=== PATIENT | male | born 1970 | race Hispanic/Latino ===

== ENCOUNTER 2018-04-02 10:42 | Inpatient (IN) | payer OTHER ==
[2018-04-02] MEDS ORDERED: ATIVAN IV PRN (10:58)
--- NOTE | 2018-04-02 11:10 | Emergency Department Report ---
ED General Adult HPI - General Chief complaint: Altered Mental Status Stated complaint: DETOX Time Seen by Provider: 04/02/18 10:49 Source: patient, police, EMS (ems notes not available at time of chart dictation), RN notes reviewed Mode of arrival: Stretcher Limitations: Altered Mental Status - History of Present Illness Initial comments: This is a 47-year-old gentleman who is not known to this provider previously, who was sent to the ER for evaluation of delirium and possible alcohol withdrawal. Aspirin close documentation from local incarceration facility, patient "is confused and only oriented to self and thinks he is in the hospital. The p atient is laying in bed with tremors and an active delirium tremens and is on highest detox protocol of L at this time. Patient does not come to door or speak and when he does he is tangential and confused for recent and remote memory. Patient admits to drinking 3-4 beers a day and a fifth of vodka daily." The patient denies headache, neck pain, chest pain, abdominal pain, shortness of breath. He denies urinary symptoms, homicidality, suicidality, and intention to overdose. He corroborates that he does drink the aforementioned quantity of alcohol on a daily basis. His only request to this provider is that he get his BuSpar prescription, which he reports is at home. -: unknown Quality: other Consistency: other Improves with: other Worsens with: other Associated Symptoms: confusion, malaise, rash (chronic rash, consistent with history of psoriasis), weakness. denies: chest pain, cough, diaphoresis, fever/chills, headaches, loss of appetite, nausea/vomiting, seizure, shortness of breath, syncope - Related Data Allergies Allergy/AdvReac Type Severity Reaction Status Date / Time No Known Allergies Allergy Unverified 04/02/18 15:12 ED Review of Systems ROS: Stated complaint: DETOX Other details as noted in HPI Comment: Unobtainable due to pts medical conditions Constitutional: malaise. denies: fever Eyes: denies: eye discharge Respiratory: denies: cough Cardiovascular: denies: chest pain Gastrointestinal: denies: abdominal pain Genitourinary: denies: dysuria Musculoskeletal: arthralgia, myalgia, other (chronic) Skin: rash (chronic) Neurological: confusion (as per old medical records) Psychiatric: denies: homicidal thoughts, suicidal thoughts ED Physical Exam - General Limitations: Other (patient appears to be confused) General appearance: alert, in no apparent distress - Head Head exam: Present: atraumatic, normocephalic - Eye Eye exam: Present: normal appearance, EOMI. Absent: nystagmus - ENT ENT exam: Present: normal exam, normal orophraynx, mucous membranes moist, normal external ear exam, other (chronic facial rash noted, consistent with history of psoriasis) - Neck Neck exam: Present: normal inspection, full ROM. Absent: tenderness, meningismus - Respiratory Respiratory exam: Present: normal lung sounds bilaterally. Absent: respiratory distress - Cardiovascular Cardiovascular Exam: Present: regular rate, normal rhythm, normal heart sounds. Absent: bradycardia, tachycardia, irregular rhythm, systolic murmur, diastolic murmur, rubs, gallop - GI/Abdominal GI/Abdominal exam: Present: soft. Absent: distended, tenderness, guarding, rebound, rigid, pulsatile mass - Rectal Rectal exam: Present: deferred - Extremities Exam Extremities exam: Present: normal inspection (patient has chronic appearing erythematous distribution to right knee, it is nontender, and there is no joint laxity. The compartments are soft. Patient reports that this is a chronic finding), full ROM, other (2+ pulses noted in the bilateral upper, lower extremities. Compartments soft. No long bony tenderness. The pelvis is stable.). Absent: calf tenderness - Back Exam Back exam: Present: normal inspection, full ROM. Absent: tenderness, CVA tenderness (R), paraspinal tenderness, vertebral tenderness - Neurological Exam Neurological exam: Present: alert (patient is alert to name. He does not know the year. He thinks he is in a hospital.), other (there is no facial droop. The tongue is midline. Extraocular movements are intact bilaterally. 5 out of 5 strength in 4 extremities. Sensation intact to light touch in 4 extremities. Patient has tremor in 4 extremities. It appears to be intentional. It is not resting. No obvious tongue fasciculations noted.) - Psychiatric Psychiatric exam: Present: flat affect. Absent: homicidal ideation, suicidal ideation - Skin Skin exam: Present: warm ED Course Vital Signs 04/02/18 04/02/18 04/02/18 09:35 09:48 10:58 Temperature Pulse Rate 78 Respiratory 18 Rate Blood Pressure 175/99 175/99 175/99 O2 Sat by Pulse 100 99 Oximetry 04/02/18 04/02/18 04/02/18 11:06 11:08 11:38 Temperature 98.4 F Pulse Rate 74 Respiratory 13 13 15 Rate Blood Pressure 141/80 141/80 141/80 O2 Sat by Pulse 100 Oximetry 04/02/18 04/02/18 12:00 12:16 Temperature Pulse Rate 77 89 Respiratory 18 12 Rate Blood Pressure 140/74 140/74 O2 Sat by Pulse Oximetry - Reevaluation(s) Reevaluation #1: 04/02/18 11:09 Differential diagnosis, including not limited to: Alcohol withdrawal, toxic encephalopathy, metabolic encephalopathy, electrolyte derangements Assessment and plan: 47-year-old gentleman with probable mild alcohol withdrawal. He follows commands and is protecting his airway, he has tremors that are intentional in 4 extremities, they do not appear to be present at rest, and he does not have tongue fasciculations. Clinically doubt delirium tremens per se, but finally feasible that patient may be on the alcohol withdrawal spectrum. He is not homicidal or suicidal, and does not require 1013 at this time. He'll be placed on a traffic monitor specialist, x-ray of the chest, noncontrast CT scan of the brain will be obtained; there is no history of trauma. Patient was started on D5 half-normal, and he'll be started on benzodiazepines as needed in accordance with this [facility] protocol Reevaluation #2: 04/02/18 12:03 Laboratory studies show evidence of coagulopathy, hypokalemia, hypomagnesemia, l actic acidosis likely secondary to alcohol dependence, and hyperbilirubinemia, likely secondary to hepatocellular dysfunction, secondary to alcohol consumption. Most concerning, the patient's laboratory studies suggest rhabdomyolysis, with a creatinine kinase of 7700. We will give him IV fluids, h e will be given D5 half-normal for presumed starvation ketosis, lactic acidosis, his electrolytes will be repleted, and he will be admitted to the medical service. A noncontrast CT scan of the brain is negative. X-ray of the chest interpreted by this provider is negative. Elevated lactic acidosis is likely secondary to chronic alcoholism, at this point time, do not currently suspect pneumonia, urinary tract infection or bacteremia. Reevaluation #3: 04/02/18 13:26 Dr. Putnam, the hospital physician, accepts the patient to the medical service. ED Medical Decision Making - Lab Data Result diagrams: 04/02/18 11:05 04/02/18 11:05 Vital Signs 04/02/18 04/02/18 11:06 11:08 Temperature 98.4 F Respiratory 13 Rate Blood Pressure 141/80 O2 Sat by Pulse 100 Oximetry - EKG Data -: EKG Interpreted by Ak EKG shows normal: sinus rhythm - EKG Data When compared to previous EKG there are: previous EKG unavailable 04/02/18 11:10 Limited by motion artifact, normal sinus, 79 beats per minutes, motion artifact, QTC prolonged, I left ventricular voltage, borderline atrial enlargement, abnormal EKG, not consistent with ST elevation myocardial infarction - Radiology Data Radiology results: report reviewed, image reviewed Noncontrast CT ET scan of the brain is negative. X-ray of the chest, interpreted by this provider is negative for acute disease. Critical care attestation.: If time is entered above; I have spent that time in minutes in the direct care of this critically ill patient, excluding procedure time. ED Disposition Clinical Impression: Alcohol withdrawal delirium, Hypokalemia, Hypomagnesemia Rhabdomyolysis Qualifiers: Rhabdomyolysis type: non-traumatic Qualified Code(s): M62.82 - Rhabdomyolysis Disposition: DC-09 OP ADMIT IP TO THIS HOSP Is pt being admited?: Yes Condition: Fair
--- NOTE | 2018-04-02 11:28 | Cat Scan Report ---
CT HEAD WITHOUT CONTRAST: HISTORY: EtOH delirium. TECHNIQUE: Sequential 2.5mm CT images. COMPARISON: none. FINDINGS: Cerebral Parenchyma: Within normal limits. Cerebellum: Within normal limits. Brainstem: Within normal limits. Ventricles: Normal. Sella: Normal. Extra-axial spaces: Normal. Basal Cisterns: Normal. Intracranial Hemorrhage: None. Midline Shift: None. Calvarium: Normal. Sinuses: Normal. Mastoid Air Cells: Normal. Visualized Orbits: Normal. IMPRESSION: Cranial CT scan within normal limits.
[2018-04-02] MEDS: ATIVAN IV PRN ×3 (11:41→19:54)
[2018-04-02 11:42] LABS: Alanine Aminotransferase 47 units/L (7-56); BUN/Creatinine Ratio 15; Blood Urea Nitrogen 9 mg/dL (9-20); Calcium 8.6 mg/dL (8.4-10.2); Hemolysis Index 6
[2018-04-02] MEDS ORDERED: K-DUR PO ONE (11:44)
[2018-04-02 11:50] LABS: Hematocrit 46.6 % (35.5-45.6); Mean Corpuscular HGB Conc 34 % (32-34); Mean Corpuscular Hemoglobin 36 pg (28-32); Mean Corpuscular Volume 105 fl (84-94); Red Blood Count 4.46 M/mm3 (3.65-5.03); Red Cell Distribution Width 14.5 % (13.2-15.2)
[2018-04-02 11:57] LABS: INR 1.68 (0.87-1.13)
[2018-04-02] MEDS ORDERED: NACL 0.9% 1000 ML 2,000 ML IV ONE (11:57)
[2018-04-02 11:58] LABS: Partial Thromboplastin Time 36.7 Sec. (24.2-36.6)
[2018-04-02] MEDS: KCL 10MEQ/100ML 10 MEQ/100 ML BAG IV SCH ×2 (12:21→13:27)
--- NOTE | 2018-04-02 12:25 | XRay Report ---
AP CHEST: HISTORY: Altered mental status, withdrawal AP view of the chest demonstrates a normal mediastinal and cardiac contour with clear lungs and normal bony and soft tissue structures. IMPRESSION: Unremarkable AP chest.
[2018-04-02] MEDS ORDERED: MAGNESIUM SULFATE 2GM/50ML 2 GM/50 ML BAG IV ONE (12:44)
[2018-04-02 12:57] LABS: Basophils % (Manual) 0 % (0.0-1.8); Eosinophils % (Manual) 0 % (0.0-4.3); Total Cells Counted 100
[2018-04-02 12:58] LABS: Macrocytosis 1+; Poikilocytosis 1+
[2018-04-02 12:59] LABS: Platelet Count 29 K/mm3 (140-440); Platelet Estimate Appears Decreased
--- NOTE | 2018-04-02 13:36 | History and Physical Report ---
History of Present Illness Chief complaint: confused. History of present illness: 47 YO Male with ETOH Abuse, Psoriasis presents to ED for evaluation. Pt is confused, lethargic and unable to provide detailed history. Pt history taken from ED staff. Pt currently incarcerated. Pt reports to drinkin g 3-4 beers daily as well as a fifth of vodka daily. No reports of fever, chills, CP, Palpitations, NVD, Trauma, BRBPR, Unintentional weight loss, or night sweats. Pt seen and evaluated in ED and found to be confused, agitated, tremulous and to have Alcohol Withdrawl with Delirium Tremens as well as Rhabdomyolysis. Pt i nitiated on [facility] protocol, and admitted to Telemetry. No further history obtainable. Past History Past Medical History: other (Psoriasis) Past Surgical History: No surgical history, Other (reviewed) Social history: alcohol abuse Family history: no significant family history (reviewed) Medications and Allergies Active Meds: Active Medications Chlordiazepoxide HCl (Librium) 50 mg PO Q1HR PRN PRN Reason: CIWA-Ar 8-15 Dextrose/Sodium Chloride (D5/0.45ns) 1,000 mls @ 0 mls/hr IV DIRECT REJI Magnesium Sulfate (Magnesium Sulfate 2gm/50ml) 2 gm in 50 mls @ 25 mls/hr IV ONCE ONE Stop: 04/02/18 14:43 Last Admin: 04/02/18 13:18 Dose: 25 mls/hr Documented by: Potassium Chloride (Kcl 10meq/100ml) 10 meq in 100 mls @ 100 mls/hr IV Q1H REJI Stop: 04/02/18 13:59 Last Admin: 04/02/18 13:27 Dose: 100 mls/hr Documented by: Lorazepam (Ativan) 2 mg IV Q1HR PRN PRN Reason: CIWA-Ar 8-15 Last Admin: 04/02/18 11:41 Dose: 2 mg Documented by: Lorazepam (Ativan) 4 mg IV Q1HR PRN PRN Reason: CIWA-Ar 16-25 Lorazepam (Ativan) 4 mg IV Q15MIN PRN PRN Reason: CIWA-Ar >25 Review of Systems ROS unobtainable: due to mental status Exam - Constitutional Vitals: Temp Pulse Resp BP Pulse Ox 98.4 F 89 12 140/74 100 04/02/18 11:08 04/02/18 12:16 04/02/18 12:16 04/02/18 12:16 04/02/18 11:06 General appearance: Present: mild distress - EENT Eyes: Present: miosis - Neck Neck: Present: supple, normal ROM - Respiratory Respiratory effort: normal Respiratory: bilateral: CTA - Cardiovascular Heart Sounds: Present: S1 & S2. Absent: rub, click - Extremities Extremities: pulses symmetrical, No edema Peripheral Pulses: within normal limits - Abdominal General gastrointestinal: Present: soft, non-tender, non-distended, normal bowel sounds Male genitourinary: Present: normal - Integumentary Integumentary: Present: clear, dry, erythema, rash - Musculoskeletal Musculoskeletal: generalized weakness - Psychiatric Psychiatric: no appropriate mood/affect, no intact judgment & insight, no memory intact, agitated - Neurologic Neurologic: moves all extremities, no gait normal Results - Labs CBC & Chem 7: 04/02/18 11:05 04/02/18 11:05 Labs: Abnormal lab results 04/02/18 04/02/18 04/02/18 Range/Units 11:05 11:05 11:05 WBC 3.8 L (4.5-11.0) K/mm3 Hgb 16.0 H (11.8-15.2) gm/dl Hct 46.6 H (35.5-45.6) % MCV 105 H (84-94) fl MCH 36 H (28-32) pg Plt Count 29 L (140-440) K/mm3 Monocytes % (Manual) 10.0 H (0.0-7.3) % Lymphocytes # (Manual) 0.8 L (1.2-5.4) K/mm3 PT 20.2 H (12.2-14.9) Sec. INR 1.68 H (0.87-1.13) APTT 36.7 H (24.2-36.6) Sec. Sodium 136 L (137-145) mmol/L Potassium 3.2 L (3.6-5.0) mmol/L Chloride 93.0 L (98-107) mmol/L Creatinine 0.6 L (0.8-1.5) mg/dL Lactic Acid (0.7-2.0) mmol/L Magnesium 1.40 L (1.7-2.3) mg/dL Total Bilirubin 6.40 H (0.1-1.2) mg/dL AST 289 H (5-40) units/L Total Creatine Kinase 7792 H (55-170) units/L Albumin 3.0 L (3.9-5) g/dL Salicylates (2.8-20.0) mg/dL Acetaminophen (10.0-30.0) ug/mL 04/02/18 04/02/18 04/02/18 Range/Units 11:05 11:05 11:05 WBC (4.5-11.0) K/mm3 Hgb (11.8-15.2) gm/dl Hct (35.5-45.6) % MCV (84-94) fl MCH (28-32) pg Plt Count (140-440) K/mm3 Monocytes % (Manual) (0.0-7.3) % Lymphocytes # (Manual) (1.2-5.4) K/mm3 PT (12.2-14.9) Sec. INR (0.87-1.13) APTT (24.2-36.6) Sec. Sodium (137-145) mmol/L Potassium (3.6-5.0) mmol/L Chloride (98-107) mmol/L Creatinine (0.8-1.5) mg/dL Lactic Acid 2.30 H* (0.7-2.0) mmol/L Magnesium (1.7-2.3) mg/dL Total Bilirubin (0.1-1.2) mg/dL AST (5-40) units/L Total Creatine Kinase (55-170) units/L Albumin (3.9-5) g/dL Salicylates < 0.3 L (2.8-20.0) mg/dL Acetaminophen < 5.0 L (10.0-30.0) ug/mL Assessment and Plan - Patient Problems (1) Encephalopathy Current Visit: Yes Status: Acute Plan to address problem: CT head, neuro check, aspiration precautions, fall precautions, seizure precautions. (2) Alcohol withdrawal delirium Current Visit: Yes Status: Acute Plan to address problem: Ciwa protocol, ativan prn, admit to telemetry (3) Rhabdomyolysis Current Visit: Yes Status: Acute Qualifiers: Rhabdomyolysis type: non-traumatic Qualified Code(s): M62.82 - Rhabdomyolysis Plan to address problem: IVF resuscitation, supportive care, CK level (4) DVT prophylaxis Current Visit: Yes Status: Acute Plan to address problem: SCD to BLE while in bed.
[2018-04-02] MEDS ORDERED: ZOFRAN IV PRN (13:39)
[2018-04-02] MEDS ORDERED: SODIUM CHLORIDE FLUSH SYRINGE 10 ML IV PRN (13:39)
[2018-04-02] MEDS ORDERED: TYLENOL PO PRN (13:39)
[2018-04-02] MEDS: LIBRIUM PO PRN ×2 (13:50→17:00)
[2018-04-02] MEDS: D5/0.45NS 1,000 ML IV SCH ×2 (16:28→20:10)
[2018-04-02 20:11] LABS: Bilirubin,Urine NEG (Negative); Blood,Urine NEG (Negative); Color,Urine Yellow (Yellow); Protein,Urine <15 mg/dL mg/dL (Negative)
[2018-04-02] MEDS: SODIUM CHLORIDE FLUSH SYRINGE 10 ML IV SCH (21:28)
[2018-04-03] MEDS: D5/0.45NS 1,000 ML IV SCH (04:46)
[2018-04-03 06:24] LABS: Alanine Aminotransferase 47 units/L (7-56); Albumin 2.6 g/dL (3.9-5); BUN/Creatinine Ratio 8; Blood Urea Nitrogen 5 mg/dL (9-20); Calcium 7.4 mg/dL (8.4-10.2); Hemolysis Index 7
[2018-04-03] MEDS: SODIUM CHLORIDE FLUSH SYRINGE 10 ML IV SCH ×2 (09:01→22:52)
[2018-04-03] MEDS ORDERED: K-DUR PO ONE ×2 (11:30→22:00)
[2018-04-03 11:34] LABS: Hemoglobin 13.6 gm/dl (11.8-15.2); Mean Corpuscular HGB Conc 34 % (32-34); Mean Corpuscular Hemoglobin 36 pg (28-32); Mean Corpuscular Volume 105 fl (84-94); Red Cell Distribution Width 14.4 % (13.2-15.2)
[2018-04-03 11:37] LABS: Platelet Count 28 K/mm3 (140-440)
[2018-04-03] MEDS: KCL 10MEQ/100ML 10 MEQ/100 ML BAG IV SCH ×3 (11:51→15:06)
--- NOTE | 2018-04-03 18:08 | Progress Note ---
Assessment and Plan / Encephalopathy, alfred from alcohol withdrawl Unremarkable CT head, cont neuro check, aspiration precautions, fall precautions, seizure precautions. / Alcohol withdrawal delirium Ciwa protocol, ativan prn, monitor at telemetry / Rhabdomyolysis IVF resuscitation, supportive care, monitor CK level / DVT prophylaxis SCD to BLE while in bed. Subjective Date of service: 04/03/18 Interval history: Patient seen and examined No acute event o/n appears on restarint, still little confused Objective - Exam Narrative Exam: General appearance: Present: mild distress - EENT Eyes: Present: miosis - Neck Neck: Present: supple, normal ROM - Respiratory Respiratory effort: normal Respiratory: bilateral: CTA - Cardiovascular Heart Sounds: Present: S1 & S2. Absent: rub, click - Extremities Extremities: pulses symmetrical, No edema Peripheral Pulses: within normal limits - Abdominal General gastrointestinal: Present: soft, non-tender, non-distended, normal bowel sounds Male genitourinary: Present: normal - Integumentary Integumentary: Present: clear, dry, erythema, rash - Musculoskeletal Musculoskeletal: generalized weakness - Psychiatric Psychiatric: appropriate mood/affect, no intact judgment & insight, no memory intact, not agitated, more quite - Neurologic Neurologic: moves all extremities, no gait normal - Constitutional Vitals: Vital Signs - 12hr 04/03/18 04/03/18 04/03/18 08:19 09:17 10:00 Temperature 98.3 F Pulse Rate 78 73 Pulse Rate [ 78 From Monitor] Respiratory 16 16 Rate Blood Pressure 147/91 O2 Sat by Pulse 99 99 98 Oximetry 04/03/18 04/03/18 13:50 13:53 Temperature 98.3 F 98.2 F Pulse Rate 74 Pulse Rate [ From Monitor] Respiratory 17 18 Rate Blood Pressure 152/86 125/83 O2 Sat by Pulse 98 Oximetry - Labs CBC & Chem 7: 04/04/18 06:21 04/04/18 06:21 Labs: Abnormal lab results 04/03/18 04/03/18 04/03/18 Range/Units 05:00 06:41 11:20 WBC 3.2 L (4.5-11.0) K/mm3 MCV 105 H (84-94) fl MCH 36 H (28-32) pg Plt Count 28 L (140-440) K/mm3 Sodium 133 L (137-145) mmol/L Potassium 2.9 L* (3.6-5.0) mmol/L Chloride 93.5 L (98-107) mmol/L BUN 5 L (9-20) mg/dL Creatinine 0.6 L (0.8-1.5) mg/dL Glucose 108 H (75-100) mg/dL POC Glucose 121 H (70-105) Calcium 7.4 L (8.4-10.2) mg/dL Total Bilirubin 6.10 H (0.1-1.2) mg/dL AST 275 H (5-40) units/L Total Protein 5.6 L D (6.3-8.2) g/dL Albumin 2.6 L (3.9-5) g/dL 12/18/18 Range/Units 17:20 WBC (4.5-11.0) K/mm3 MCV (84-94) fl MCH (28-32) pg Plt Count (140-440) K/mm3 Sodium (137-145) mmol/L Potassium 3.2 L (3.6-5.0) mmol/L Chloride (98-107) mmol/L BUN (9-20) mg/dL Creatinine (0.8-1.5) mg/dL Glucose (75-100) mg/dL POC Glucose (70-105) Calcium (8.4-10.2) mg/dL Total Bilirubin (0.1-1.2) mg/dL AST (5-40) units/L Total Protein (6.3-8.2) g/dL Albumin (3.9-5) g/dL
[2018-04-03] MEDS: LIBRIUM PO PRN (22:52)
[2018-04-04 06:33] LABS: Hematocrit 38.1 % (35.5-45.6); Hemoglobin 12.9 gm/dl (11.8-15.2)
--- NOTE | 2018-04-04 06:39 | XRay Report ---
FINAL REPORT EXAM: XR KNEE 3V RT HISTORY: New bruise and swelling TECHNIQUE: Three views of the right knee were submitted. FINDINGS: There is prominent prepatellar and infrapatellar anterior soft tissue swelling. Joint fluid is not se en. There is no evidence of fracture. All 3 compartments otherwise are well maintained. IMPRESSION: Anterior prepatellar and infrapatellar soft tissue swelling. No evidence of fracture.
[2018-04-04] MEDS: D5/0.45NS 1,000 ML IV SCH ×3 (06:54→22:03)
[2018-04-04 07:12] LABS: BUN/Creatinine Ratio 5; Blood Urea Nitrogen 3 mg/dL (9-20); Calcium 7.3 mg/dL (8.4-10.2); Hemolysis Index 10
[2018-04-04] MEDS: SODIUM CHLORIDE FLUSH SYRINGE 10 ML IV SCH ×2 (11:00→22:04)
[2018-04-04] MEDS: K-DUR PO SCH (15:39)
--- NOTE | 2018-04-04 16:49 | Progress Note ---
Assessment and Plan / Encephalopathy, likley from alcohol withdrawl Unremarkable CT head, cont neuro check, aspiration precautions, fall precautions, seizure precautions. / Alcohol withdrawal delirium Ciwa protocol, ativan prn, monitor at telemetry / Rhabdomyolysis IVF resuscitation, supportive care, monitor CK level / DVT prophylaxis SCD to BLE while in bed. Subjective Date of service: 04/04/18 Interval history: Patient seen and examined No acute event o/n off restraint today, still little confused but following commend Objective - Exam Narrative Exam: General appearance: Present: mild distress - EENT Eyes: Present: miosis - Neck Neck: Present: supple, normal ROM - Respiratory Respiratory effort: normal Respiratory: bilateral: CTA - Cardiovascular Heart Sounds: Present: S1 & S2. Absent: rub, click - Extremities Extremities: pulses symmetrical, No edema Peripheral Pulses: within normal limits - Abdominal General gastrointestinal: Present: soft, non-tender, non-distended, normal bowel sounds Male genitourinary: Present: normal - Integumentary Integumentary: Present: clear, dry, erythema, rash - Musculoskeletal Musculoskeletal: generalized weakness - Psychiatric Psychiatric: appropriate mood/affect, no intact judgment & insight, no memory intact, not agitated, more quite - Neurologic Neurologic: moves all extremities, no gait normal - Constitutional Vitals: Vital Signs - 12hr 04/04/18 04/04/18 04/04/18 08:31 10:00 13:17 Temperature 97.9 F 98.0 F Pulse Rate 76 73 81 Respiratory 20 20 Rate Blood Pressure 124/72 137/75 O2 Sat by Pulse 95 98 Oximetry - Labs CBC & Chem 7: 04/04/18 06:21 04/04/18 06:21 Labs: Abnormal lab results 04/03/18 04/04/18 Range/Units 17:20 06:21 Sodium 131 L (137-145) mmol/L Potassium 3.2 L (3.6-5.0) mmol/L Chloride 94.8 L (98-107) mmol/L BUN 3 L (9-20) mg/dL Creatinine 0.6 L (0.8-1.5) mg/dL Glucose 104 H (75-100) mg/dL Calcium 7.3 L (8.4-10.2) mg/dL
[2018-04-04] MEDS: ATIVAN IV PRN (19:44)
[2018-04-04] MEDS ORDERED: ATIVAN IV PRN ×2 (20:45)
[2018-04-05] MEDS: D5/0.45NS 1,000 ML IV SCH (07:04)
[2018-04-05] MEDS: K-DUR PO SCH (10:28)
[2018-04-05] MEDS: SODIUM CHLORIDE FLUSH SYRINGE 10 ML IV SCH (10:39)
--- NOTE | 2018-04-05 16:41 | Progress Note ---
Assessment and Plan / Encephalopathy, alfred from alcohol withdrawl Unremarkable CT head, cont neuro check, aspiration precautions, fall precautions, seizure precautions. cont restraint as he is still confused and unsteady alecia / Alcohol withdrawal delirium Ciwa protocol, ativan prn, monitor at telemetry / Rhabdomyolysis IVF resuscitation, supportive care, monitor CK level / DVT prophylaxis SCD to BLE while in bed. Subjective Date of service: 04/05/18 Interval history: Patient seen and examined No acute event o/n on restraint today, still little confused Objective - Exam Narrative Exam: General appearance: Present: mild distress - EENT Eyes: Present: miosis - Neck Neck: Present: supple, normal ROM - Respiratory Respiratory effort: normal Respiratory: bilateral: CTA - Cardiovascular Heart Sounds: Present: S1 & S2. Absent: rub, click - Extremities Extremities: pulses symmetrical, No edema Peripheral Pulses: within normal limits - Abdominal General gastrointestinal: Present: soft, non-tender, non-distended, normal bowel sounds Male genitourinary: Present: normal - Integumentary Integumentary: Present: clear, dry, erythema, rash - Musculoskeletal Musculoskeletal: generalized weakness - Psychiatric Psychiatric: appropriate mood/affect, no intact judgment & insight, no memory intact, not agitated, more quite - Neurologic Neurologic: moves all extremities, no gait normal - Constitutional Vitals: Vital Signs - 12hr 04/05/18 09:06 Temperature 93.7 F L Pulse Rate 86 Respiratory 17 Rate Blood Pressure 147/86 O2 Sat by Pulse 99 Oximetry - Labs CBC & Chem 7: 04/06/18 05:38 04/06/18 05:38 Labs: Abnormal lab results 04/05/18 Range/Units 06:47 POC Glucose 118 H (70-105)
[2018-04-06] MEDS: SODIUM CHLORIDE FLUSH SYRINGE 10 ML IV SCH ×3 (00:03→22:43)
[2018-04-06] MEDS: D5/0.45NS 1,000 ML IV SCH ×4 (02:21→23:04)
[2018-04-06 06:07] LABS: Hematocrit 35.6 % (35.5-45.6); Hemoglobin 12.1 gm/dl (11.8-15.2); Mean Corpuscular HGB Conc 34 % (32-34); Mean Corpuscular Hemoglobin 36 pg (28-32); Mean Corpuscular Volume 107 fl (84-94); Red Blood Count 3.33 M/mm3 (3.65-5.03); Red Cell Distribution Width 14.7 % (13.2-15.2)
[2018-04-06 06:16] LABS: Platelet Count 47 K/mm3 (140-440)
[2018-04-06 06:32] LABS: Alanine Aminotransferase 40 units/L (7-56); Albumin 2.6 g/dL (3.9-5); BUN/Creatinine Ratio 8; Bilirubin,Direct 2.4 mg/dL (0-0.2); Blood Urea Nitrogen 4 mg/dL (9-20); Calcium 7.7 mg/dL (8.4-10.2); Hemolysis Index 22
[2018-04-06 07:15] LABS: Band Neutrophils # (Manual) 0.1 K/mm3; Basophils % (Manual) 0 % (0.0-1.8); Total Cells Counted 100
[2018-04-06 07:16] LABS: Anisocytosis 1+; Ovalocytes 1+; Platelet Estimate Appears Decreased; Target Cells Few; Tear Drop Cells Few
[2018-04-06] MEDS: K-DUR PO SCH (09:01)
--- NOTE | 2018-04-06 16:09 | Progress Note ---
Assessment and Plan / Encephalopathy, likely from alcohol withdrawl Unremarkable CT head, cont neuro check, aspiration precautions, fall precautions, seizure precautions. cont restraint as he is still confused and unsteady gait We'll consult psych / Alcohol withdrawal delirium Ciwa protocol, ativan prn, monitor at telemetry /Seborrheic dermatitis Started on ketoconazole cream daily / Rhabdomyolysis IVF resuscitation, supportive care, monitor CK level / DVT prophylaxis SCD to BLE while in bed. Subjective Date of service: 04/06/18 Interval history: Patient seen and examined No acute event o/n on restraint today, still little confused Objective - Exam Narrative Exam: General appearance: Present: mild distress - EENT Eyes: Present: miosis - Neck Neck: Present: supple, normal ROM - Respiratory Respiratory effort: normal Respiratory: bilateral: CTA - Cardiovascular Heart Sounds: Present: S1 & S2. Absent: rub, click - Extremities Extremities: pulses symmetrical, No edema Peripheral Pulses: within normal limits - Abdominal General gastrointestinal: Present: soft, non-tender, non-distended, normal bowel sounds Male genitourinary: Present: normal - Integumentary Integumentary: Present: clear, dry, erythema, rash - Musculoskeletal Musculoskeletal: generalized weakness - Psychiatric Psychiatric: appropriate mood/affect, no intact judgment & insight, no memory intact, not agitated, more quite - Neurologic Neurologic: moves all extremities, no gait normal - Labs CBC & Chem 7: 04/06/18 05:38 04/06/18 05:38 Labs: Abnormal lab results 04/06/18 04/06/18 Range/Units 05:38 05:38 WBC 3.6 L (4.5-11.0) K/mm3 RBC 3.33 L (3.65-5.03) M/mm3 MCV 107 H (84-94) fl MCH 36 H (28-32) pg Plt Count 47 L (140-440) K/mm3 Monocytes % (Manual) 11.0 H (0.0-7.3) % Lymphocytes # (Manual) 1.1 L (1.2-5.4) K/mm3 Sodium 131 L (137-145) mmol/L Chloride 95.7 L (98-107) mmol/L BUN 4 L (9-20) mg/dL Creatinine 0.5 L (0.8-1.5) mg/dL Glucose 105 H (75-100) mg/dL Calcium 7.7 L (8.4-10.2) mg/dL Total Bilirubin 6.10 H (0.1-1.2) mg/dL Direct Bilirubin 2.4 H (0-0.2) mg/dL AST 163 H (5-40) units/L Total Protein 6.0 L (6.3-8.2) g/dL Albumin 2.6 L (3.9-5) g/dL
[2018-04-07] MEDS: D5/0.45NS 1,000 ML IV SCH (05:38)
[2018-04-07] MEDS: K-DUR PO SCH (10:07)
[2018-04-07] MEDS: SODIUM CHLORIDE FLUSH SYRINGE 10 ML IV SCH ×2 (10:07→22:19)
--- NOTE | 2018-04-07 17:28 | Progress Note ---
Assessment and Plan / Encephalopathy, likely from alcohol withdrawl Unremarkable CT head, cont neuro check, aspiration precautions, fall precautions, seizure precautions. cont restraint as he is still confused and unsteady gait consulted psych, will follow recommendation / Alcohol withdrawal delirium Ciwa protocol, ativan prn, monitor at telemetry /Seborrheic dermatitis Started on kitoconazole cream daily /Right lower extremity Bruise - Follow up LE CT scan result - pending / Rhabdomyolysis IVF resuscitation, supportive care, monitor CK level / DVT prophylaxis SCD to BLE while in bed. Subjective Date of service: 04/07/18 Interval history: Patient seen and examined No acute event o/n on restraint today, still little confused Objective - Exam Narrative Exam: General appearance: Present: mild distress - EENT Eyes: Present: miosis - Neck Neck: Present: supple, normal ROM - Respiratory Respiratory effort: normal Respiratory: bilateral: CTA - Cardiovascular Heart Sounds: Present: S1 & S2. Absent: rub, click - Extremities Extremities: pulses symmetrical, No edema Peripheral Pulses: within normal limits - Abdominal General gastrointestinal: Present: soft, non-tender, non-distended, normal bowel sounds Male genitourinary: Present: normal - Integumentary Integumentary: Present: clear, dry, erythema, rash - Musculoskeletal Musculoskeletal: generalized weakness - Psychiatric Psychiatric: appropriate mood/affect, no intact judgment & insight, no memory intact, not agitated, more quite - Neurologic Neurologic: moves all extremities, no gait normal - Constitutional Vitals: Vital Signs - 12hr 04/07/18 04/07/18 04/07/18 08:32 10:00 11:41 Temperature 98.5 F 98.4 F Pulse Rate 80 79 90 Respiratory 16 16 Rate Blood Pressure 148/89 132/68 O2 Sat by Pulse 97 100 Oximetry - Labs CBC & Chem 7: 04/06/18 05:38 04/06/18 05:38
[2018-04-08] MEDS: K-DUR PO SCH (09:02)
[2018-04-08] MEDS: SODIUM CHLORIDE FLUSH SYRINGE 10 ML IV SCH ×2 (09:03→22:15)
[2018-04-08] MEDS: D5NS 1,000 ML IV SCH ×2 (11:58→23:46)
--- NOTE | 2018-04-08 14:04 | Progress Note ---
Assessment and Plan / Encephalopathy, likely from alcohol withdrawl Unremarkable CT head, cont neuro check, aspiration precautions, fall precautions, seizure precautions. cont restraint as he is still confused and unsteady gait consulted psych, will follow recommendation / Alcohol withdrawal delirium Ciwa protocol, ativan prn, monitor at telemetry /Seborrheic dermatitis Started on kitoconazole cream daily /Right lower extremity Bruise - Follow up LE CT scan result - pending / Rhabdomyolysis IVF resuscitation, supportive care, monitor CK level / DVT prophylaxis SCD to BLE while in bed. Subjective Date of service: 04/08/18 Interval history: Patient seen and examined No acute event o/n on restraint today, still little confused CT still pending Objective - Exam Narrative Exam: General appearance: Present: mild distress - EENT Eyes: Present: miosis - Neck Neck: Present: supple, normal ROM - Respiratory Respiratory effort: normal Respiratory: bilateral: CTA - Cardiovascular Heart Sounds: Present: S1 & S2. Absent: rub, click - Extremities Extremities: pulses symmetrical, No edema Peripheral Pulses: within normal limits - Abdominal General gastrointestinal: Present: soft, non-tender, non-distended, normal bowel sounds Male genitourinary: Present: normal - Integumentary Integumentary: Present: clear, dry, erythema, rash - Musculoskeletal Musculoskeletal: generalized weakness - Psychiatric Psychiatric: appropriate mood/affect, no intact judgment & insight, no memory intact, not agitated, more quite - Neurologic Neurologic: moves all extremities, no gait normal - Constitutional Vitals: Vital Signs - 12hr 04/08/18 04/08/18 04/08/18 04:51 07:59 10:00 Temperature 99.3 F 98.0 F Pulse Rate 80 82 76 Respiratory 17 16 Rate Blood Pressure 96/44 95/45 O2 Sat by Pulse 98 99 Oximetry - Labs CBC & Chem 7: 04/06/18 05:38 04/06/18 05:38 Labs: Abnormal lab results 04/07/18 04/07/18 04/07/18 Range/Units 18:30 19:33 20:52 POC Glucose 67 L 116 H (70-105) Total Creatine Kinase 435 H (55-170) units/L 04/08/18 Range/Units 06:13 POC Glucose 68 L (70-105) Total Creatine Kinase (55-170) units/L
--- NOTE | 2018-04-08 20:18 | Consultation ---
History of Present Illness - Reason for Consult Consult date: 04/15/18 Reason for consult: Initial Psychiatric Evaluation - Chief Complaint Chief complaint: Patient asleep. - History of Present Psychiatric Illness Provider attempted to complete an initial psychiatric evaluation but patient is asleep. He refuses to speak with provider after several attempts. Per staff excessive sleep noted. Medications and Allergies Allergies Allergy/AdvReac Type Severity Reaction Status Date / Time No Known Allergies Allergy Unverified 04/02/18 15:12 Active Meds: Active Medications Acetaminophen (Tylenol) 650 mg PO Q4H PRN PRN Reason: Pain MILD(1-3)/Fever >100.5/LAW Last Admin: 04/08/18 00:27 Dose: 650 mg Documented by: Chlordiazepoxide HCl (Librium) 50 mg PO Q1HR PRN PRN Reason: CIWA-Ar 8-15 Last Admin: 04/03/18 22:52 Dose: 50 mg Documented by: Dextrose/Sodium Chloride (D5ns) 1,000 mls @ 75 mls/hr IV DIRECT [facility] Last Admin: 04/08/18 11:58 Dose: 75 mls/hr Documented by: Lorazepam (Ativan) 4 mg IV Q15MIN PRN PRN Reason: CIWA-Ar >25 Lorazepam (Ativan) 2 mg IV Q1H PRN PRN Reason: CIWA-Ar 8-15 Last Admin: 04/05/18 03:27 Dose: 2 mg Documented by: Lorazepam (Ativan) 4 mg IV Q1H PRN PRN Reason: CIWA-Ar 16-25 Ondansetron HCl (Zofran) 4 mg IV Q8H PRN PRN Reason: Nausea And Vomiting Potassium Chloride (K-Dur) 30 meq PO QDAY [facility] Last Admin: 04/08/18 09:02 Dose: 30 meq Documented by: Sodium Chloride (Sodium Chloride Flush Syringe 10 Ml) 10 ml IV BID [facility] Last Admin: 04/08/18 09:03 Dose: 10 ml Documented by: Sodium Chloride (Sodium Chloride Flush Syringe 10 Ml) 10 ml IV PRN PRN PRN Reason: LINE FLUSH Mental Status Exam - Vital signs Last Vital Signs Temp 98.1 F 04/08/18 19:31 Pulse 88 04/08/18 19:31 Resp 18 04/08/18 19:31 BP 101/56 04/08/18 19:31 Pulse Ox 98 04/08/18 19:31 - Exam Narrative exam: Unable to assess patient's mental status. Patient is asleep. Results Result Diagrams: 04/06/18 05:38 04/06/18 05:38 Abnormal lab results 04/07/18 04/07/18 04/07/18 Range/Units 18:30 19:33 20:52 POC Glucose 67 L 116 H (70-105) Total Creatine Kinase 435 H (55-170) units/L 04/08/18 Range/Units 06:13 POC Glucose 68 L (70-105) Total Creatine Kinase (55-170) units/L All other labs normal. Assessment and Plan Assessment and plan: Provider attempted to complete an initial psychiatric evaluation but patient is asleep. He refuses to speak with provider after several attempts. Per staff excessive sleep noted.
[2018-04-09] MEDS: K-DUR PO SCH (09:20)
[2018-04-09] MEDS: SODIUM CHLORIDE FLUSH SYRINGE 10 ML IV SCH (09:22)
--- NOTE | 2018-04-09 13:22 | Cat Scan Report ---
FINAL REPORT EXAM: CT LOWER EXTREMITY RT WO CON HISTORY: ecchymosis TECHNIQUE: CT of lower extremities performed. Axial images and coronal and sagittal reformatted imag es were obtained. No IV contrast was administered. PRIORS: None. FINDINGS: There is soft tissue swelling and edema on the right side. This most notably involves knee region ant erolaterally where there is a poorly defined mildly hyperdense collection which is possibly a hematom a. This measures about 4.8 x 1.6 cm. There is no fracture seen. There is no significant joint effusio n. There is no acute bony lesion identified. There are atherosclerotic vascular calcifications involv ing the femoral artery. IMPRESSION: There is soft tissue edema/swelling involving the right lower extremity most notably around the knee anterolaterally where there is a poorly defined collection, possibly a hematoma, in the subcutaneous tissues.
--- NOTE | 2018-04-09 15:37 | Progress Note ---
Assessment and Plan / Encephalopathy, likely from alcohol withdrawl Unremarkable CT head, cont neuro check, aspiration precautions, fall precautions, seizure precautions. Was placed on restraint as he was confused and unsteady gait consulted psych, will follow recommendation off RESTRAINT today / Alcohol withdrawal delirium Status post Ciwa protocol, stopped all Ativan As needed Librium by mouth only /Seborrheic dermatitis Started on kitoconazole cream daily /Right lower extremity Bruise/swelling/large ecchymosis - s/p LE CT scan showed no abscess or big hematoma - Continue supportive care, monitor H&H /Moderate malnutrition, continue nutrition boost / Rhabdomyolysis IVF resuscitation, supportive care, monitor CK level / DVT prophylaxis SCD to BLE while in bed. Disposition: Monitor off restraint, off CIWA protocol now, PT eval, follow psych recommendation Brief history: 47 YO Male with ETOH Abuse, Psoriasis presents to ED for evaluation with constipation and lethargy. Pt currently incarcerated and reported drinkin g 3- 4 beers daily as well as a fifth of vodka daily. Pt seen and evaluated in ED and found to be confused, agitated, tremulous and to have Alcohol Withdrawl with Delirium Tremens as well as Rhabdomyolysis. Pt initiated on CIWA protocol, and admitted to Telemetry. Subjective Date of service: 04/09/18 Interval history: Patient seen and examined No acute event o/n off restraint today, mental status appears clear Status post CT scan today Objective - Exam Narrative Exam: General appearance: Present: no distress - EENT Eyes: Present: miosis - Neck Neck: Present: supple, normal ROM - Respiratory Respiratory effort: normal Respiratory: bilateral: CTA - Cardiovascular Heart Sounds: Present: S1 & S2. Absent: rub, click - Extremities Extremities: pulses symmetrical, right lower extremity swelling Peripheral Pulses: within normal limits - Abdominal General gastrointestinal: Present: soft, non-tender, non-distended, normal bowel sounds Male genitourinary: Present: normal - Integumentary Integumentary: Present: clear, dry, erythema, rash - Musculoskeletal Musculoskeletal: generalized weakness, being bruises/ecchymosis on the right lower extremity - Psychiatric Psychiatric: appropriate mood/affect - Neurologic Neurologic: moves all extremities, - Constitutional Vitals: Vital Signs - 12hr 04/09/18 04/09/18 04/09/18 04:00 08:33 11:38 Temperature 98.6 F Pulse Rate 91 H 87 90 Respiratory 18 Rate Blood Pressure 125/65 [Left] O2 Sat by Pulse 97 Oximetry 04/09/18 13:01 Temperature 98.2 F Pulse Rate 84 Respiratory 18 Rate Blood Pressure 116/74 [Left] O2 Sat by Pulse 98 Oximetry - Labs CBC & Chem 7: 04/10/18 11:26 04/10/18 11:26
[2018-04-09] MEDS: D5NS 1,000 ML IV SCH (21:34)
[2018-04-10] MEDS: SODIUM CHLORIDE FLUSH SYRINGE 10 ML IV SCH ×3 (07:02→21:12)
[2018-04-10] MEDS: K-DUR PO SCH (10:07)
[2018-04-10] MEDS: D5NS 1,000 ML IV SCH ×2 (10:09→23:28)
--- NOTE | 2018-04-10 10:41 | Progress Note ---
<NICK MARCELO - Last Filed: 04/11/18 14:20> Mental Status Exam - Vital signs Last Vital Signs Temp 99.0 F 04/11/18 12:31 Pulse 84 04/11/18 12:31 Resp 16 04/11/18 12:31 BP 130/65 04/11/18 12:31 Pulse Ox 99 04/11/18 12:31 <IKER HUANG - Last Filed: 04/11/18 18:50> Subjective - Reason for Consult Consult date: 04/10/18 Reason for consult: Psychiatry Follow-up - Chief Complaint Chief complaint: "I have a drinking problem" 47 y.o. white male who presented to ER for ETOH. Today the patient is calm and cooperative during the assessment. He stated that he has a hx of anxiety and excessive alcohol use. He stated that he been drinking alcohol since he was a teenager. He stated that he never tried to stop drinking alcohol (etoh) per rehab services. He stated that drinking alcohol (etoh) has always been part of his life. He stated most recently he notice that he get anxious when around large crowds of people. He stated that can become anxious "just sitting around" per the patient. He stated that his PCP prescribed him Buspar and Zoloft for anxiety. He stated that he is willing to try rehab services for alcoholism once he is discharged from the hospital. He denies being depressed, SI/HI'a and AVH's. He denies erratic sleep and a poor appetite. He denies recreational drug use. Mental Status Exam - Vital signs Last Vital Signs Temp 97.7 F 04/10/18 09:08 Pulse 79 04/10/18 09:07 Resp 18 04/10/18 09:07 BP 129/72 04/10/18 09:07 Pulse Ox 97 04/10/18 09:07 - Exam Narrative exam: MSE: Appearance: calm, cooperative Behavior: regular eye contact Speech: regular rate and tone Mood: "okay" Affect: congruent to mood Thought Process: logical Thought Content: denies SI/HI's and AVH's Motor Activity: lying in bed Cognition: A/O x3 Insight: fair Judgment: appropriate Assessment and Plan Impression: Alcohol Use DO. Unspecified Anxiety DO. Today the patient is calm and cooperative during the assessment. Recommendation/Plan: Start Zoloft 25 mg PO daily for anxiety and Buspar 7.5 mg Po BID for anxiety. Discussed possible suicidality/medication induced miike with the patient reference Zoloft. Discussed the importance to abstain from alcohol consumption (etoh). Dispo: The patient would like 24 hours to determined if he would want to volunteer for the partial hospitalization program at [facility] once medically clear. Will staff with Dr Torey Fulton.
[2018-04-10 11:52] LABS: Hemoglobin 11.9 gm/dl (11.8-15.2); Mean Corpuscular HGB Conc 34 % (32-34); Mean Corpuscular Hemoglobin 36 pg (28-32); Mean Corpuscular Volume 107 fl (84-94); Red Blood Count 3.27 M/mm3 (3.65-5.03); Red Cell Distribution Width 14.9 % (13.2-15.2)
[2018-04-10 11:55] LABS: Platelet Count 75 K/mm3 (140-440)
[2018-04-10 12:12] LABS: BUN/Creatinine Ratio 10; Blood Urea Nitrogen 5 mg/dL (9-20); Calcium 7.6 mg/dL (8.4-10.2); Hemolysis Index 3
--- NOTE | 2018-04-10 14:32 | Progress Note ---
Assessment and Plan / Encephalopathy, likely from alcohol withdrawl Unremarkable CT head, cont neuro check, aspiration precautions, fall precautions, seizure precautions. Was placed on restraint as he was confused and unsteady gait consulted psych, will follow recommendation off RESTRAINT today / Alcohol withdrawal delirium Status post Ciwa protocol, stopped all Ativan As needed Librium by mouth only /Seborrheic dermatitis Started on kitoconazole cream daily /Right lower extremity Bruise/swelling/large ecchymosis - s/p LE CT scan showed no abscess or big hematoma - Continue supportive care, monitor H&H /Moderate malnutrition, continue nutrition boost / Rhabdomyolysis IVF resuscitation, supportive care, monitor CK level / DVT prophylaxis SCD to BLE while in bed. Disposition: Monitor off restraint, off CIWA protocol now, PT eval, follow psych recommendation Brief history: 47 YO Male with ETOH Abuse, Psoriasis presents to ED for evaluation with constipation and lethargy. Pt currently incarcerated and reported drinkin g 3- 4 beers daily as well as a fifth of vodka daily. Pt seen and evaluated in ED and found to be confused, agitated, tremulous and to have Alcohol Withdrawl with Delirium Tremens as well as Rhabdomyolysis. Pt initiated on CIWA protocol, and admitted to Telemetry. Subjective Date of service: 04/10/18 Interval history: Patient seen and examined No acute event o/n off restraint, mental status appears clear Objective - Constitutional Vitals: Vital Signs - 12hr 04/10/18 04/10/18 04/10/18 05:46 08:15 09:07 Temperature 98.2 F Pulse Rate 86 79 79 Respiratory 20 18 Rate Blood Pressure 123/73 129/72 Blood Pressure [Left] O2 Sat by Pulse 96 97 Oximetry 04/10/18 04/10/18 04/10/18 09:08 12:17 12:37 Temperature 97.7 F 99.0 F 97.6 F Pulse Rate 75 77 Respiratory 20 18 Rate Blood Pressure 148/79 Blood Pressure 102/61 [Left] O2 Sat by Pulse 99 100 Oximetry - Labs CBC & Chem 7: 04/10/18 11:26 04/10/18 11:26 Labs: Abnormal lab results 04/09/18 04/10/18 04/10/18 Range/Units 17:48 11:26 11:26 WBC 4.2 L (4.5-11.0) K/mm3 RBC 3.27 L (3.65-5.03) M/mm3 Hct 35.0 L (35.5-45.6) % MCV 107 H (84-94) fl MCH 36 H (28-32) pg Plt Count 75 L (140-440) K/mm3 Sodium 128 L (137-145) mmol/L Chloride 95.2 L (98-107) mmol/L BUN 5 L (9-20) mg/dL Creatinine 0.5 L (0.8-1.5) mg/dL Glucose 104 H (75-100) mg/dL POC Glucose 121 H (70-105) Calcium 7.6 L (8.4-10.2) mg/dL
[2018-04-10] MEDS: ZOLOFT PO SCH (14:43)
[2018-04-10] MEDS: BUSPAR PO SCH ×2 (14:43→21:12)
[2018-04-11] MEDS: BUSPAR PO SCH ×2 (10:00→21:45)
[2018-04-11] MEDS: ZOLOFT PO SCH (10:00)
[2018-04-11] MEDS: K-DUR PO SCH (10:00)
[2018-04-11] MEDS: SODIUM CHLORIDE FLUSH SYRINGE 10 ML IV SCH ×2 (10:02→21:45)
--- NOTE | 2018-04-11 12:43 | Progress Note ---
Assessment and Plan / Encephalopathy, likely from alcohol withdrawl Unremarkable CT head, cont neuro check, aspiration precautions, fall precautions, seizure precautions. Was placed on restraint as he was confused and unsteady gait consulted psych, will follow recommendation / Alcohol withdrawal delirium Status post Ciwa protocol, stopped all Ativan As needed Librium by mouth only /Seborrheic dermatitis Started on kitoconazole cream daily /Right lower extremity Bruise/swelling/large ecchymosis - s/p LE CT scan showed no abscess or big hematoma - Continue supportive care, monitor H&H /Moderate malnutrition, continue nutrition boost / Rhabdomyolysis IVF resuscitation, supportive care, monitor CK level / DVT prophylaxis SCD to BLE while in bed. Disposition: Monitor off restraint, off CIWA protocol now, PT eval, follow psych recommendation DC home in 1-2 days if he remains stable Subjective Date of service: 04/11/18 Principal diagnosis: metabolic encephalopathy, alcohol withdrawal Interval history: Still minimally confused. Objective - Exam Narrative Exam: Constitutional: Pleasantly confused. Well-nourished well-developed. In no distress Head: Normocephalic atraumatic Eyes: Pupils are equal round and reactive to light Nose: No enlarged turbinates, no septal deviation. Mouth: Moist mucous membranes. Neck: Supple no thyromegaly. No bruit. No JVD Heart: Regular rate and rhythm, S1-S2 normal. No rubs murmurs or gallop Lungs: Clear to auscultation bilaterally. no rales or rhonchi Abdomen: Soft, nontender. Bowel sound are present. Extremities: No edema, no cyanosis, no clubbing. Neuro: Alert oriented Oriented x3. No focal sensory or motor deficit. Skin: No rashes or hyperpigmented spots Musculoskeletal system: No joint pain or swelling Hematological: No petechia or subcutanous hemorrhages. Immunological: No multiple septic spots on the skin Lymphatic: No generalized lymphadenopathy Psychiatry: Euthymic. Calm. - Constitutional Vitals: Vital Signs - 12hr 04/11/18 04/11/18 04/11/18 05:17 08:14 10:00 Temperature 98.5 F 98.3 F Pulse Rate 71 76 68 Respiratory 18 16 Rate Blood Pressure 123/70 115/62 O2 Sat by Pulse 97 96 Oximetry 04/11/18 12:31 Temperature 99.0 F Pulse Rate 84 Respiratory 16 Rate Blood Pressure 130/65 O2 Sat by Pulse 99 Oximetry - Labs CBC & Chem 7: 04/10/18 11:26 04/10/18 11:26 Labs: Abnormal lab results 04/10/18 Range/Units 21:09 POC Glucose 134 H (70-105)
--- NOTE | 2018-04-11 14:20 | Progress Note ---
Subjective - Reason for Consult Consult date: 04/11/18 Reason for consult: Psychiatric Follow-up Evaluation - Chief Complaint Chief complaint: "I'm okay" Patient is a 47 y.o. white male who presented to ER for ETOH. Today the patient is calm and cooperative during the assessment. He stated that he has a hx of anxiety and excessive alcohol use. He stated that he been drinking alcohol since he was a teenager. Patient reports appropriate sleep/appetite. Appears less guarded. Patient is more verbal. He denies SI/HI's, A/VH's, delusions, withdrawal symptoms, and craving. He reports medication compliance. Denies side effects to any medication. Mental Status Exam - Vital signs Last Vital Signs Temp 99.0 F 04/11/18 12:31 Pulse 84 04/11/18 12:31 Resp 16 04/11/18 12:31 BP 130/65 04/11/18 12:31 Pulse Ox 99 04/11/18 12:31 - Exam Narrative exam: Mental Status Exam Appearance: calm, cooperative Behavior: regular eye contact Speech: regular rate and tone Mood: "I'm okay" Affect: congruent to mood Thought Process: logical Thought Content: denies SI/HI's, AVH's, delusions Motor Activity: lying in bed Cognition: A/O x3 Insight: fair Judgment: appropriate Assessment and Plan Impression: Alcohol Use DO. Unspecified Anxiety DO. Today the patient is calm and cooperative during the assessment.Denies SI/HI's. A/VH's, delusions, withdrawal symptoms, and cravings. Recommendation/Plan: 1. Continue Zoloft 25 mg PO daily for anxiety and Buspar 7.5 mg Po BID for anxiety. Discussed possible suicidality/medication induced mikie with the patient reference Zoloft. Discussed the importance to abstain from alcohol consumption (etoh). Disposition: The patient would like 24 hours to determined if he would want to volunteer for the partial hospitalization program at [facility] once medically clear. Patient still hasn't made a decision. Strongly encouraged to participate in PHP/program. Will staff with Dr. Tony Fulton.
[2018-04-12] MEDS: D5NS 1,000 ML IV SCH ×2 (05:08→13:42)
[2018-04-12 06:15] LABS: Hemoglobin 11.5 gm/dl (11.8-15.2); Mean Corpuscular HGB Conc 34 % (32-34); Mean Corpuscular Hemoglobin 36 pg (28-32); Mean Corpuscular Volume 108 fl (84-94); Red Blood Count 3.15 M/mm3 (3.65-5.03); Red Cell Distribution Width 15.3 % (13.2-15.2)
[2018-04-12 06:17] LABS: Platelet Count 83 K/mm3 (140-440)
[2018-04-12 06:29] LABS: Alanine Aminotransferase 26 units/L (7-56); Albumin 2.3 g/dL (3.9-5); BUN/Creatinine Ratio 15; Blood Urea Nitrogen 6 mg/dL (9-20); Calcium 7.7 mg/dL (8.4-10.2); Hemolysis Index 7
[2018-04-12 07:14] LABS: Anisocytosis 1+; Band Neutrophils # (Manual) 0.2 K/mm3; Basophils % (Manual) 0 % (0.0-1.8); Eosinophils % (Manual) 0 % (0.0-4.3); Hypochromasia 1+; Total Cells Counted 100
[2018-04-12 07:15] LABS: Burr Cells Few; Platelet Estimate Consistent w Auto
[2018-04-12] MEDS: SODIUM CHLORIDE FLUSH SYRINGE 10 ML IV SCH ×2 (09:01→21:01)
[2018-04-12] MEDS: ZOLOFT PO SCH (09:01)
[2018-04-12] MEDS: BUSPAR PO SCH ×2 (09:01→20:59)
[2018-04-12] MEDS: K-DUR PO SCH (09:01)
--- NOTE | 2018-04-12 10:44 | Progress Note ---
Subjective - Reason for Consult Consult date: 04/12/18 Reason for consult: Psychiatry Follow-up - Chief Complaint Chief complaint: "Hello" 47 y.o. white male who presented to ER for ETOH. Today the patient is calm and cooperative during the assessment. He stated that he haven't decided if he want to volunteer for the PHP with [facility] or [place]. He stated that he has to work out his work schedule before he can make a decision. He is adamant that he does want help for his alcoholism. He denies anxiety, SI/HI's, and AVH's. He denies any side effects of his medications. Mental Status Exam - Vital signs Last Vital Signs Temp 98.8 F 04/12/18 09:52 Pulse 68 04/12/18 09:52 Resp 16 04/12/18 09:52 BP 106/61 04/12/18 09:52 Pulse Ox 96 04/12/18 09:52 - Exam Narrative exam: MSE: Appearance: calm, cooperative Behavior: regular eye contact Speech: regular rate and tone Mood: "okay" Affect: congruent to mood Thought Process: logical Thought Content: denies SI/HI's and AVH's Motor Activity: lying in bed Cognition: A/O x3 Insight: appropriate Judgment: appropriate Assessment and Plan Impression: Alcohol Use DO. Unspecified Anxiety DO. Today the patient is calm and cooperative during the assessment. Recommendation/Plan: Continue Zoloft 25 mg PO daily for anxiety and Buspar 7.5 mg Po BID for anxiety. Discussed possible suicidality/medication induced mikie with the patient reference Zoloft. Discussed the importance to abstain from alcohol consumption (etoh). Dispo: The patient would like another 24 hours to determined if he would want to volunteer for the partial hospitalization program at [facility] once medically clear. Will staff with Dr Kumari.
--- NOTE | 2018-04-12 13:17 | Progress Note ---
Assessment and Plan Assessment and plan: / Encephalopathy, likely from alcohol withdrawl Unremarkable CT head, cont neuro check, aspiration precautions, fall precautions, seizure precautions. Was placed on restraint as he was confused and unsteady gait consulted psych, will follow recommendation off RESTRAINT today / Alcohol withdrawal delirium Status post [place] protocol, stopped all Ativan As needed Librium by mouth only /Seborrheic dermatitis Started on kitoconazole cream daily /Right lower extremity Bruise/swelling/large ecchymosis - s/p LE CT scan showed no abscess or big hematoma - Continue supportive care, monitor H&H /Moderate malnutrition, continue nutrition boost / Rhabdomyolysis IVF resuscitation, supportive care, monitor CK level / DVT prophylaxis SCD to BLE while in bed. Disposition: Monitor off restraint, off CIWA protocol now, PT eval, follow psych recommendation History Interval history: Patient seen and examined medical records reviewed Patient feels slightly better no new complaints No Obvious alcohol withdrawal symptoms Alert awake oriented Vital signs noted Hospitalist Physical - Constitutional Vitals: Temp Pulse Resp BP Pulse Ox 98.7 F 74 16 123/71 98 04/12/18 12:32 04/12/18 12:32 04/12/18 12:32 04/12/18 12:32 04/12/18 12:32 General appearance: Present: no acute distress, well-nourished - EENT Eyes: Present: PERRL, EOM intact - Neck Neck: Present: supple, normal ROM - Respiratory Respiratory effort: normal Respiratory: bilateral: diminished, negative: rales, rhonchi, wheezing - Cardiovascular Rhythm: regular Heart Sounds: Present: S1 & S2 - Extremities Extremities: no ischemia, No edema - Abdominal General gastrointestinal: soft, non-tender, non-distended, normal bowel sounds - Integumentary Integumentary: Present: clear, warm - Psychiatric Psychiatric: appropriate mood/affect, cooperative - Neurologic Neurologic: CNII-XII intact, moves all extremities Results - Labs CBC & Chem 7: 04/12/18 05:36 04/12/18 05:36 Labs: Laboratory Last Values WBC 4.1 K/mm3 (4.5-11.0) L 04/12/18 05:36 RBC 3.15 M/mm3 (3.65-5.03) L 04/12/18 05:36 Hgb 11.5 gm/dl (11.8-15.2) L 04/12/18 05:36 Hct 34.0 % (35.5-45.6) L 04/12/18 05:36 MCV 108 fl (84-94) H 04/12/18 05:36 MCH 36 pg (28-32) H 04/12/18 05:36 MCHC 34 % (32-34) 04/12/18 05:36 RDW 15.3 % (13.2-15.2) H 04/12/18 05:36 Plt Count 83 K/mm3 (140-440) L 04/12/18 05:36 Travis % (Auto) Drying Machine Operator 04/12/18 05:36 Add Manual Diff Complete 04/12/18 05:36 Total Counted 100 04/12/18 05:36 Seg Neuts % (Manual) 46.0 % (40.0-70.0) 04/12/18 05:36 Band Neutrophils % 4.0 % 04/12/18 05:36 Lymphocytes % (Manual) 30.0 % (13.4-35.0) 04/12/18 05:36 Reactive Lymphs % (Man) 0 % 04/12/18 05:36 Monocytes % (Manual) 20.0 % (0.0-7.3) H 04/12/18 05:36 Eosinophils % (Manual) 0 % (0.0-4.3) 04/12/18 05:36 Basophils % (Manual) 0 % (0.0-1.8) 04/12/18 05:36 Metamyelocytes % 0 % 04/12/18 05:36 Myelocytes % 0 % 04/12/18 05:36 Promyelocytes % 0 % 04/12/18 05:36 Blast Cells % 0 % 04/12/18 05:36 Nucleated RBC % Not Reportable 04/12/18 05:36 Seg Neutrophils # Man 1.9 K/mm3 (1.8-7.7) 04/12/18 05:36 Band Neutrophils # 0.2 K/mm3 04/12/18 05:36 Lymphocytes # (Manual) 1.2 K/mm3 (1.2-5.4) 04/12/18 05:36 Abs React Lymphs (Man) 0.0 K/mm3 04/12/18 05:36 Monocytes # (Manual) 0.8 K/mm3 (0.0-0.8) 04/12/18 05:36 Eosinophils # (Manual) 0.0 K/mm3 (0.0-0.4) 04/12/18 05:36 Basophils # (Manual) 0.0 K/mm3 (0.0-0.1) 04/12/18 05:36 Metamyelocytes # 0.0 K/mm3 04/12/18 05:36 Myelocytes # 0.0 K/mm3 04/12/18 05:36 Promyelocytes # 0.0 K/mm3 04/12/18 05:36 Blast Cells # 0.0 K/mm3 04/12/18 05:36 WBC Morphology Not Reportable 04/12/18 05:36 Hypersegmented Neuts Not Reportable 04/12/18 05:36 Hyposegmented Neuts Not Reportable 04/12/18 05:36 Hypogranular Neuts Not Reportable 04/12/18 05:36 Smudge Cells Not Reportable 04/12/18 05:36 Toxic Granulation Not Reportable 04/12/18 05:36 Toxic Vacuolation Not Reportable 04/12/18 05:36 Dohle Bodies Not Reportable 04/12/18 05:36 Pelger-Huet Anomaly Not Reportable 04/12/18 05:36 Jose Rods Not Reportable 04/12/18 05:36 Platelet Estimate Consistent w auto 04/12/18 05:36 Clumped Platelets Not Reportable 04/12/18 05:36 Plt Clumps, EDTA Not Reportable 04/12/18 05:36 Large Platelets Not Reportable 04/12/18 05:36 Giant Platelets Not Reportable 04/12/18 05:36 Platelet Satelliting Not Reportable 04/12/18 05:36 Plt Morphology Comment Not Reportable 04/12/18 05:36 RBC Morphology Not Reportable 04/12/18 05:36 Dimorphic RBCs Not Reportable 04/12/18 05:36 Polychromasia Rare 04/12/18 05:36 Hypochromasia 1+ 04/12/18 05:36 Poikilocytosis Not Reportable 04/12/18 05:36 Anisocytosis 1+ 04/12/18 05:36 Microcytosis Not Reportable 04/12/18 05:36 Macrocytosis Not Reportable 04/12/18 05:36 Spherocytes Not Reportable 04/12/18 05:36 Pappenheimer Bodies Not Reportable 04/12/18 05:36 Sickle Cells Not Reportable 04/12/18 05:36 Target Cells Not Reportable 04/12/18 05:36 Tear Drop Cells Not Reportable 04/12/18 05:36 Ovalocytes Not Reportable 04/12/18 05:36 Helmet Cells Not Reportable 04/12/18 05:36 Watts-[place] Bodies Not Reportable 04/12/18 05:36 [place] Rings Not Reportable 04/12/18 05:36 [place] Cells Few 04/12/18 05:36 Bite Cells Not Reportable 04/12/18 05:36 Crenated Cell Not Reportable 04/12/18 05:36 Elliptocytes Not Reportable 04/12/18 05:36 Acanthocytes (Spur) Not Reportable 04/12/18 05:36 Rouleaux Not Reportable 04/12/18 05:36 Hemoglobin C Crystals Not Reportable 04/12/18 05:36 Schistocytes Not Reportable 04/12/18 05:36 Malaria parasites Not Reportable 04/12/18 05:36 Kush Bodies Not Reportable 04/12/18 05:36 Hem Pathologist Commnt No 04/12/18 05:36 PT 20.2 Sec. (12.2-14.9) H 04/02/18 11:05 INR 1.68 (0.87-1.13) H 04/02/18 11:05 APTT 36.7 Sec. (24.2-36.6) H 04/02/18 11:05 Sodium 131 mmol/L (137-145) L 04/12/18 05:36 Potassium 4.3 mmol/L (3.6-5.0) 04/12/18 05:36 Chloride 98.1 mmol/L (98-107) 04/12/18 05:36 Carbon Dioxide 24 mmol/L (22-30) 04/12/18 05:36 Anion Gap 13 mmol/L 04/12/18 05:36 BUN 6 mg/dL (9-20) L 04/12/18 05:36 Creatinine 0.4 mg/dL (0.8-1.5) L 04/12/18 05:36 Estimated GFR > 60 ml/min 04/12/18 05:36 BUN/Creatinine Ratio 15 % 04/12/18 05:36 Glucose 79 mg/dL (75-100) 04/12/18 05:36 POC Glucose 78 (70-105) 04/12/18 06:17 Lactic Acid 1.80 mmol/L (0.7-2.0) 04/02/18 17:20 Calcium 7.7 mg/dL (8.4-10.2) L 04/12/18 05:36 Magnesium 1.40 mg/dL (1.7-2.3) L 04/02/18 11:05 Total Bilirubin 5.90 mg/dL (0.1-1.2) H 04/12/18 05:36 Direct Bilirubin 2.4 mg/dL (0-0.2) H 04/06/18 05:38 Indirect Bilirubin 3.7 mg/dL 04/06/18 05:38 AST 64 units/L (5-40) H 04/12/18 05:36 ALT 26 units/L (7-56) 04/12/18 05:36 Alkaline Phosphatase 94 units/L (35-129) 04/12/18 05:36 Ammonia 41.0 umol/L (25-60) 04/02/18 11:05 Total Creatine Kinase 435 units/L (55-170) H 04/07/18 19:33 Total Protein 5.6 g/dL (6.3-8.2) L 04/12/18 05:36 Albumin 2.3 g/dL (3.9-5) L 04/12/18 05:36 Albumin/Globulin Ratio 0.7 % 04/12/18 05:36 Urine Color Yellow (Yellow) 04/02/18 19:31 Urine Turbidity Clear (Clear) 04/02/18 19:31 Urine pH 6.0 (5.0-7.0) 04/02/18 19:31 Ur Specific [place] 1.004 (1.003-1.030) 04/02/18 19:31 Urine Protein <15 mg/dl mg/dL (Negative) 04/02/18 19:31 Urine Glucose (UA) Neg mg/dL (Negative) 04/02/18 19:31 Urine Ketones Neg mg/dL (Negative) 04/02/18 19:31 Urine Blood Neg (Negative) 04/02/18 19:31 Urine Nitrite Neg (Negative) 04/02/18 19:31 Urine Bilirubin Neg (Negative) 04/02/18 19:31 Urine Urobilinogen 4.0 mg/dL (<2.0) 04/02/18 19:31 Ur Leukocyte Esterase Neg (Negative) 04/02/18 19:31 Urine WBC (Auto) 1.0 /HPF (0.0-6.0) 04/02/18 19:31 Urine RBC (Auto) 1.0 /HPF (0.0-6.0) 04/02/18 19:31 Salicylates < 0.3 mg/dL (2.8-20.0) L 04/02/18 11:05 Acetaminophen < 5.0 ug/mL (10.0-30.0) L 04/02/18 11:05 Plasma/Serum Alcohol < 0.01 % (0-0.07) 04/02/18 11:05
[2018-04-12 23:58] LABS: ANA Screen, IFA Negative (Negative)
[2018-04-13 06:14] LABS: Hematocrit 33.8 % (35.5-45.6); Hemoglobin 11.4 gm/dl (11.8-15.2); Mean Corpuscular HGB Conc 34 % (32-34); Mean Corpuscular Hemoglobin 37 pg (28-32); Mean Corpuscular Volume 109 fl (84-94); Platelet Count 83 K/mm3 (140-440); Red Blood Count 3.12 M/mm3 (3.65-5.03); Red Cell Distribution Width 15.4 % (13.2-15.2)
[2018-04-13] MEDS: D5NS 1,000 ML IV SCH ×2 (06:18→18:54)
[2018-04-13 06:36] LABS: Alanine Aminotransferase 23 units/L (7-56); Albumin 2.1 g/dL (3.9-5); BUN/Creatinine Ratio 16; Blood Urea Nitrogen 8 mg/dL (9-20); Calcium 7.7 mg/dL (8.4-10.2); Hemolysis Index 16
[2018-04-13 07:23] LABS: Basophils % (Manual) 0 % (0.0-1.8); Total Cells Counted 100
[2018-04-13 07:24] LABS: Anisocytosis 1+; Hypochromasia 1+; Platelet Estimate Consistent w Auto
[2018-04-13] MEDS: BUSPAR PO SCH ×2 (10:02→21:30)
[2018-04-13] MEDS: K-DUR PO SCH (10:03)
[2018-04-13] MEDS: SODIUM CHLORIDE FLUSH SYRINGE 10 ML IV SCH (10:03)
[2018-04-13] MEDS: ZOLOFT PO SCH (10:03)
--- NOTE | 2018-04-13 13:30 | Progress Note ---
Subjective - Reason for Consult Consult date: 04/13/18 Reason for consult: Psychiatry Follow-up - Chief Complaint Chief complaint: "I'm well" 47 y.o. white male who presented to ER for ETOH. Today the patient is calm and cooperative during the assessment. He stated that he does not have a need to drink alcohol (etoh) anymore. He is aware of the medical implications that can occur if he continue to consume alcohol (etoh). He stated that he will continue to see his PCP who manage his anxiety. He denies SI/HI's and AVH's. He denies any side effects of his medications. Mental Status Exam - Vital signs Last Vital Signs Temp 98.2 F 04/12/18 23:39 Pulse 80 04/13/18 10:00 Resp 20 04/13/18 10:00 BP 122/67 04/12/18 23:39 Pulse Ox 97 04/12/18 23:39 - Exam Narrative exam: MSE: Appearance: calm, cooperative Behavior: regular eye contact Speech: regular rate and tone Mood: "okay" Affect: congruent to mood Thought Process: logical Thought Content: denies SI/HI's and AVH's Motor Activity: lying in bed Cognition: A/O x3 Insight: appropriate Judgment: appropriate Assessment and Plan Impression: Alcohol Use DO. Unspecified Anxiety DO. Today the patient is calm and cooperative during the assessment. Recommendation/Plan: Continue Zoloft 25 mg PO daily for anxiety and Buspar 7.5 mg Po BID for anxiety. Discussed possible suicidality/medication induced mikie with the patient reference Zoloft. Discussed the importance to abstain from alcohol consumption (etoh). Dispo: The patient can follow up with his PCP who manage his anxiety. Per the patient, he refused rehab services for alcoholism. Psy sign off. Staffed with Dr Kumari.
--- NOTE | 2018-04-13 16:25 | Discharge Summary ---
Providers - Providers Date of Admission: 04/02/18 13:39 Date of discharge: 04/13/18 Attending physician: ORQUIDEA WELSH 04/07/18 17:28 Consult to Mental Health [CONS] Routine Reason For Exam: delirium Place consult to:: mental health Notified:: yes Phone number called:: [phone] If yes, spoke with:: Nereida Time called:: 17:37 04/09/18 15:36 Physical Therapy Evaluation and Treat [CONS] Routine Comment: Reason For Exam: placement Primary care physician: BOOKING CLERK Hospitalization Condition: Fair Disposition: DC/[place]-06 HOME UNDER HOME [facility] Time spent for discharge: 32 min Core Measure Documentation - Palliative Care Palliative Care/ Comfort Measures: Not Applicable - Core Measures Any of the following diagnoses?: none Exam - Constitutional Vitals: Temp Pulse Resp BP Pulse Ox 98.2 F 80 20 122/67 97 04/12/18 23:39 04/13/18 10:00 04/13/18 10:00 04/12/18 23:39 04/12/18 23:39 General appearance: Present: no acute distress, well-nourished - EENT Eyes: Present: PERRL, EOM intact - Neck Neck: Present: supple, normal ROM - Respiratory Respiratory effort: normal Respiratory: bilateral: diminished, negative: rales, rhonchi, wheezing - Cardiovascular Rhythm: regular Heart Sounds: Present: S1 & S2 - Extremities Extremities: no ischemia, No edema - Abdominal General gastrointestinal: Present: soft, non-tender, non-distended, normal bowel sounds - Integumentary Integumentary: Present: clear, warm - Musculoskeletal Musculoskeletal: strength equal bilaterally, generalized weakness - Psychiatric Psychiatric: appropriate mood/affect, cooperative - Neurologic Neurologic: moves all extremities Plan Activity: advance as tolerated, fall precautions Diet: regular Special Instructions: physical therapy Follow up with: SARAH ROMAN MD [Primary Care Provider] - 3-5 Days ABRAN HANEY MD [Staff Physician] - 7 Days Prescriptions: busPIRone [Buspar] 7.5 mg PO BID #30 tablet Sertraline [Zoloft] 25 mg PO QDAY #15 tablet
--- NOTE | 2018-04-13 18:42 | Progress Note ---
Assessment and Plan Assessment and plan: --Encephalopathy, likely from alcohol withdrawl present on admission Resolved, patient is alert awake oriented 3 No alcohol withdrawal symptoms, physical therapy and latest tolerated Patient refused detox psych cleared for discharge, --Alcohol withdrawal delirium; resolved Continue current management, ambulate as tolerated --Seborrheic dermatitis Started on kitoconazole cream daily --Moderate malnutrition, continue nutrition boost --Rhabdomyolysis; improved Increase oral fluids, check CK --DVT prophylaxis SCD to BLE while in bed. Patient is medically stable for discharge, with home health and home PT Patient has multiple social issues, DC planning. Case management History Interval history: Patient seen and examined medical records reviewed Initially discharged, however case management report That he has multiple social issues Unable to place or set up home health Patient feels better no new complaints Hospitalist Physical - Constitutional Vitals: Temp Pulse Resp BP Pulse Ox 98.2 F 80 20 122/67 97 04/12/18 23:39 04/13/18 10:00 04/13/18 10:00 04/12/18 23:39 04/12/18 23:39 General appearance: Present: no acute distress, well-nourished - EENT Eyes: Present: PERRL, EOM intact - Neck Neck: Present: supple, normal ROM - Respiratory Respiratory effort: normal Respiratory: bilateral: diminished, negative: rales, rhonchi, wheezing - Cardiovascular Rhythm: regular Heart Sounds: Present: S1 & S2 - Extremities Extremities: no ischemia, No edema - Abdominal General gastrointestinal: soft, non-tender, non-distended, normal bowel sounds - Integumentary Integumentary: Present: clear, warm - Psychiatric Psychiatric: appropriate mood/affect, cooperative - Neurologic Neurologic: moves all extremities Results - Labs CBC & Chem 7: 04/13/18 05:16 04/13/18 05:16 Labs: Laboratory Last Values WBC 4.2 K/mm3 (4.5-11.0) L 04/13/18 05:16 RBC 3.12 M/mm3 (3.65-5.03) L 04/13/18 05:16 Hgb 11.4 gm/dl (11.8-15.2) L 04/13/18 05:16 Hct 33.8 % (35.5-45.6) L 04/13/18 05:16 MCV 109 fl (84-94) H 04/13/18 05:16 MCH 37 pg (28-32) H 04/13/18 05:16 MCHC 34 % (32-34) 04/13/18 05:16 RDW 15.4 % (13.2-15.2) H 04/13/18 05:16 Plt Count 83 K/mm3 (140-440) L 04/13/18 05:16 [place] % (Auto) Bulk Materials Handling Plant Operator 04/13/18 05:16 Add Manual Diff Complete 04/13/18 05:16 Total Counted 100 04/13/18 05:16 Seg Neuts % (Manual) 74.0 % (40.0-70.0) H 04/13/18 05:16 Band Neutrophils % 1.0 % 04/13/18 05:16 Lymphocytes % (Manual) 15.0 % (13.4-35.0) 04/13/18 05:16 Reactive Lymphs % (Man) 0 % 04/13/18 05:16 Monocytes % (Manual) 6.0 % (0.0-7.3) 04/13/18 05:16 Eosinophils % (Manual) 3.0 % (0.0-4.3) 04/13/18 05:16 Basophils % (Manual) 0 % (0.0-1.8) 04/13/18 05:16 Metamyelocytes % 1.0 % 04/13/18 05:16 Myelocytes % 0 % 04/13/18 05:16 Promyelocytes % 0 % 04/13/18 05:16 Blast Cells % 0 % 04/13/18 05:16 Nucleated RBC % Not Reportable 04/13/18 05:16 Seg Neutrophils # Man 3.1 K/mm3 (1.8-7.7) 04/13/18 05:16 Band Neutrophils # 0.0 K/mm3 04/13/18 05:16 Lymphocytes # (Manual) 0.6 K/mm3 (1.2-5.4) L 04/13/18 05:16 Abs React Lymphs (Man) 0.0 K/mm3 04/13/18 05:16 Monocytes # (Manual) 0.3 K/mm3 (0.0-0.8) 04/13/18 05:16 Eosinophils # (Manual) 0.1 K/mm3 (0.0-0.4) 04/13/18 05:16 Basophils # (Manual) 0.0 K/mm3 (0.0-0.1) 04/13/18 05:16 Metamyelocytes # 0.0 K/mm3 04/13/18 05:16 Myelocytes # 0.0 K/mm3 04/13/18 05:16 Promyelocytes # 0.0 K/mm3 04/13/18 05:16 Blast Cells # 0.0 K/mm3 04/13/18 05:16 WBC Morphology Not Reportable 04/13/18 05:16 Hypersegmented Neuts Not Reportable 04/13/18 05:16 Hyposegmented Neuts Not Reportable 04/13/18 05:16 Hypogranular Neuts Not Reportable 04/13/18 05:16 Smudge Cells Not Reportable 04/13/18 05:16 Toxic Granulation Not Reportable 04/13/18 05:16 Toxic Vacuolation Not Reportable 04/13/18 05:16 Dohle Bodies Not Reportable 04/13/18 05:16 Pelger-Huet Anomaly Not Reportable 04/13/18 05:16 Jose Rods Not Reportable 04/13/18 05:16 Platelet Estimate Consistent w auto 04/13/18 05:16 Clumped Platelets Not Reportable 04/13/18 05:16 Plt Clumps, EDTA Not Reportable 04/13/18 05:16 Large Platelets Not Reportable 04/13/18 05:16 Giant Platelets Not Reportable 04/13/18 05:16 Platelet Satelliting Not Reportable 04/13/18 05:16 Plt Morphology Comment Not Reportable 04/13/18 05:16 RBC Morphology Not Reportable 04/13/18 05:16 Dimorphic RBCs Not Reportable 04/13/18 05:16 Polychromasia Rare 04/13/18 05:16 Hypochromasia 1+ 04/13/18 05:16 Poikilocytosis Not Reportable 04/13/18 05:16 Anisocytosis 1+ 04/13/18 05:16 Microcytosis Not Reportable 04/13/18 05:16 Macrocytosis Not Reportable 04/13/18 05:16 Spherocytes Not Reportable 04/13/18 05:16 Pappenheimer Bodies Not Reportable 04/13/18 05:16 Sickle Cells Not Reportable 04/13/18 05:16 Target Cells Not Reportable 04/13/18 05:16 Tear Drop Cells Not Reportable 04/13/18 05:16 Ovalocytes Not Reportable 04/13/18 05:16 Helmet Cells Not Reportable 04/13/18 05:16 Watts-Anton Bodies Not Reportable 04/13/18 05:16 [place] Rings Not Reportable 04/13/18 05:16 [place] Cells Not Reportable 04/13/18 05:16 Bite Cells Not Reportable 04/13/18 05:16 Crenated Cell Not Reportable 04/13/18 05:16 Elliptocytes Not Reportable 04/13/18 05:16 Acanthocytes (Spur) Not Reportable 04/13/18 05:16 Rouleaux Not Reportable 04/13/18 05:16 Hemoglobin C Crystals Not Reportable 04/13/18 05:16 Schistocytes Not Reportable 04/13/18 05:16 Malaria parasites Not Reportable 04/13/18 05:16 Kush Bodies Not Reportable 04/13/18 05:16 Hem Pathologist Commnt No 04/13/18 05:16 PT 20.2 Sec. (12.2-14.9) H 04/02/18 11:05 INR 1.68 (0.87-1.13) H 04/02/18 11:05 APTT 36.7 Sec. (24.2-36.6) H 04/02/18 11:05 Sodium 133 mmol/L (137-145) L 04/13/18 05:16 Potassium 4.2 mmol/L (3.6-5.0) 04/13/18 05:16 Chloride 99.5 mmol/L (98-107) 04/13/18 05:16 Carbon Dioxide 24 mmol/L (22-30) 04/13/18 05:16 Anion Gap 14 mmol/L 04/13/18 05:16 BUN 8 mg/dL (9-20) L 04/13/18 05:16 Creatinine 0.5 mg/dL (0.8-1.5) L 04/13/18 05:16 Estimated GFR > 60 ml/min 04/13/18 05:16 BUN/Creatinine Ratio 16 % 04/13/18 05:16 Glucose 98 mg/dL (75-100) 04/13/18 05:16 POC Glucose 91 (70-105) 04/13/18 12:45 Lactic Acid 1.80 mmol/L (0.7-2.0) 04/02/18 17:20 Calcium 7.7 mg/dL (8.4-10.2) L 04/13/18 05:16 Phosphorus 2.70 mg/dL (2.5-4.5) 04/13/18 05:16 Magnesium 1.70 mg/dL (1.7-2.3) 04/13/18 05:16 Total Bilirubin 4.70 mg/dL (0.1-1.2) H 04/13/18 05:16 Direct Bilirubin 2.4 mg/dL (0-0.2) H 04/06/18 05:38 Indirect Bilirubin 3.7 mg/dL 04/06/18 05:38 AST 63 units/L (5-40) H 04/13/18 05:16 ALT 23 units/L (7-56) 04/13/18 05:16 Alkaline Phosphatase 94 units/L (35-129) 04/13/18 05:16 Ammonia 41.0 umol/L (25-60) 04/02/18 11:05 Total Creatine Kinase 435 units/L (55-170) H 04/07/18 19:33 Total Protein 5.9 g/dL (6.3-8.2) L 04/13/18 05:16 Albumin 2.1 g/dL (3.9-5) L 04/13/18 05:16 Albumin/Globulin Ratio 0.6 % 04/13/18 05:16 Urine Color Yellow (Yellow) 04/02/18 19:31 Urine Turbidity Clear (Clear) 04/02/18 19:31 Urine pH 6.0 (5.0-7.0) 04/02/18 19:31 Ur Specific [place] 1.004 (1.003-1.030) 04/02/18 19:31 Urine Protein <15 mg/dl mg/dL (Negative) 04/02/18 19:31 Urine Glucose (UA) Neg mg/dL (Negative) 04/02/18 19:31 Urine Ketones Neg mg/dL (Negative) 04/02/18 19:31 Urine Blood Neg (Negative) 04/02/18 19:31 Urine Nitrite Neg (Negative) 04/02/18 19:31 Urine Bilirubin Neg (Negative) 04/02/18 19:31 Urine Urobilinogen 4.0 mg/dL (<2.0) 04/02/18 19:31 Ur Leukocyte Esterase Neg (Negative) 04/02/18 19:31 Urine WBC (Auto) 1.0 /HPF (0.0-6.0) 04/02/18 19:31 Urine RBC (Auto) 1.0 /HPF (0.0-6.0) 04/02/18 19:31 Salicylates < 0.3 mg/dL (2.8-20.0) L 04/02/18 11:05 Acetaminophen < 5.0 ug/mL (10.0-30.0) L 04/02/18 11:05 Plasma/Serum Alcohol < 0.01 % (0-0.07) 04/02/18 11:05 RAHEEM Screen Negative (Negative) 04/06/18 10:49 Double Strand DNA Ab <1 IU/mL (<=4) 04/06/18 10:49 Nutrition/Malnutrition Assess - Dietary Evaluation Nutrition/Malnutrition Findings: Nutrition Notes Start: 04/13/18 15:08 Freq: Status: Active Protocol: Document 04/13/18 15:08 RM (Rec: 04/13/18 15:10 RM [id number]) Nutrition Notes Need for Assessment generated from: LOS Initial or Follow up Brief Note Other Pertinent Diagnosis Alcohol withdrawal delirium Current Diet Regular w/Ensure Enlive [place] BID Labs/Tests Reviewed Medications Reviewed Height 5 ft 11 in Weight 68.4 kg Usual Body Weight 63.64 kg [place] Body Weight (lbs) 172.0 BMI 21.0 Subjective/Other Information Pt screened for LOS. Pt stated that his appetite is good and that he eats all of his meals. Stated UBW was 140 lbs 2 weeks ago. Burn Absent Trauma Absent Nutrition Intervention Revisit per MD consult or patient Sign Off request:
[2018-04-14] MEDS: K-DUR PO SCH (11:36)
[2018-04-14] MEDS: ZOLOFT PO SCH (11:36)
[2018-04-14] MEDS: BUSPAR PO SCH ×2 (11:36→21:21)
--- NOTE | 2018-04-14 14:35 | Progress Note ---
Assessment and Plan Assessment and plan: --Encephalopathy, likely from alcohol withdrawl present on admission Resolved, patient is alert awake oriented 3 No alcohol withdrawal symptoms, physical therapy and latest tolerated Patient refused detox psych cleared for discharge, --Alcohol withdrawal delirium; resolved Continue current management, ambulate as tolerated --Seborrheic dermatitis Started on kitoconazole cream daily --Moderate malnutrition, continue nutrition boost --Rhabdomyolysis; improved Increase oral fluids, check CK --DVT prophylaxis SCD to BLE while in bed. Patient is medically stable for discharge, with home health and home PT Patient has multiple social issues, DC planning. Case management History Interval history: Patient seen and examined medical records reviewed no new complaints Vitals stable Hospitalist Physical - Constitutional Vitals: Temp Pulse Resp BP Pulse Ox 98.3 F 73 16 129/68 96 04/14/18 05:32 04/14/18 05:32 04/14/18 05:32 04/14/18 05:32 04/14/18 05:32 General appearance: Present: no acute distress, well-nourished - EENT Eyes: Present: PERRL, EOM intact - Neck Neck: Present: supple, normal ROM - Respiratory Respiratory effort: normal Respiratory: bilateral: diminished, negative: rales, rhonchi, wheezing - Cardiovascular Rhythm: regular Heart Sounds: Present: S1 & S2 - Extremities Extremities: no ischemia, No edema - Abdominal General gastrointestinal: soft, non-tender, non-distended, normal bowel sounds - Integumentary Integumentary: Present: clear, warm - Psychiatric Psychiatric: appropriate mood/affect, cooperative - Neurologic Neurologic: moves all extremities Results - Labs CBC & Chem 7: 04/13/18 05:16 04/13/18 05:16 Labs: Laboratory Last Values WBC 4.2 K/mm3 (4.5-11.0) L 04/13/18 05:16 RBC 3.12 M/mm3 (3.65-5.03) L 04/13/18 05:16 Hgb 11.4 gm/dl (11.8-15.2) L 04/13/18 05:16 Hct 33.8 % (35.5-45.6) L 04/13/18 05:16 MCV 109 fl (84-94) H 04/13/18 05:16 MCH 37 pg (28-32) H 04/13/18 05:16 MCHC 34 % (32-34) 04/13/18 05:16 RDW 15.4 % (13.2-15.2) H 04/13/18 05:16 Plt Count 83 K/mm3 (140-440) L 04/13/18 05:16 [place] % (Auto) Plant Maintenance Mechanic 04/13/18 05:16 Add Manual Diff Complete 04/13/18 05:16 Total Counted 100 04/13/18 05:16 Seg Neuts % (Manual) 74.0 % (40.0-70.0) H 04/13/18 05:16 Band Neutrophils % 1.0 % 04/13/18 05:16 Lymphocytes % (Manual) 15.0 % (13.4-35.0) 04/13/18 05:16 Reactive Lymphs % (Man) 0 % 04/13/18 05:16 Monocytes % (Manual) 6.0 % (0.0-7.3) 04/13/18 05:16 Eosinophils % (Manual) 3.0 % (0.0-4.3) 04/13/18 05:16 Basophils % (Manual) 0 % (0.0-1.8) 04/13/18 05:16 Metamyelocytes % 1.0 % 04/13/18 05:16 Myelocytes % 0 % 04/13/18 05:16 Promyelocytes % 0 % 04/13/18 05:16 Blast Cells % 0 % 04/13/18 05:16 Nucleated RBC % Not Reportable 04/13/18 05:16 Seg Neutrophils # Man 3.1 K/mm3 (1.8-7.7) 04/13/18 05:16 Band Neutrophils # 0.0 K/mm3 04/13/18 05:16 Lymphocytes # (Manual) 0.6 K/mm3 (1.2-5.4) L 04/13/18 05:16 Abs React Lymphs (Man) 0.0 K/mm3 04/13/18 05:16 Monocytes # (Manual) 0.3 K/mm3 (0.0-0.8) 04/13/18 05:16 Eosinophils # (Manual) 0.1 K/mm3 (0.0-0.4) 04/13/18 05:16 Basophils # (Manual) 0.0 K/mm3 (0.0-0.1) 04/13/18 05:16 Metamyelocytes # 0.0 K/mm3 04/13/18 05:16 Myelocytes # 0.0 K/mm3 04/13/18 05:16 Promyelocytes # 0.0 K/mm3 04/13/18 05:16 Blast Cells # 0.0 K/mm3 04/13/18 05:16 WBC Morphology Not Reportable 04/13/18 05:16 Hypersegmented Neuts Not Reportable 04/13/18 05:16 Hyposegmented Neuts Not Reportable 04/13/18 05:16 Hypogranular Neuts Not Reportable 04/13/18 05:16 Smudge Cells Not Reportable 04/13/18 05:16 Toxic Granulation Not Reportable 04/13/18 05:16 Toxic Vacuolation Not Reportable 04/13/18 05:16 Dohle Bodies Not Reportable 04/13/18 05:16 Pelger-Huet Anomaly Not Reportable 04/13/18 05:16 Jose Rods Not Reportable 04/13/18 05:16 Platelet Estimate Consistent w auto 04/13/18 05:16 Clumped Platelets Not Reportable 04/13/18 05:16 Plt Clumps, EDTA Not Reportable 04/13/18 05:16 Large Platelets Not Reportable 04/13/18 05:16 Giant Platelets Not Reportable 04/13/18 05:16 Platelet Satelliting Not Reportable 04/13/18 05:16 Plt Morphology Comment Not Reportable 04/13/18 05:16 RBC Morphology Not Reportable 04/13/18 05:16 Dimorphic RBCs Not Reportable 04/13/18 05:16 Polychromasia Rare 04/13/18 05:16 Hypochromasia 1+ 04/13/18 05:16 Poikilocytosis Not Reportable 04/13/18 05:16 Anisocytosis 1+ 04/13/18 05:16 Microcytosis Not Reportable 04/13/18 05:16 Macrocytosis Not Reportable 04/13/18 05:16 Spherocytes Not Reportable 04/13/18 05:16 Pappenheimer Bodies Not Reportable 04/13/18 05:16 Sickle Cells Not Reportable 04/13/18 05:16 Target Cells Not Reportable 04/13/18 05:16 Tear Drop Cells Not Reportable 04/13/18 05:16 Ovalocytes Not Reportable 04/13/18 05:16 Helmet Cells Not Reportable 04/13/18 05:16 Watts-[place] Bodies Not Reportable 04/13/18 05:16 [place] Rings Not Reportable 04/13/18 05:16 [place] Cells Not Reportable 04/13/18 05:16 Bite Cells Not Reportable 04/13/18 05:16 Crenated Cell Not Reportable 04/13/18 05:16 Elliptocytes Not Reportable 04/13/18 05:16 Acanthocytes (Spur) Not Reportable 04/13/18 05:16 Rouleaux Not Reportable 04/13/18 05:16 Hemoglobin C Crystals Not Reportable 04/13/18 05:16 Schistocytes Not Reportable 04/13/18 05:16 Malaria parasites Not Reportable 04/13/18 05:16 Kush Bodies Not Reportable 04/13/18 05:16 Hem Pathologist Commnt No 04/13/18 05:16 PT 20.2 Sec. (12.2-14.9) H 04/02/18 11:05 INR 1.68 (0.87-1.13) H 04/02/18 11:05 APTT 36.7 Sec. (24.2-36.6) H 04/02/18 11:05 Sodium 133 mmol/L (137-145) L 04/13/18 05:16 Potassium 4.2 mmol/L (3.6-5.0) 04/13/18 05:16 Chloride 99.5 mmol/L (98-107) 04/13/18 05:16 Carbon Dioxide 24 mmol/L (22-30) 04/13/18 05:16 Anion Gap 14 mmol/L 04/13/18 05:16 BUN 8 mg/dL (9-20) L 04/13/18 05:16 Creatinine 0.5 mg/dL (0.8-1.5) L 04/13/18 05:16 Estimated GFR > 60 ml/min 04/13/18 05:16 BUN/Creatinine Ratio 16 % 04/13/18 05:16 Glucose 98 mg/dL (75-100) 04/13/18 05:16 POC Glucose 99 (70-105) 04/13/18 18:33 Lactic Acid 1.80 mmol/L (0.7-2.0) 04/02/18 17:20 Calcium 7.7 mg/dL (8.4-10.2) L 04/13/18 05:16 Phosphorus 2.70 mg/dL (2.5-4.5) 04/13/18 05:16 Magnesium 1.70 mg/dL (1.7-2.3) 04/13/18 05:16 Total Bilirubin 4.70 mg/dL (0.1-1.2) H 04/13/18 05:16 Direct Bilirubin 2.4 mg/dL (0-0.2) H 04/06/18 05:38 Indirect Bilirubin 3.7 mg/dL 04/06/18 05:38 AST 63 units/L (5-40) H 04/13/18 05:16 ALT 23 units/L (7-56) 04/13/18 05:16 Alkaline Phosphatase 94 units/L (35-129) 04/13/18 05:16 Ammonia 41.0 umol/L (25-60) 04/02/18 11:05 Total Creatine Kinase 435 units/L (55-170) H 04/07/18 19:33 Total Protein 5.9 g/dL (6.3-8.2) L 04/13/18 05:16 Albumin 2.1 g/dL (3.9-5) L 04/13/18 05:16 Albumin/Globulin Ratio 0.6 % 04/13/18 05:16 Urine Color Yellow (Yellow) 04/02/18 19:31 Urine Turbidity Clear (Clear) 04/02/18 19:31 Urine pH 6.0 (5.0-7.0) 04/02/18 19:31 Ur Specific [place] 1.004 (1.003-1.030) 04/02/18 19:31 Urine Protein <15 mg/dl mg/dL (Negative) 04/02/18 19:31 Urine Glucose (UA) Neg mg/dL (Negative) 04/02/18 19:31 Urine Ketones Neg mg/dL (Negative) 04/02/18 19:31 Urine Blood Neg (Negative) 04/02/18 19:31 Urine Nitrite Neg (Negative) 04/02/18 19:31 Urine Bilirubin Neg (Negative) 04/02/18 19:31 Urine Urobilinogen 4.0 mg/dL (<2.0) 04/02/18 19:31 Ur Leukocyte Esterase Neg (Negative) 04/02/18 19:31 Urine WBC (Auto) 1.0 /HPF (0.0-6.0) 04/02/18 19:31 Urine RBC (Auto) 1.0 /HPF (0.0-6.0) 04/02/18 19:31 Salicylates < 0.3 mg/dL (2.8-20.0) L 04/02/18 11:05 Acetaminophen < 5.0 ug/mL (10.0-30.0) L 04/02/18 11:05 Plasma/Serum Alcohol < 0.01 % (0-0.07) 04/02/18 11:05 RAHEEM Screen Negative (Negative) 04/06/18 10:49 Double Strand DNA Ab <1 IU/mL (<=4) 04/06/18 10:49 Nutrition/Malnutrition Assess - Dietary Evaluation Nutrition/Malnutrition Findings: Nutrition Notes Start: 04/13/18 15:08 Freq: Status: Active Protocol: Document 04/13/18 15:08 RM (Rec: 04/13/18 15:10 RM [email or web address]) Nutrition Notes Need for Assessment generated from: LOS Initial or Follow up Brief Note Other Pertinent Diagnosis Alcohol withdrawal delirium Current Diet Regular w/Ensure Enlive [place] BID Labs/Tests Reviewed Medications Reviewed Height 5 ft 11 in Weight 68.4 kg Usual Body Weight 63.64 kg [place] Body Weight (lbs) 172.0 BMI 21.0 Subjective/Other Information Pt screened for LOS. Pt stated that his appetite is good and that he eats all of his meals. Stated UBW was 140 lbs 2 weeks ago. Burn Absent Trauma Absent Nutrition Intervention Revisit per MD consult or patient Sign Off request:
[2018-04-14] MEDS ORDERED: MILK OF MAGNESIA PO PRN (16:41)
[2018-04-15] MEDS: K-DUR PO SCH (09:52)
[2018-04-15] MEDS: BUSPAR PO SCH ×2 (09:53→22:42)
[2018-04-15] MEDS: ZOLOFT PO SCH (09:53)
--- NOTE | 2018-04-15 12:19 | Progress Note ---
Assessment and Plan Assessment and plan: --Encephalopathy, likely from alcohol withdrawl present on admission Resolved, patient is alert awake oriented 3 No alcohol withdrawal symptoms, physical therapy and latest tolerated Patient refused detox psych cleared for discharge, --Alcohol withdrawal delirium; resolved, ambulate as tolerated --Seborrheic dermatitis; improved on kitoconazole cream daily --Moderate malnutrition, continue nutrition boost --Rhabdomyolysis; improved --DVT prophylaxis SCD to BLE while in bed. Patient is medically stable for discharge, DC planning per Case management History Interval history: Clinical history no change Comfortable vitals stable Medically stable for discharge Hospitalist Physical - Constitutional Vitals: Temp Pulse Resp BP Pulse Ox 97.7 F 71 18 140/82 98 04/15/18 05:41 04/15/18 05:41 04/15/18 05:41 04/15/18 05:41 04/15/18 05:41 General appearance: Present: no acute distress, well-nourished - EENT Eyes: Present: PERRL, EOM intact - Neck Neck: Present: supple, normal ROM - Respiratory Respiratory effort: normal Respiratory: bilateral: diminished, negative: rales, rhonchi, wheezing - Cardiovascular Rhythm: regular Heart Sounds: Present: S1 & S2 - Extremities Extremities: no ischemia, No edema - Abdominal General gastrointestinal: soft, non-tender, non-distended - Integumentary Integumentary: Present: clear, warm - Psychiatric Psychiatric: appropriate mood/affect, cooperative - Neurologic Neurologic: CNII-XII intact, moves all extremities Results - Labs CBC & Chem 7: 04/13/18 05:16 04/13/18 05:16 Labs: Laboratory Last Values WBC 4.2 K/mm3 (4.5-11.0) L 04/13/18 05:16 RBC 3.12 M/mm3 (3.65-5.03) L 04/13/18 05:16 Hgb 11.4 gm/dl (11.8-15.2) L 04/13/18 05:16 Hct 33.8 % (35.5-45.6) L 04/13/18 05:16 MCV 109 fl (84-94) H 04/13/18 05:16 MCH 37 pg (28-32) H 04/13/18 05:16 MCHC 34 % (32-34) 04/13/18 05:16 RDW 15.4 % (13.2-15.2) H 04/13/18 05:16 Plt Count 83 K/mm3 (140-440) L 04/13/18 05:16 [place] % (Auto) Veterinary Practice Manager 04/13/18 05:16 Add Manual Diff Complete 04/13/18 05:16 Total Counted 100 04/13/18 05:16 Seg Neuts % (Manual) 74.0 % (40.0-70.0) H 04/13/18 05:16 Band Neutrophils % 1.0 % 04/13/18 05:16 Lymphocytes % (Manual) 15.0 % (13.4-35.0) 04/13/18 05:16 Reactive Lymphs % (Man) 0 % 04/13/18 05:16 Monocytes % (Manual) 6.0 % (0.0-7.3) 04/13/18 05:16 Eosinophils % (Manual) 3.0 % (0.0-4.3) 04/13/18 05:16 Basophils % (Manual) 0 % (0.0-1.8) 04/13/18 05:16 Metamyelocytes % 1.0 % 04/13/18 05:16 Myelocytes % 0 % 04/13/18 05:16 Promyelocytes % 0 % 04/13/18 05:16 Blast Cells % 0 % 04/13/18 05:16 Nucleated RBC % Not Reportable 04/13/18 05:16 Seg Neutrophils # Man 3.1 K/mm3 (1.8-7.7) 04/13/18 05:16 Band Neutrophils # 0.0 K/mm3 04/13/18 05:16 Lymphocytes # (Manual) 0.6 K/mm3 (1.2-5.4) L 04/13/18 05:16 Abs React Lymphs (Man) 0.0 K/mm3 04/13/18 05:16 Monocytes # (Manual) 0.3 K/mm3 (0.0-0.8) 04/13/18 05:16 Eosinophils # (Manual) 0.1 K/mm3 (0.0-0.4) 04/13/18 05:16 Basophils # (Manual) 0.0 K/mm3 (0.0-0.1) 04/13/18 05:16 Metamyelocytes # 0.0 K/mm3 04/13/18 05:16 Myelocytes # 0.0 K/mm3 04/13/18 05:16 Promyelocytes # 0.0 K/mm3 04/13/18 05:16 Blast Cells # 0.0 K/mm3 04/13/18 05:16 WBC Morphology Not Reportable 04/13/18 05:16 Hypersegmented Neuts Not Reportable 04/13/18 05:16 Hyposegmented Neuts Not Reportable 04/13/18 05:16 Hypogranular Neuts Not Reportable 04/13/18 05:16 Smudge Cells Not Reportable 04/13/18 05:16 Toxic Granulation Not Reportable 04/13/18 05:16 Toxic Vacuolation Not Reportable 04/13/18 05:16 Dohle Bodies Not Reportable 04/13/18 05:16 Pelger-Huet Anomaly Not Reportable 04/13/18 05:16 Jose Rods Not Reportable 04/13/18 05:16 Platelet Estimate Consistent w auto 04/13/18 05:16 Clumped Platelets Not Reportable 04/13/18 05:16 Plt Clumps, EDTA Not Reportable 04/13/18 05:16 Large Platelets Not Reportable 04/13/18 05:16 Giant Platelets Not Reportable 04/13/18 05:16 Platelet Satelliting Not Reportable 04/13/18 05:16 Plt Morphology Comment Not Reportable 04/13/18 05:16 RBC Morphology Not Reportable 04/13/18 05:16 Dimorphic RBCs Not Reportable 04/13/18 05:16 Polychromasia Rare 04/13/18 05:16 Hypochromasia 1+ 04/13/18 05:16 Poikilocytosis Not Reportable 04/13/18 05:16 Anisocytosis 1+ 04/13/18 05:16 Microcytosis Not Reportable 04/13/18 05:16 Macrocytosis Not Reportable 04/13/18 05:16 Spherocytes Not Reportable 04/13/18 05:16 Pappenheimer Bodies Not Reportable 04/13/18 05:16 Sickle Cells Not Reportable 04/13/18 05:16 Target Cells Not Reportable 04/13/18 05:16 Tear Drop Cells Not Reportable 04/13/18 05:16 Ovalocytes Not Reportable 04/13/18 05:16 Helmet Cells Not Reportable 04/13/18 05:16 Watts-[place] Bodies Not Reportable 04/13/18 05:16 [employer] Rings Not Reportable 04/13/18 05:16 [place] Cells Not Reportable 04/13/18 05:16 Bite Cells Not Reportable 04/13/18 05:16 Crenated Cell Not Reportable 04/13/18 05:16 Elliptocytes Not Reportable 04/13/18 05:16 Acanthocytes (Spur) Not Reportable 04/13/18 05:16 Rouleaux Not Reportable 04/13/18 05:16 Hemoglobin C Crystals Not Reportable 04/13/18 05:16 Schistocytes Not Reportable 04/13/18 05:16 Malaria parasites Not Reportable 04/13/18 05:16 Kush Bodies Not Reportable 04/13/18 05:16 Hem Pathologist Commnt No 04/13/18 05:16 PT 20.2 Sec. (12.2-14.9) H 04/02/18 11:05 INR 1.68 (0.87-1.13) H 04/02/18 11:05 APTT 36.7 Sec. (24.2-36.6) H 04/02/18 11:05 Sodium 133 mmol/L (137-145) L 04/13/18 05:16 Potassium 4.2 mmol/L (3.6-5.0) 04/13/18 05:16 Chloride 99.5 mmol/L (98-107) 04/13/18 05:16 Carbon Dioxide 24 mmol/L (22-30) 04/13/18 05:16 Anion Gap 14 mmol/L 04/13/18 05:16 BUN 8 mg/dL (9-20) L 04/13/18 05:16 Creatinine 0.5 mg/dL (0.8-1.5) L 04/13/18 05:16 Estimated GFR > 60 ml/min 04/13/18 05:16 BUN/Creatinine Ratio 16 % 04/13/18 05:16 Glucose 98 mg/dL (75-100) 04/13/18 05:16 POC Glucose 99 (70-105) 04/13/18 18:33 Lactic Acid 1.80 mmol/L (0.7-2.0) 04/02/18 17:20 Calcium 7.7 mg/dL (8.4-10.2) L 04/13/18 05:16 Phosphorus 2.70 mg/dL (2.5-4.5) 04/13/18 05:16 Magnesium 1.70 mg/dL (1.7-2.3) 04/13/18 05:16 Total Bilirubin 4.70 mg/dL (0.1-1.2) H 04/13/18 05:16 Direct Bilirubin 2.4 mg/dL (0-0.2) H 04/06/18 05:38 Indirect Bilirubin 3.7 mg/dL 04/06/18 05:38 AST 63 units/L (5-40) H 04/13/18 05:16 ALT 23 units/L (7-56) 04/13/18 05:16 Alkaline Phosphatase 94 units/L (35-129) 04/13/18 05:16 Ammonia 41.0 umol/L (25-60) 04/02/18 11:05 Total Creatine Kinase 435 units/L (55-170) H 04/07/18 19:33 Total Protein 5.9 g/dL (6.3-8.2) L 04/13/18 05:16 Albumin 2.1 g/dL (3.9-5) L 04/13/18 05:16 Albumin/Globulin Ratio 0.6 % 04/13/18 05:16 Urine Color Yellow (Yellow) 04/02/18 19:31 Urine Turbidity Clear (Clear) 04/02/18 19:31 Urine pH 6.0 (5.0-7.0) 04/02/18 19:31 Ur Specific [place] 1.004 (1.003-1.030) 04/02/18 19:31 Urine Protein <15 mg/dl mg/dL (Negative) 04/02/18 19:31 Urine Glucose (UA) Neg mg/dL (Negative) 04/02/18 19:31 Urine Ketones Neg mg/dL (Negative) 04/02/18 19:31 Urine Blood Neg (Negative) 04/02/18 19:31 Urine Nitrite Neg (Negative) 04/02/18 19:31 Urine Bilirubin Neg (Negative) 04/02/18 19:31 Urine Urobilinogen 4.0 mg/dL (<2.0) 04/02/18 19:31 Ur Leukocyte Esterase Neg (Negative) 04/02/18 19:31 Urine WBC (Auto) 1.0 /HPF (0.0-6.0) 04/02/18 19:31 Urine RBC (Auto) 1.0 /HPF (0.0-6.0) 04/02/18 19:31 Salicylates < 0.3 mg/dL (2.8-20.0) L 04/02/18 11:05 Acetaminophen < 5.0 ug/mL (10.0-30.0) L 04/02/18 11:05 Plasma/Serum Alcohol < 0.01 % (0-0.07) 04/02/18 11:05 RAHEEM Screen Negative (Negative) 04/06/18 10:49 Double Strand DNA Ab <1 IU/mL (<=4) 04/06/18 10:49 Nutrition/Malnutrition Assess - Dietary Evaluation Nutrition/Malnutrition Findings: Nutrition Notes Start: 04/13/18 15:08 Freq: Status: Active Protocol: Document 04/13/18 15:08 RM (Rec: 04/13/18 15:10 RM [id number]) Nutrition Notes Need for Assessment generated from: LOS Initial or Follow up Brief Note Other Pertinent Diagnosis Alcohol withdrawal delirium Current Diet Regular w/Ensure Enlive [place] BID Labs/Tests Reviewed Medications Reviewed Height 5 ft 11 in Weight 68.4 kg Usual Body Weight 63.64 kg [place] Body Weight (lbs) 172.0 BMI 21.0 Subjective/Other Information Pt screened for LOS. Pt stated that his appetite is good and that he eats all of his meals. Stated UBW was 140 lbs 2 weeks ago. Burn Absent Trauma Absent Nutrition Intervention Revisit per MD consult or patient Sign Off request:
[2018-04-16] MEDS: BUSPAR PO SCH (10:14)
[2018-04-16] MEDS: K-DUR PO SCH (10:14)
[2018-04-16] MEDS: ZOLOFT PO SCH (10:42)
[2018-04-16 12:48] VITALS: BP 105/59
--- NOTE | 2018-04-16 14:44 | Discharge Summary ---
Providers - Providers Date of Admission: 04/02/18 13:39 Date of discharge: 04/16/18 Attending physician: ORQUIDEA WELSH 04/07/18 17:28 Consult to Mental Health [CONS] Routine Reason For Exam: delirium Place consult to:: mental health Notified:: yes Phone number called:: [phone] If yes, spoke with:: Nereida Time called:: 17:37 04/09/18 15:36 Physical Therapy Evaluation and Treat [CONS] Routine Comment: Reason For Exam: placement Primary care physician: PLANT NURSERY WORKER Hospitalization Condition: Fair Disposition: DC-01 TO HOME OR SELFCARE Time spent for discharge: 32 min Core Measure Documentation - Palliative Care Palliative Care/ Comfort Measures: Not Applicable - Core Measures Any of the following diagnoses?: none Exam - Constitutional Vitals: Temp Pulse Resp BP Pulse Ox 97.9 F 66 16 105/59 97 04/16/18 11:50 04/16/18 11:50 04/16/18 11:50 04/16/18 11:50 04/16/18 11:50 Plan Activity: advance as tolerated, fall precautions Diet: regular Additional Instructions: quit alcohol intake. Advised to go for alcohol rehabilitation. Case Management to assist with discharge Follow up with: ABRAN HANEY MD [Staff Physician] - 7 Days PRIMARY CAREMD [Primary Care Provider] - 3-5 Days Prescriptions: busPIRone [Buspar] 7.5 mg PO BID #30 tablet Folic Acid [Folvite] 1 mg PO QDAY #30 tablet Sertraline [Zoloft] 25 mg PO QDAY #15 tablet Thiamine [Vitamin B-1] 100 mg PO QDAY #30 tablet
== END 2018-04-16 17:30 | disposition home or self-care (01) | DRG 897 ==
LOC: ED 10:42 → 4A 13:39 → 3A 04-13 20:46
PROVIDERS: ADMIT Internal Medicine; ATTEND Internal Medicine
DX: F10.231 Alcohol dependence with withdrawal delirium (principal); M62.82 Rhabdomyolysis; E44.0 Moderate protein-calorie malnutrition; G93.40 Encephalopathy, unspecified; F10.20 Alcohol dependence, uncomplicated; Z68.21 Body mass index [BMI] 21.0-21.9, adult; E87.6 Hypokalemia; E83.42 Hypomagnesemia; L40.9 Psoriasis, unspecified; L21.9 Seborrheic dermatitis, unspecified; S80.11XA Contusion of right lower leg, initial encounter; X58.XXXA Exposure to other specified factors, initial encounter; Y93.89 Activity, other specified; Y92.89 Other specified places as the place of occurrence of the external cause; Y99.8 Other external cause status; R58 Hemorrhage, not elsewhere classified; F41.9 Anxiety disorder, unspecified
CPT/HCPCS: 36415; 70450; 71045; 80048; 80053; 80076; 80320; 81001; 82140; 82550; 82962; 83735; 84100; 84132; 85007; 85014; 85018; 85025; 85027; 85610; 85730; 86038; 86225; 93005; 93010; 96361; 96365; G0378; G0480; J2060; J3475; J3480; J7030; J7042

== ENCOUNTER 2018-08-16 23:01 | Inpatient (IN) | payer OTHER ==
[2018-08-16] MEDS ORDERED: D5W 1,000 ML IV SCH (23:45)
--- NOTE | 2018-08-16 23:45 | Emergency Department Report ---
ED Altered Mental Status HPI - General Chief Complaint: Altered Mental Status Stated Complaint: WEAKNESS Time Seen by Provider: 08/16/18 23:18 Source: EMS Mode of arrival: Stretcher Limitations: Altered Mental Status, Physical Limitation - History of Present Illness Initial Comments: Patient is 47 years old male with history of alcohol abuse. Patient brought to the emergency room from a nearby hotel for confusion. Patient with generalized jaundice, obvious ascites and difficulty in breathing. Patient is alert and moving all his extremities but confused and unable to obtain more history from him. The patient was admitted last year for alcohol intoxication the patient looks like he has chronic liver problem with possible encephalopathy. MD Complaint: confusion -: unknown Context: alcohol abuse - Related Data Previous Rx's Medication Instructions Recorded Last Taken Type Folic Acid [Folvite] 1 mg PO QDAY #30 tablet 04/13/18 Unknown Rx Sertraline [Zoloft] 25 mg PO QDAY #15 tablet 04/13/18 Unknown Rx Thiamine [Vitamin B-1] 100 mg PO QDAY #30 tablet 04/13/18 Unknown Rx busPIRone [Buspar] 7.5 mg PO BID #30 tablet 04/13/18 Unknown Rx Allergies Allergy/AdvReac Type Severity Reaction Status Date / Time No Known Allergies Allergy Unverified 04/02/18 15:12 ED Review of Systems ROS: Stated complaint: WEAKNESS Other details as noted in HPI Comment: Unobtainable due to pts medical conditions ED Past Medical Hx - Past Medical History Hx Psychiatric Treatment: Yes Additional medical history: psoriasis - Social History Smoking Status: Unknown if ever smoked - Medications Home Medications: Home Medications Medication Instructions Recorded Confirmed Last Taken Type Folic Acid [Folvite] 1 mg PO QDAY #30 tablet 04/13/18 Unknown Rx Sertraline [Zoloft] 25 mg PO QDAY #15 tablet 04/13/18 Unknown Rx Thiamine [Vitamin B-1] 100 mg PO QDAY #30 tablet 04/13/18 Unknown Rx busPIRone [Buspar] 7.5 mg PO BID #30 tablet 04/13/18 Unknown Rx ED Physical Exam - General Limitations: Altered Mental Status, Physical Limitation General appearance: alert, in distress (moderate respiratory distress) - Head Head exam: Present: atraumatic, normocephalic, normal inspection - Eye Eye exam: Present: normal appearance, PERRL, scleral icterus - Neck Neck exam: Present: normal inspection, full ROM. Absent: tenderness, menin gismus - Respiratory Respiratory exam: Present: respiratory distress, decreased breath sounds. Absent: wheezes, rales - Cardiovascular Cardiovascular Exam: Present: regular rate, normal rhythm, normal heart sounds - GI/Abdominal GI/Abdominal exam: Present: soft, distended, normal bowel sounds. Absent: tenderness, guarding, rebound, rigid, organomegaly, mass, pulsatile mass, hernia - Extremities Exam Extremities exam: Present: normal inspection - Neurological Exam Neurological exam: Present: alert, altered, CN II-XII intact - Skin Skin exam: Present: warm, intact ED Course Vital Signs 08/16/18 08/17/18 08/17/18 23:25 00:00 00:03 Temperature 98.3 F Pulse Rate 95 H 109 H 107 H Respiratory 19 17 30 H Rate Blood Pressure 187/83 156/96 Blood Pressure 156/96 [Left] O2 Sat by Pulse 92 93 95 Oximetry 08/17/18 08/17/18 00:30 01:00 Temperature Pulse Rate 96 H 100 H Respiratory 24 30 H Rate Blood Pressure 139/88 130/59 Blood Pressure [Left] O2 Sat by Pulse 96 82 L Oximetry - Lab Data Result diagrams: 08/17/18 00:30 08/17/18 00:30 Lab Results 08/17/18 08/17/18 08/17/18 Range/Units 00:30 00:30 00:30 WBC 4.0 L (4.5-11.0) K/mm3 RBC 2.78 L (3.65-5.03) M/mm3 Hgb 11.9 (11.8-15.2) gm/dl Hct 34.1 L (35.5-45.6) % MCV 123 H (84-94) fl MCH 43 H (28-32) pg MCHC 35 H (32-34) % RDW 22.4 H (13.2-15.2) % Plt Count 52 L (140-440) K/mm3 PT 34.2 H (12.2-14.9) Sec. INR 3.11 H (0.87-1.13) APTT 47.6 H (24.2-36.6) Sec. Sodium 120 L (137-145) mmol/L Potassium 3.3 L (3.6-5.0) mmol/L Chloride 74.5 L (98-107) mmol/L Carbon Dioxide 13 L (22-30) mmol/L Anion Gap 36 mmol/L BUN 7 L (9-20) mg/dL Creatinine 1.7 H (0.8-1.5) mg/dL Estimated GFR 43 ml/min BUN/Creatinine Ratio 4 % Glucose 62 L (75-100) mg/dL Lactic Acid (0.7-2.0) mmol/L Calcium 7.6 L (8.4-10.2) mg/dL Total Bilirubin (0.1-1.2) mg/dL Direct Bilirubin (0-0.2) mg/dL Indirect Bilirubin mg/dL AST (5-40) units/L ALT (7-56) units/L Alkaline Phosphatase (35-129) units/L Ammonia (25-60) umol/L Total Protein (6.3-8.2) g/dL Albumin (3.9-5) g/dL Albumin/Globulin Ratio % Plasma/Serum Alcohol (0-0.07) % 08/17/18 08/17/18 08/17/18 Range/Units 00:30 00:30 00:30 WBC (4.5-11.0) K/mm3 RBC (3.65-5.03) M/mm3 Hgb (11.8-15.2) gm/dl Hct (35.5-45.6) % MCV (84-94) fl MCH (28-32) pg MCHC (32-34) % RDW (13.2-15.2) % Plt Count (140-440) K/mm3 PT (12.2-14.9) Sec. INR (0.87-1.13) APTT (24.2-36.6) Sec. Sodium (137-145) mmol/L Potassium (3.6-5.0) mmol/L Chloride (98-107) mmol/L Carbon Dioxide (22-30) mmol/L Anion Gap mmol/L BUN (9-20) mg/dL Creatinine (0.8-1.5) mg/dL Estimated GFR ml/min BUN/Creatinine Ratio % Glucose (75-100) mg/dL Lactic Acid 16.80 H* (0.7-2.0) mmol/L Calcium (8.4-10.2) mg/dL Total Bilirubin (0.1-1.2) mg/dL Direct Bilirubin (0-0.2) mg/dL Indirect Bilirubin mg/dL AST (5-40) units/L ALT (7-56) units/L Alkaline Phosphatase (35-129) units/L Ammonia 197.0 H (25-60) umol/L Total Protein (6.3-8.2) g/dL Albumin (3.9-5) g/dL Albumin/Globulin Ratio % Plasma/Serum Alcohol < 0.01 (0-0.07) % 08/17/18 Range/Units 00:30 WBC (4.5-11.0) K/mm3 RBC (3.65-5.03) M/mm3 Hgb (11.8-15.2) gm/dl Hct (35.5-45.6) % MCV (84-94) fl MCH (28-32) pg MCHC (32-34) % RDW (13.2-15.2) % Plt Count (140-440) K/mm3 PT (12.2-14.9) Sec. INR (0.87-1.13) APTT (24.2-36.6) Sec. Sodium (137-145) mmol/L Potassium (3.6-5.0) mmol/L Chloride (98-107) mmol/L Carbon Dioxide (22-30) mmol/L Anion Gap mmol/L BUN (9-20) mg/dL Creatinine (0.8-1.5) mg/dL Estimated GFR ml/min BUN/Creatinine Ratio % Glucose (75-100) mg/dL Lactic Acid (0.7-2.0) mmol/L Calcium (8.4-10.2) mg/dL Total Bilirubin 13.40 H (0.1-1.2) mg/dL Direct Bilirubin 7.2 H (0-0.2) mg/dL Indirect Bilirubin 6.2 mg/dL AST 98 H (5-40) units/L ALT 31 (7-56) units/L Alkaline Phosphatase 71 (35-129) units/L Ammonia (25-60) umol/L Total Protein 6.6 (6.3-8.2) g/dL Albumin 1.8 L (3.9-5) g/dL Albumin/Globulin Ratio 0.4 % Plasma/Serum Alcohol (0-0.07) % - Medical Decision Making Patient is 47 years old male with history of alcohol abuse. Patient brought to the emergency room from a nearby hotel for confusion. Patient with generalized jaundice, obvious ascites and difficulty in breathing. Patient is alert and moving all his extremities but confused and unable to obtain more history from him. The patient was admitted last year for alcohol intoxication the patient looks like he has chronic liver problem with possible encephalopathy. Patient's CT brain is negative for acute finding. Chest x-ray show pleural effusion. Ammonia level is 197 patient started on lactulose. Patient's lactic acid is 16. Patient is in acute hepatic encephalopathy. I discussed the patient is Dr. Portillo, she agreed to admit the patient to medical service. Critical Care Time: Yes Critical care time in (mins) excluding proc time.: 30 Critical care attestation.: If time is entered above; I have spent that time in minutes in the direct care of this critically ill patient, excluding procedure time. ED Disposition Clinical Impression: Encephalopathy, Lactic acidosis, Altered mental status, Hepatic failure due to alcoholism Disposition: -09 OP ADMIT IP TO THIS HOSP Is pt being admited?: Yes Condition: Stable Referrals: SUZANNE PADILLA MD [Primary Care Provider] - 3-5 Days
--- NOTE | 2018-08-17 00:52 | Cat Scan Report ---
PROCEDURE: CT HEAD/BRAIN WO CON TECHNIQUE: Spiral CT imaging of the brain was obtained without the use of IV contrast. HISTORY: AMS COMPARISONS: Prior CT scan of the brain 04/02/2018 FINDINGS: Brain: There is no evidence of intracranial hemorrhage. No parenchymal hemorrhage is seen. No mass lesions or mass effect is identified. No abnormal extra-axial fluid collections or masses are seen. There is some decreased density seen in the periventricular white matter without mass effect. This i s fairly symmetric and does not exhibit any mass effect consistent with gliosis probably on the basis of microvascular disease or white matter changes of aging. Ventricles: The ventricles, sulcal pattern and fissures are prominent consistent with atrophy. Bone Windows: No evidence of fracture. Paranasal sinuses: Clear. Mastoid air cells: There is stable opacification of a few of the mastoid air cells on the right infe riorly. Left mastoid air cells are clear. IMPRESSION: No acute abnormalities are seen. There is evidence of minimal atrophy and gliosis. No interval change since the prior study. Stable mild mastoid air cell disease on the right. This document is electronically signed by Chris Angulo MD., Aug 17 2018 12:50:41 AM ET
[2018-08-17 01:05] LABS: Hematocrit 34.1 % (35.5-45.6); Hemoglobin 11.9 gm/dl (11.8-15.2); Mean Corpuscular HGB Conc 35 % (32-34); Red Blood Count 2.78 M/mm3 (3.65-5.03)
[2018-08-17 01:25] LABS: Calcium 7.6 mg/dL (8.4-10.2)
[2018-08-17 01:27] LABS: Albumin 1.8 g/dL (3.9-5); Bilirubin,Direct 7.2 mg/dL (0-0.2)
[2018-08-17 01:31] LABS: INR 3.11 (0.87-1.13)
[2018-08-17 01:32] LABS: Mean Corpuscular Volume 123 fl (84-94); Partial Thromboplastin Time 47.6 Sec. (24.2-36.6); Platelet Count 52 K/mm3 (140-440); Red Cell Distribution Width 22.4 % (13.2-15.2)
--- NOTE | 2018-08-17 01:39 | XRay Report ---
PROCEDURE: XR CHEST 1V AP TECHNIQUE: AP portable view of the chest HISTORY: Altered mental status COMPARISONS: 04/02/2018 FINDINGS: The cardiomediastinal silhouette appears normal. The lungs are hypoaerated. The right lung is clear. There is a new large left pleural effusion. Otherwise, the left lung is clear. The bones and soft tis sues are unremarkable. IMPRESSION: New large left pleural effusion This document is electronically signed by Aleena Lutz MD., Aug 17 2018 01:36:52 AM ET
[2018-08-17] MEDS ORDERED: CEPHULAC PO ONE ×2 (02:25→15:17)
[2018-08-17] MEDS ORDERED: MORPHINE IV PRN (02:57)
[2018-08-17] MEDS ORDERED: ZOFRAN IV PRN (02:57)
[2018-08-17] MEDS ORDERED: TYLENOL PO PRN (02:57)
[2018-08-17] MEDS ORDERED: SODIUM CHLORIDE FLUSH SYRINGE 10 ML IV PRN (02:57)
[2018-08-17] MEDS ORDERED: NACL 0.9% 1000 ML 1,000 ML IV SCH (03:00)
[2018-08-17 03:31] LABS: Amorphous Crystals,Urine 2+; Bacteria,Urine 2+ /HPF (Negative); Bilirubin,Urine SM (Negative); Blood,Urine LG (Negative); Color,Urine Red (Yellow); Granular Casts,Urine 10 /LPF; Hyaline Casts,Urine 7 /LPF; Mucus,Urine 3+ /HPF
[2018-08-17] MEDS ORDERED: DUONEB *Not for PRN Use IH SCH (03:45)
[2018-08-17 03:46] LABS: Ictotest,Urine Positive (Negative)
--- NOTE | 2018-08-17 03:49 | History and Physical Report ---
History of Present Illness Date of examination: 08/17/18 Chief complaint: "I haven't slept for days" History of present illness: Patient is a 47-year-old male with history of chronic alcoholic liver disease who was brought to the ED via EMS on account of confusion. Of note, patient is a poor historian. When asked why he is here, he stated that he hasn't slept for days. Per report, patient was brought from a nearby hotel due to confusion. He was also found to have abdominal distention with generalized pain, yellowish skin and shortness of breath. No other history could be obtained from the patient. No reported history of fever, falls, syncope or loss of consciousness. While in the ED after my evaluation, [facility] YANES was called on the patient. He was emergently intubated and later successfully resuscitated. Past History Past Medical History: liver disease Past Surgical History: No surgical history Social history: alcohol abuse (he stated that his last drink was about one week ago. He denies tobacco or illicit drug use) Family history: other (unable to obtain due to altered mental status) Medications and Allergies Allergies Allergy/AdvReac Type Severity Reaction Status Date / Time No Known Allergies Allergy Unverified 04/02/18 15:12 Home Medications Medication Instructions Recorded Confirmed Last Taken Type Folic Acid [Folvite] 1 mg PO QDAY #30 tablet 04/13/18 08/17/18 Unknown Rx Sertraline [Zoloft] 25 mg PO QDAY #15 tablet 04/13/18 08/17/18 Unknown Rx Thiamine [Vitamin B-1] 100 mg PO QDAY #30 tablet 04/13/18 08/17/18 Unknown Rx busPIRone [Buspar] 7.5 mg PO BID #30 tablet 04/13/18 08/17/18 Unknown Rx Active Meds: Active Medications Acetaminophen (Tylenol) 650 mg PO Q6H PRN PRN Reason: Pain MILD(1-3)/Fever >100.5/LAW Dextrose/Sodium Chloride (D5ns) 1,000 mls @ 100 mls/hr IV DIRECT REJI Lactulose (Cephulac) 20 gm PO Q6HR REJI Morphine Sulfate (Morphine) 2 mg IV Q4H PRN PRN Reason: Pain, Moderate (4-6) Ondansetron HCl (Zofran) 4 mg IV Q8H PRN PRN Reason: Nausea And Vomiting Rifaximin (Xifaxan) 500 mg PO BID REJI Sodium Chloride (Sodium Chloride Flush Syringe 10 Ml) 10 ml IV BID REJI Sodium Chloride (Sodium Chloride Flush Syringe 10 Ml) 10 ml IV PRN PRN PRN Reason: LINE FLUSH Review of Systems ROS unobtainable: due to mental status Exam - Constitutional Vitals: Temp Pulse Resp BP Pulse Ox 98.3 F 90 29 H 130/59 96 08/17/18 00:03 08/17/18 02:30 08/17/18 02:30 08/17/18 02:30 08/17/18 02:30 General appearance: Present: mild distress - EENT Eyes: Present: PERRL, EOM intact, scleral icterus ENT: hearing intact, clear oral mucosa - Neck Neck: Present: supple - Respiratory Respiratory effort: labored Respiratory: left: rales, bilateral: diminished - Cardiovascular Rhythm: regular (with tachycardia) Heart Sounds: Present: S1 & S2 - Extremities Extremity abnormal: edema (in bilateral lower extremities) - Abdominal General gastrointestinal: Present: tender (generalized), distended (with massive ascites), rigid, normal bowel sounds Male genitourinary: Present: deferred - Integumentary Integumentary: Present: clear, warm, pale - Musculoskeletal Musculoskeletal: generalized weakness - Neurologic Neurologic: moves all extremities Results - Labs CBC & Chem 7: 08/17/18 00:30 08/17/18 00:30 Labs: Laboratory Last Values WBC 4.0 K/mm3 (4.5-11.0) L 08/17/18 00:30 RBC 2.78 M/mm3 (3.65-5.03) L 08/17/18 00:30 Hgb 11.9 gm/dl (11.8-15.2) 08/17/18 00:30 Hct 34.1 % (35.5-45.6) L 08/17/18 00:30 MCV 123 fl (84-94) H 08/17/18 00:30 MCH 43 pg (28-32) H 08/17/18 00:30 MCHC 35 % (32-34) H 08/17/18 00:30 RDW 22.4 % (13.2-15.2) H 08/17/18 00:30 Plt Count 52 K/mm3 (140-440) L 08/17/18 00:30 PT 34.2 Sec. (12.2-14.9) H 08/17/18 00:30 INR 3.11 (0.87-1.13) H 08/17/18 00:30 APTT 47.6 Sec. (24.2-36.6) H 08/17/18 00:30 Sodium 120 mmol/L (137-145) L 08/17/18 00:30 Potassium 3.3 mmol/L (3.6-5.0) L 08/17/18 00:30 Chloride 74.5 mmol/L (98-107) L 08/17/18 00:30 Carbon Dioxide 13 mmol/L (22-30) L 08/17/18 00:30 Anion Gap 36 mmol/L 08/17/18 00:30 BUN 7 mg/dL (9-20) L 08/17/18 00:30 Creatinine 1.7 mg/dL (0.8-1.5) H 08/17/18 00:30 Estimated GFR 43 ml/min 08/17/18 00:30 BUN/Creatinine Ratio 4 % 08/17/18 00:30 Glucose 62 mg/dL (75-100) L 08/17/18 00:30 Lactic Acid 16.60 mmol/L (0.7-2.0) H* 08/17/18 01:53 Calcium 7.6 mg/dL (8.4-10.2) L 08/17/18 00:30 Total Bilirubin 13.40 mg/dL (0.1-1.2) H 08/17/18 00:30 Direct Bilirubin 7.2 mg/dL (0-0.2) H 08/17/18 00:30 Indirect Bilirubin 6.2 mg/dL 08/17/18 00:30 AST 98 units/L (5-40) H 08/17/18 00:30 ALT 31 units/L (7-56) 08/17/18 00:30 Alkaline Phosphatase 71 units/L (35-129) 08/17/18 00:30 Ammonia 197.0 umol/L (25-60) H 08/17/18 00:30 Total Protein 6.6 g/dL (6.3-8.2) 08/17/18 00:30 Albumin 1.8 g/dL (3.9-5) L 08/17/18 00:30 Albumin/Globulin Ratio 0.4 % 08/17/18 00:30 Urine Color Red (Yellow) 08/17/18 02:00 Urine Turbidity Cloudy (Clear) 08/17/18 02:00 Urine pH 5.0 (5.0-7.0) 08/17/18 02:00 Ur Specific [place] 1.013 (1.003-1.030) 08/17/18 02:00 Urine Protein 30 mg/dl mg/dL (Negative) 08/17/18 02:00 Urine Glucose (UA) Neg mg/dL (Negative) 08/17/18 02:00 Urine Ketones Neg mg/dL (Negative) 08/17/18 02:00 Urine Blood Lg (Negative) 08/17/18 02:00 Urine Nitrite Neg (Negative) 08/17/18 02:00 Urine Bilirubin Sm (Negative) 08/17/18 02:00 Urine Urobilinogen 4.0 mg/dL (<2.0) 08/17/18 02:00 Ur Leukocyte Esterase Neg (Negative) 08/17/18 02:00 Urine WBC (Auto) 7.0 /HPF (0.0-6.0) H 08/17/18 02:00 Urine RBC (Auto) 11.0 /HPF (0.0-6.0) 08/17/18 02:00 U Epithel Cells (Auto) 1.0 /HPF (0-13.0) 08/17/18 02:00 Urine Bacteria (Auto) 2+ /HPF (Negative) 08/17/18 02:00 Amorphous Crystals 2+ 08/17/18 02:00 Hyaline Casts 7 /LPF 08/17/18 02:00 Granular Casts 10 /LPF 08/17/18 02:00 Urine Mucus 3+ /HPF 08/17/18 02:00 Plasma/Serum Alcohol < 0.01 % (0-0.07) 08/17/18 00:30 Assessment and Plan Assessment and plan: Acute hepatic encephalopathy -On lactulose and rifaximin -GI consulted Acute respiratory failure with hypoxia -Status post intubation on mechanical ventilator -Pulmonology consulted Recurrent massive ascites -2/2 end-stage alcoholic chronic liver disease -IR consulted for paracentesis -Patient would benefit from albumin SIRS with lactic acidosis -Probably secondary to SBP -On IV Rocephin -Paracentesis pending ARF -Probably hepatorenal syndrome -Nephrology consulted Acute on chronic hyponatremia -On fluid restriction, will monitor sodium level Hypokalemia/Hypomagnesemia -On repletion, will monitor levels Acute metabolic acidosis -will monitor bicarbonate level Chronic pancytopenia and coagulopathy -Likely secondary to CLD -We'll monitor levels Left pleural effusion -Likely secondary to the CLD Hypoglycemia -On dextrose IV fluid and hypoglycemic protocol Severe protein calorie malnutrition -Dietitian consulted Chronic alcohol abuse -Patient continues to drink alcohol -He'll be placed on alcohol withdrawal protocol DVT prophylaxis with SCD due to chronic cortical opacity Disposition: Patient will be admitted to the ICU. I spent 45 minutes providing critical care to be seriously ill patient who requires frequent reassessments of his respiratory and metabolic status. Patient meld score is high at 34 with high mortality rate.
[2018-08-17] MEDS ORDERED: XIFAXAN PO SCH (04:00)
[2018-08-17] MEDS ORDERED: D5NS 1,000 ML IV SCH (04:00)
[2018-08-17] MEDS ORDERED: MAGNESIUM SULFATE 1 GM in NACL 0.9% 50 ML IV ONE (04:09)
[2018-08-17] MEDS ORDERED: HALDOL IV PRN (05:25)
[2018-08-17] MEDS ORDERED: ATIVAN IV PRN ×2 (05:25)
[2018-08-17] MEDS ORDERED: D50W (25GM) Syringe IV PRN (05:36)
[2018-08-17 05:39] LABS: Band Neutrophils # (Manual) 3.5 K/mm3; Basophils % (Manual) 0 % (0.0-1.8); Eosinophils % (Manual) 0 % (0.0-4.3); Monocytes % (Manual) 0 % (0.0-7.3); Total Cells Counted 100
[2018-08-17 05:42] LABS: Anisocytosis 2+; Macrocytosis 1+; Platelet Estimate Consistent w Auto
[2018-08-17] MEDS ORDERED: CEPHULAC PO SCH (06:00)
--- NOTE | 2018-08-17 06:08 | Event Note ---
Date: 08/17/18 I was called to the patient room after patient found unresponsive and pulseless. code blue initiated, ACLS initiated. Patient with a lot of dark and coffee- ground secretion with obvious aspiration, patient immediately suctioned and intubated by me. Patient remained in a PEA for a few minutes and then regained his pulses. For further information please refer to code sheet. No family available at this time.
[2018-08-17] MEDS ORDERED: ARTIFICIAL TEARS OPHTH OINT OU PRN (06:20)
[2018-08-17] MEDS ORDERED: VASELINE LIP THERAPY TP PRN (06:20)
[2018-08-17] MEDS ORDERED: ADRENALIN ONE (06:30)
[2018-08-17] MEDS ORDERED: DIPRIVAN 10 MG/ML 1,000 MG/100 ML BOTTLE IV SCH (07:00)
[2018-08-17] MEDS: ROCEPHIN/NS 2 GM/100 ML 2 GM/100 ML BAG IV SCH (07:13)
--- NOTE | 2018-08-17 07:18 | XRay Report ---
PROCEDURE: XR CHEST 1V AP TECHNIQUE: Chest radiograph single view. HISTORY: Intubation and OG placement COMPARISONS: August 17, 2018 . FINDINGS: Heart: Normal. Mediastinum/Vessels: Normal. Lungs/Pleural space: There are bilateral lower lobe infiltrates and effusions. There is no pneumotho rax.. Bony thorax: No acute osseous abnormality. Life support devices: The endotracheal tube is in the mid trachea. NG tube is in the stomach.. IMPRESSION: The heart size is normal.. There are bilateral lower lobe infiltrates and effusions. There is no pneumothorax.. The endotracheal tube is in the mid trachea. NG tube is in the stomach.. This document is electronically signed by Blanco Jonas MD., Aug 17 2018 07:16:04 AM ET
--- NOTE | 2018-08-17 08:15 | Progress Note ---
Assessment and Plan Assessment and plan: Patient is a 47-year-old man with history of chronic alcoholic liver disease who was brought to the ED via EMS for AMS, confusion. Per report, patient was brought from a nearby hotel due to confusion. While in ED, in went into cardiac arrest with PEA. He was emergently intubated and later successfully resuscitated. -Acute Liver Failure, poor prognosis: GI consulted -MSOF: brain,renal, liver, lung, heart, skin -Circulatory shock: start IV dopamine drip, until Central line obtained -Acute hepatic encephalopathy-On lactulose and rifaximin-GI consulted -Acute respiratory failure with hypoxia-Status post intubation on mechanical ventilator-Pulmonology consulted -Recurrent massive ascites-2/2 end-stage alcoholic chronic liver disease-IR con sulted for paracentesis-Patient would benefit from albumin -SIRS with lactic acidosis, with organ dysfunction suspected Sepsis, poa- Probably secondary to SBP-On IV Rocephin-Paracentesis pending -ARF-ATN+Probably hepatorenal syndrome-Nephrology consulted -Acute on chronic hyponatremia-On fluid restriction, will monitor sodium level -Hypokalemia/Hypomagnesemia--On repletion, will monitor levels -Acute metabolic acidosis-will monitor bicarbonate level -Left pleural effusion, in liver failure -Hypoglycemia, he is dying-On dextrose IV fluid and hypoglycemic protocol -Severe protein calorie malnutrition-Dietitian consulted -h/o Chronic alcohol abuse-Patient continues to drink alcohol-He'll be placed on alcohol withdrawal protocol DVT prophylaxis with SCD Disposition: Patient will be admitted to the ICU. poor prognosis prolonged inpatient services 31 minutes History Interval history: Follow up Cardiac arrest. Patient is Doing very bad, I do NOT think patient will survive. I have asked for assistance in locating family/next of kin. Hospitalist Physical - Physical exam Narrative exam: Unresponsive Intubated not sedated NGT with coffee ground substance Pupils fixed and dilated Agonal breathing Sclera icterus Jaundice Severe abd distension with Ascites Anasarca Lungs diminished bS bilaterally leg edema Not responding neurologically heart tones faint - Constitutional Vitals: Temp Pulse Resp BP Pulse Ox 98.3 F 68 16 88/46 80 L 08/17/18 00:03 08/17/18 07:40 08/17/18 07:40 08/17/18 07:40 08/17/18 07:40 General appearance: Absent: mild distress Results - Labs CBC & Chem 7: 08/17/18 00:30 08/17/18 00:30 Labs: Laboratory Last Values WBC 4.0 K/mm3 (4.5-11.0) L 08/17/18 00:30 RBC 2.78 M/mm3 (3.65-5.03) L 08/17/18 00:30 Hgb 11.9 gm/dl (11.8-15.2) 08/17/18 00:30 Hct 34.1 % (35.5-45.6) L 08/17/18 00:30 MCV 123 fl (84-94) H 08/17/18 00:30 MCH 43 pg (28-32) H 08/17/18 00:30 MCHC 35 % (32-34) H 08/17/18 00:30 RDW 22.4 % (13.2-15.2) H 08/17/18 00:30 Plt Count 52 K/mm3 (140-440) L 08/17/18 00:30 Add Manual Diff Complete 08/17/18 00:30 Total Counted 100 08/17/18 00:30 Seg Neuts % (Manual) 12.0 % (40.0-70.0) L 08/17/18 00:30 Band Neutrophils % 87.0 % 08/17/18 00:30 Lymphocytes % (Manual) 1.0 % (13.4-35.0) L 08/17/18 00:30 Reactive Lymphs % (Man) 0 % 08/17/18 00:30 Monocytes % (Manual) 0 % (0.0-7.3) 08/17/18 00:30 Eosinophils % (Manual) 0 % (0.0-4.3) 08/17/18 00:30 Basophils % (Manual) 0 % (0.0-1.8) 08/17/18 00:30 Metamyelocytes % 0 % 08/17/18 00:30 Myelocytes % 0 % 08/17/18 00:30 Promyelocytes % 0 % 08/17/18 00:30 Blast Cells % 0 % 08/17/18 00:30 Nucleated RBC % Not Reportable 08/17/18 00:30 Seg Neutrophils # Man 0.5 K/mm3 (1.8-7.7) L 08/17/18 00:30 Band Neutrophils # 3.5 K/mm3 08/17/18 00:30 Lymphocytes # (Manual) 0.0 K/mm3 (1.2-5.4) L 08/17/18 00:30 Abs React Lymphs (Man) 0.0 K/mm3 08/17/18 00:30 Monocytes # (Manual) 0.0 K/mm3 (0.0-0.8) 08/17/18 00:30 Eosinophils # (Manual) 0.0 K/mm3 (0.0-0.4) 08/17/18 00:30 Basophils # (Manual) 0.0 K/mm3 (0.0-0.1) 08/17/18 00:30 Metamyelocytes # 0.0 K/mm3 08/17/18 00:30 Myelocytes # 0.0 K/mm3 08/17/18 00:30 Promyelocytes # 0.0 K/mm3 08/17/18 00:30 Blast Cells # 0.0 K/mm3 08/17/18 00:30 WBC Morphology Not Reportable 08/17/18 00:30 Hypersegmented Neuts Not Reportable 08/17/18 00:30 Hyposegmented Neuts Not Reportable 08/17/18 00:30 Hypogranular Neuts Not Reportable 08/17/18 00:30 Smudge Cells Not Reportable 08/17/18 00:30 Toxic Granulation Not Reportable 08/17/18 00:30 Toxic Vacuolation Not Reportable 08/17/18 00:30 Dohle Bodies Not Reportable 08/17/18 00:30 Pelger-Huet Anomaly Not Reportable 08/17/18 00:30 Jose Rods Not Reportable 08/17/18 00:30 Platelet Estimate Consistent w auto 08/17/18 00:30 Clumped Platelets Not Reportable 08/17/18 00:30 Plt Clumps, EDTA Not Reportable 08/17/18 00:30 Large Platelets Not Reportable 08/17/18 00:30 Giant Platelets Not Reportable 08/17/18 00:30 Platelet Satelliting Not Reportable 08/17/18 00:30 Plt Morphology Comment Not Reportable 08/17/18 00:30 RBC Morphology Not Reportable 08/17/18 00:30 Dimorphic RBCs Not Reportable 08/17/18 00:30 Polychromasia 1+ 08/17/18 00:30 Hypochromasia Not Reportable 08/17/18 00:30 Poikilocytosis Not Reportable 08/17/18 00:30 Anisocytosis 2+ 08/17/18 00:30 Microcytosis Not Reportable 08/17/18 00:30 Macrocytosis 1+ 08/17/18 00:30 Spherocytes Not Reportable 08/17/18 00:30 Pappenheimer Bodies Not Reportable 08/17/18 00:30 Sickle Cells Not Reportable 08/17/18 00:30 Target Cells Not Reportable 08/17/18 00:30 Tear Drop Cells Not Reportable 08/17/18 00:30 Ovalocytes Not Reportable 08/17/18 00:30 Helmet Cells Not Reportable 08/17/18 00:30 Watts-Baggs Bodies Not Reportable 08/17/18 00:30 [place] Rings Not Reportable 08/17/18 00:30 Pablo Cells Not Reportable 08/17/18 00:30 Bite Cells Not Reportable 08/17/18 00:30 Crenated Cell Not Reportable 08/17/18 00:30 Elliptocytes Not Reportable 08/17/18 00:30 Acanthocytes (Spur) Not Reportable 08/17/18 00:30 Rouleaux Not Reportable 08/17/18 00:30 Hemoglobin C Crystals Not Reportable 08/17/18 00:30 Schistocytes Not Reportable 08/17/18 00:30 Malaria parasites Not Reportable 08/17/18 00:30 Kush Bodies Not Reportable 08/17/18 00:30 Hem Pathologist Commnt No 08/17/18 00:30 PT 34.2 Sec. (12.2-14.9) H 08/17/18 00:30 INR 3.11 (0.87-1.13) H 08/17/18 00:30 APTT 47.6 Sec. (24.2-36.6) H 08/17/18 00:30 POC ABG pH 7.293 (7.35-7.45) L 08/17/18 04:21 POC ABG pO2 66 (80-105) L 08/17/18 04:21 POC ABG HCO3 12.5 (22-26 mml/L) 08/17/18 04:21 POC ABG Total CO2 13 (23-27mmol/L) 08/17/18 04:21 POC ABG O2 Sat 91 08/17/18 04:21 POC ABG Base Excess -14 ((-2) - (+3)mmol/L) 08/17/18 04:21 FiO2 40 % 08/17/18 04:21 Sodium 120 mmol/L (137-145) L 08/17/18 00:30 Potassium 3.3 mmol/L (3.6-5.0) L 08/17/18 00:30 Chloride 74.5 mmol/L (98-107) L 08/17/18 00:30 Carbon Dioxide 13 mmol/L (22-30) L 08/17/18 00:30 Anion Gap 36 mmol/L 08/17/18 00:30 BUN 7 mg/dL (9-20) L 08/17/18 00:30 Creatinine 1.7 mg/dL (0.8-1.5) H 08/17/18 00:30 Estimated GFR 43 ml/min 08/17/18 00:30 BUN/Creatinine Ratio 4 % 08/17/18 00:30 Glucose 62 mg/dL (75-100) L 08/17/18 00:30 Lactic Acid 10.90 mmol/L (0.7-2.0) H* 08/17/18 06:20 Calcium 7.6 mg/dL (8.4-10.2) L 08/17/18 00:30 Magnesium 1.50 mg/dL (1.7-2.3) L 08/17/18 03:23 Total Bilirubin 13.40 mg/dL (0.1-1.2) H 08/17/18 00:30 Direct Bilirubin 7.2 mg/dL (0-0.2) H 08/17/18 00:30 Indirect Bilirubin 6.2 mg/dL 08/17/18 00:30 AST 98 units/L (5-40) H 08/17/18 00:30 ALT 31 units/L (7-56) 08/17/18 00:30 Alkaline Phosphatase 71 units/L (35-129) 08/17/18 00:30 Ammonia 197.0 umol/L (25-60) H 08/17/18 00:30 Total Protein 6.6 g/dL (6.3-8.2) 08/17/18 00:30 Albumin 1.8 g/dL (3.9-5) L 08/17/18 00:30 Albumin/Globulin Ratio 0.4 % 08/17/18 00:30 Urine Color Red (Yellow) 08/17/18 02:00 Urine Turbidity Cloudy (Clear) 08/17/18 02:00 Urine pH 5.0 (5.0-7.0) 08/17/18 02:00 Ur Specific [place] 1.013 (1.003-1.030) 08/17/18 02:00 Urine Protein 30 mg/dl mg/dL (Negative) 08/17/18 02:00 Urine Glucose (UA) Neg mg/dL (Negative) 08/17/18 02:00 Urine Ketones Neg mg/dL (Negative) 08/17/18 02:00 Urine Blood Lg (Negative) 08/17/18 02:00 Urine Nitrite Neg (Negative) 08/17/18 02:00 Urine Bilirubin Sm (Negative) 08/17/18 02:00 Urine Ictotest Positive (Negative) 08/17/18 02:00 Urine Urobilinogen 4.0 mg/dL (<2.0) 08/17/18 02:00 Ur Leukocyte Esterase Neg (Negative) 08/17/18 02:00 Urine WBC (Auto) 7.0 /HPF (0.0-6.0) H 08/17/18 02:00 Urine RBC (Auto) 11.0 /HPF (0.0-6.0) 08/17/18 02:00 U Epithel Cells (Auto) 1.0 /HPF (0-13.0) 08/17/18 02:00 Urine Bacteria (Auto) 2+ /HPF (Negative) 08/17/18 02:00 Amorphous Crystals 2+ 08/17/18 02:00 Hyaline Casts 7 /LPF 08/17/18 02:00 Granular Casts 10 /LPF 08/17/18 02:00 Urine Mucus 3+ /HPF 08/17/18 02:00 Plasma/Serum Alcohol < 0.01 % (0-0.07) 08/17/18 00:30 Active Medications - Current Medications Current Medications: Generic Name Dose Route Start Last Admin Trade Name Freq PRN Reason Stop Dose Admin Acetaminophen 650 mg 08/17/18 02:57 Tylenol PO Q6H PRN Pain MILD(1-3)/Fever >100.5/LAW Albuterol/Ipratropium 1 ampul 08/17/18 08:00 Duoneb *Not For Prn Use* IH TIDRT REJI Dextrose 50 ml 08/17/18 05:36 D50w (25gm) Syringe IV PRN PRN Hypoglycemia Famotidine 10 mg 08/17/18 10:00 Pepcid IV BID REJI Folic Acid 1 mg 08/17/18 10:00 Folvite PO QDAY REJI Hydrophilic Ointment 1 applic 08/17/18 06:20 Vaseline Lip Therapy TP Q2HR PRN Dry Lips Dextrose/Sodium Chloride 1,000 mls @ 100 mls/hr 08/17/18 04:00 08/17/18 04:32 D5ns IV 100 mls/hr DIRECT REJI Administration Ceftriaxone Sodium 2 gm in 100 mls @ 200 mls/hr 08/17/18 06:00 08/17/18 07:13 Rocephin/Ns 2 Gm/100 Ml IV 200 mls/hr Q24H REJI Administration Protocol Propofol 1,000 mg in 100 mls @ 5.1 mls/hr 08/17/18 07:00 Diprivan 10 Mg/Ml IV TITR REJI Protocol 5 MCG/KG/MIN Potassium Chloride 10 meq in 100 mls @ 100 mls/hr 08/17/18 09:00 Kcl 10meq/100ml IV 08/17/18 10:59 Q1H REJI Dopamine HCl/Dextrose 800 mg in 250 mls @ 6.375 mls/hr 08/17/18 09:00 Intropin Drip 800 Mg/D5w 250 Ml IV TITR REJI Protocol 2 MCG/KG/MIN Lactulose 20 gm 08/17/18 06:00 Cephulac PO Q6HR REJI Morphine Sulfate 2 mg 08/17/18 02:57 Morphine IV Q4H PRN Pain, Moderate (4-6) Multi-Ingred Cream/Lotion/Oil/Oint 1 applic 08/17/18 06:20 Artificial Tears Ophth Oint OU Q4HR PRN Dry Eye(s) Multivitamins 1 each 08/17/18 10:00 Theragran Tab PO QDAY REJI Ondansetron HCl 4 mg 08/17/18 02:57 08/17/18 04:32 Zofran IV 4 mg Q8H PRN Administration Nausea And Vomiting Rifaximin 500 mg 08/17/18 04:00 08/17/18 04:32 Xifaxan PO 500 mg BID REJI Administration Sodium Chloride 10 ml 08/17/18 10:00 Sodium Chloride Flush Syringe 10 Ml IV BID REJI Sodium Chloride 10 ml 08/17/18 02:57 Sodium Chloride Flush Syringe 10 Ml IV PRN PRN LINE FLUSH Thiamine HCl 100 mg 08/17/18 10:00 Vitamin B-1 PO QDAY REJI
[2018-08-17] MEDS: INTROPIN DRIP 800 MG/D5W 250 ML 800 MG/250 ML BAG IV SCH (08:32)
[2018-08-17] MEDS ORDERED: KCL 10MEQ/100ML 10 MEQ/100 ML BAG IV ONE ×2 (09:11→13:18)
[2018-08-17] MEDS ORDERED: PEPCID IV SCH (10:00)
[2018-08-17] MEDS ORDERED: VITAMIN B-1 PO SCH (10:00)
[2018-08-17] MEDS ORDERED: FOLVITE PO SCH (10:00)
[2018-08-17] MEDS ORDERED: THERAGRAN Tab PO SCH (10:00)
--- NOTE | 2018-08-17 12:11 | XRay Report ---
PORTABLE CHEST INDICATION: PICC placement. COMPARISON: 6:54 AM earlier today. FINDINGS: Portable, frontal chest radiograph, 9:52 AM, 08/17/2018 demonstrates a new left upper extremity PICC tip about the cavoatrial junction. Stable endotracheal and esophagogastric tubes. Normal cardiomediastinal silhouette with bilateral mid to lower lung hazy opacities representing atelectasis/pleural fluid again noted. EKG leads. Intact bones. CONCLUSION: Interval uncomplicated left upper extremity PICC placement, otherwise stable, as described. Thank you for the opportunity to participate in this patient's care.
[2018-08-17] MEDS: KCL 10MEQ/100ML 10 MEQ/100 ML BAG IV SCH ×2 (12:29→13:18)
[2018-08-17] MEDS ORDERED: DUONEB *Not for PRN Use IH ONE ×2 (13:16→13:17)
[2018-08-17] MEDS: DUONEB *Not for PRN Use IH SCH ×3 (13:23→19:38)
[2018-08-17] MEDS: SODIUM CHLORIDE FLUSH SYRINGE 10 ML IV SCH ×2 (13:38→23:27)
--- NOTE | 2018-08-17 14:17 | Gastroenterology Consultation ---
<HORTENCIA MCQUEEN - Last Filed: 08/17/18 15:10> History of Present Illness - Reason for Consult Consult date: 08/17/18 hepatic encephalopathy Requesting physician: CHELE AMEZCUA - History of Present Illness Patient is a 47 y/o male with PMH of alcoholic liver disease who was [place] from a nearby hotel to ED via EMS for AMS/confusion. While in ED, patient went into cardiac arrest with PEA and is currently unresponsive, intubated, and on pressor supportive with continued hypotension. GI has been consulted for hepatic encephalopathy. Patient unable to provide history (history obtained via chart review). Upon exam, there is small amount of coffee-ground drainage noted from OGT but no hematemesis, melena, or hematochezia noted since admission per nursing. patient is jaundice and abdomen distended likely 2/2 ascites. Actively drinking alcohol. No known illicit drug use. Past History Past Medical History: liver disease Past Surgical History: No surgical history Social history: alcohol abuse (he stated that his last drink was about one week ago. He denies tobacco or illicit drug use) Family history: other (unable to obtain due to altered mental status) Medications and Allergies Allergies Allergy/AdvReac Type Severity Reaction Status Date / Time No Known Allergies Allergy Unverified 04/02/18 15:12 Home Medications Medication Instructions Recorded Confirmed Last Taken Type Folic Acid [Folvite] 1 mg PO QDAY #30 tablet 04/13/18 08/17/18 Unknown Rx Sertraline [Zoloft] 25 mg PO QDAY #15 tablet 04/13/18 08/17/18 Unknown Rx Thiamine [Vitamin B-1] 100 mg PO QDAY #30 tablet 04/13/18 08/17/18 Unknown Rx busPIRone [Buspar] 7.5 mg PO BID #30 tablet 04/13/18 08/17/18 Unknown Rx Active Meds: Active Medications Albuterol/Ipratropium (Duoneb *Not For Prn Use*) 1 ampul TIDRT [facility] Last Admin: 08/17/18 13:23 Dose: 1 ampul Documented by: Dextrose (D50w (25gm) Syringe) 50 ml IV PRN PRN PRN Reason: Hypoglycemia Hydrophilic Ointment (Vaseline Lip Therapy) 1 applic TP Q2HR PRN PRN Reason: Dry Lips Dextrose/Sodium Chloride (D5ns) 1,000 mls @ 100 mls/hr IV DIRECT REJI Last Admin: 08/17/18 04:32 Dose: 100 mls/hr Documented by: Ceftriaxone Sodium (Rocephin/Ns 2 Gm/100 Ml) 2 gm in 100 mls @ 200 mls/hr IV Q24H REJI; Protocol Last Admin: 08/17/18 07:13 Dose: 200 mls/hr Documented by: Propofol (Diprivan 10 Mg/Ml) 1,000 mg in 100 mls @ 5.1 mls/hr IV TITR REJI; Protocol Dopamine HCl/Dextrose (Intropin Drip 800 Mg/D5w 250 Ml) 800 mg in 250 mls @ 3.563 mls/hr IV TITR REJI; Protocol Last Titration: 08/17/18 13:29 Dose: 20 mcg/kg/min, 35.625 mls/hr Documented by: Norepinephrine (Levophed Drip 4 Mg/Ns 250 Ml) 4 mg in 250 mls @ 7.5 mls/hr IV TITR REJI; Protocol Multi-Ingred Cream/Lotion/Oil/Oint (Artificial Tears Ophth Oint) 1 applic OU Q4HR PRN PRN Reason: Dry Eye(s) Ondansetron HCl (Zofran) 4 mg IV Q8H PRN PRN Reason: Nausea And Vomiting Last Admin: 08/17/18 04:32 Dose: 4 mg Documented by: Sodium Chloride (Sodium Chloride Flush Syringe 10 Ml) 10 ml IV BID REJI Last Admin: 08/17/18 13:38 Dose: 10 ml Documented by: Sodium Chloride (Sodium Chloride Flush Syringe 10 Ml) 10 ml IV PRN PRN PRN Reason: LINE FLUSH medications reviewed/updated as required Review of Systems - Review of Systems ROS unobtainable: due to endotracheal tube, due to mental status Exam - Constitutional Vital Signs: Temp Pulse Resp BP Pulse Ox 98.3 F 90 19 77/34 84 08/17/18 00:03 08/17/18 13:25 08/17/18 13:25 08/17/18 13:11 08/17/18 13:11 General appearance: other (unresponsive, intubated on pressor support) - EENT Eyes: scleral icterus ENT: other (+ETT) - Respiratory Respiratory effort: other (Agonal breathing) Respiratory: bilateral: diminished - Cardiovascular Rhythm: regular Extremity abnormal: other (Anasarca) - Gastrointestinal General gastrointestinal: Present: soft, distended (ascites), hypoactive bowel sounds - Integumentary Integumentary: Present: jaundice - Labs CBC & Chem 7: 08/17/18 00:30 08/17/18 00:30 Lab Results: Laboratory Results - last 24 hr 08/17/18 08/17/18 08/17/18 00:30 00:30 00:30 WBC 4.0 L RBC 2.78 L Hgb 11.9 Hct 34.1 L MCV 123 H MCH 43 H MCHC 35 H RDW 22.4 H Plt Count 52 L Add Manual Diff Complete Total Counted 100 Seg Neuts % (Manual) 12.0 L Band Neutrophils % 87.0 Lymphocytes % (Manual) 1.0 L Reactive Lymphs % (Man) 0 Monocytes % (Manual) 0 Eosinophils % (Manual) 0 Basophils % (Manual) 0 Metamyelocytes % 0 Myelocytes % 0 Promyelocytes % 0 Blast Cells % 0 Nucleated RBC % Not Reportable Seg Neutrophils # Man 0.5 L Band Neutrophils # 3.5 Lymphocytes # (Manual) 0.0 L Abs React Lymphs (Man) 0.0 Monocytes # (Manual) 0.0 Eosinophils # (Manual) 0.0 Basophils # (Manual) 0.0 Metamyelocytes # 0.0 Myelocytes # 0.0 Promyelocytes # 0.0 Blast Cells # 0.0 WBC Morphology Not Reportable Hypersegmented Neuts Not Reportable Hyposegmented Neuts Not Reportable Hypogranular Neuts Not Reportable Smudge Cells Not Reportable Toxic Granulation Not Reportable Toxic Vacuolation Not Reportable Dohle Bodies Not Reportable Pelger-Huet Anomaly Not Reportable Jose Rods Not Reportable Platelet Estimate Consistent w auto Clumped Platelets Not Reportable Plt Clumps, EDTA Not Reportable Large Platelets Not Reportable Giant Platelets Not Reportable Platelet Satelliting Not Reportable Plt Morphology Comment Not Reportable RBC Morphology Not Reportable Dimorphic RBCs Not Reportable Polychromasia 1+ Hypochromasia Not Reportable Poikilocytosis Not Reportable Anisocytosis 2+ Microcytosis Not Reportable Macrocytosis 1+ Spherocytes Not Reportable Pappenheimer Bodies Not Reportable Sickle Cells Not Reportable Target Cells Not Reportable Tear Drop Cells Not Reportable Ovalocytes Not Reportable Helmet Cells Not Reportable [place]in Bodies Not Reportable [place] Rings Not Reportable [place] Cells Not Reportable Bite Cells Not Reportable Crenated Cell Not Reportable Elliptocytes Not Reportable Acanthocytes (Spur) Not Reportable Rouleaux Not Reportable Hemoglobin C Crystals Not Reportable Schistocytes Not Reportable Malaria parasites Not Reportable Kush Bodies Not Reportable Hem Pathologist Commnt No PT 34.2 H INR 3.11 H APTT 47.6 H POC ABG pH POC ABG pCO2 POC ABG pO2 POC ABG HCO3 POC ABG Total CO2 POC ABG O2 Sat POC ABG Base Excess FiO2 Sodium 120 L Potassium 3.3 L Chloride 74.5 L Carbon Dioxide 13 L Anion Gap 36 BUN 7 L Creatinine 1.7 H Estimated GFR 43 BUN/Creatinine Ratio 4 Glucose 62 L Lactic Acid Calcium 7.6 L Magnesium Total Bilirubin Direct Bilirubin Indirect Bilirubin AST ALT Alkaline Phosphatase Ammonia Troponin T Total Protein Albumin Albumin/Globulin Ratio Urine Color Urine Turbidity Urine pH Ur Specific [place] Urine Protein Urine Glucose (UA) Urine Ketones Urine Blood Urine Nitrite Urine Bilirubin Urine Ictotest Urine Urobilinogen Ur Leukocyte Esterase Urine WBC (Auto) Urine RBC (Auto) U Epithel Cells (Auto) Urine Bacteria (Auto) Amorphous Crystals Hyaline Casts Granular Casts Urine Mucus Plasma/Serum Alcohol 08/17/18 08/17/18 08/17/18 00:30 00:30 00:30 WBC RBC Hgb Hct MCV MCH MCHC RDW Plt Count Add Manual Diff Total Counted Seg Neuts % (Manual) Band Neutrophils % Lymphocytes % (Manual) Reactive Lymphs % (Man) Monocytes % (Manual) Eosinophils % (Manual) Basophils % (Manual) Metamyelocytes % Myelocytes % Promyelocytes % Blast Cells % Nucleated RBC % Seg Neutrophils # Man Band Neutrophils # Lymphocytes # (Manual) Abs React Lymphs (Man) Monocytes # (Manual) Eosinophils # (Manual) Basophils # (Manual) Metamyelocytes # Myelocytes # Promyelocytes # Blast Cells # WBC Morphology Hypersegmented Neuts Hyposegmented Neuts Hypogranular Neuts Smudge Cells Toxic Granulation Toxic Vacuolation Dohle Bodies Pelger-Huet Anomaly Jose Rods Platelet Estimate Clumped Platelets Plt Clumps, EDTA Large Platelets Giant Platelets Platelet Satelliting Plt Morphology Comment RBC Morphology Dimorphic RBCs Polychromasia Hypochromasia Poikilocytosis Anisocytosis Microcytosis Macrocytosis Spherocytes Pappenheimer Bodies Sickle Cells Target Cells Tear Drop Cells Ovalocytes Helmet Cells Watts-[place]in Bodies [place] Rings [place] Cells Bite Cells Crenated Cell Elliptocytes Acanthocytes (Spur) Rouleaux Hemoglobin C Crystals Schistocytes Malaria parasites Kush Bodies Hem Pathologist Commnt PT INR APTT POC ABG pH POC ABG pCO2 POC ABG pO2 POC ABG HCO3 POC ABG Total CO2 POC ABG O2 Sat POC ABG Base Excess FiO2 Sodium Potassium Chloride Carbon Dioxide Anion Gap BUN Creatinine Estimated GFR BUN/Creatinine Ratio Glucose Lactic Acid 16.80 H* Calcium Magnesium Total Bilirubin Direct Bilirubin Indirect Bilirubin AST ALT Alkaline Phosphatase Ammonia 197.0 H Troponin T Total Protein Albumin Albumin/Globulin Ratio Urine Color Urine Turbidity Urine pH Ur Specific [place] Urine Protein Urine Glucose (UA) Urine Ketones Urine Blood Urine Nitrite Urine Bilirubin Urine Ictotest Urine Urobilinogen Ur Leukocyte Esterase Urine WBC (Auto) Urine RBC (Auto) U Epithel Cells (Auto) Urine Bacteria (Auto) Amorphous Crystals Hyaline Casts Granular Casts Urine Mucus Plasma/Serum Alcohol < 0.01 08/17/18 08/17/18 08/17/18 00:30 01:53 02:00 WBC RBC Hgb Hct MCV MCH MCHC RDW Plt Count Add Manual Diff Total Counted Seg Neuts % (Manual) Band Neutrophils % Lymphocytes % (Manual) Reactive Lymphs % (Man) Monocytes % (Manual) Eosinophils % (Manual) Basophils % (Manual) Metamyelocytes % Myelocytes % Promyelocytes % Blast Cells % Nucleated RBC % Seg Neutrophils # Man Band Neutrophils # Lymphocytes # (Manual) Abs React Lymphs (Man) Monocytes # (Manual) Eosinophils # (Manual) Basophils # (Manual) Metamyelocytes # Myelocytes # Promyelocytes # Blast Cells # WBC Morphology Hypersegmented Neuts Hyposegmented Neuts Hypogranular Neuts Smudge Cells Toxic Granulation Toxic Vacuolation Dohle Bodies Pelger-Huet Anomaly Jose Rods Platelet Estimate Clumped Platelets Plt Clumps, EDTA Large Platelets Giant Platelets Platelet Satelliting Plt Morphology Comment RBC Morphology Dimorphic RBCs Polychromasia Hypochromasia Poikilocytosis Anisocytosis Microcytosis Macrocytosis Spherocytes Pappenheimer Bodies Sickle Cells Target Cells Tear Drop Cells Ovalocytes Helmet Cells Watts-[place]in Bodies [place] Rings [place] Cells Bite Cells Crenated Cell Elliptocytes Acanthocytes (Spur) Rouleaux Hemoglobin C Crystals Schistocytes Malaria parasites Kush Bodies Hem Pathologist Commnt PT INR APTT POC ABG pH POC ABG pCO2 POC ABG pO2 POC ABG HCO3 POC ABG Total CO2 POC ABG O2 Sat POC ABG Base Excess FiO2 Sodium Potassium Chloride Carbon Dioxide Anion Gap BUN Creatinine Estimated GFR BUN/Creatinine Ratio Glucose Lactic Acid 16.60 H* Calcium Magnesium Total Bilirubin 13.40 H Direct Bilirubin 7.2 H Indirect Bilirubin 6.2 AST 98 H ALT 31 Alkaline Phosphatase 71 Ammonia Troponin T Total Protein 6.6 Albumin 1.8 L Albumin/Globulin Ratio 0.4 Urine Color Red Urine Turbidity Cloudy Urine pH 5.0 Ur Specific [place] 1.013 Urine Protein 30 mg/dl Urine Glucose (UA) Neg Urine Ketones Neg Urine Blood Lg Urine Nitrite Neg Urine Bilirubin Sm Urine Ictotest Positive Urine Urobilinogen 4.0 Ur Leukocyte Esterase Neg Urine WBC (Auto) 7.0 H Urine RBC (Auto) 11.0 U Epithel Cells (Auto) 1.0 Urine Bacteria (Auto) 2+ Amorphous Crystals 2+ Hyaline Casts 7 Granular Casts 10 Urine Mucus 3+ Plasma/Serum Alcohol 08/17/18 08/17/18 08/17/18 03:23 03:23 04:21 WBC RBC Hgb Hct MCV MCH MCHC RDW Plt Count Add Manual Diff Total Counted Seg Neuts % (Manual) Band Neutrophils % Lymphocytes % (Manual) Reactive Lymphs % (Man) Monocytes % (Manual) Eosinophils % (Manual) Basophils % (Manual) Metamyelocytes % Myelocytes % Promyelocytes % Blast Cells % Nucleated RBC % Seg Neutrophils # Man Band Neutrophils # Lymphocytes # (Manual) Abs React Lymphs (Man) Monocytes # (Manual) Eosinophils # (Manual) Basophils # (Manual) Metamyelocytes # Myelocytes # Promyelocytes # Blast Cells # WBC Morphology Hypersegmented Neuts Hyposegmented Neuts Hypogranular Neuts Smudge Cells Toxic Granulation Toxic Vacuolation Dohle Bodies Pelger-Huet Anomaly Jose Rods Platelet Estimate Clumped Platelets Plt Clumps, EDTA Large Platelets Giant Platelets Platelet Satelliting Plt Morphology Comment RBC Morphology Dimorphic RBCs Polychromasia Hypochromasia Poikilocytosis Anisocytosis Microcytosis Macrocytosis Spherocytes Pappenheimer Bodies Sickle Cells Target Cells Tear Drop Cells Ovalocytes Helmet Cells Watts-[place]in Bodies [place] Cells Bite Cells Crenated Cell Elliptocytes Acanthocytes (Spur) Rouleaux Hemoglobin C Crystals Schistocytes Malaria parasites Kush Bodies Hem Pathologist Commnt PT INR APTT POC ABG pH 7.293 L POC ABG pCO2 POC ABG pO2 66 L POC ABG HCO3 12.5 POC ABG Total CO2 13 POC ABG O2 Sat 91 POC ABG Base Excess -14 FiO2 40 Sodium Potassium Chloride Carbon Dioxide Anion Gap BUN Creatinine Estimated GFR BUN/Creatinine Ratio Glucose Lactic Acid 16.50 H* Calcium Magnesium 1.50 L Total Bilirubin Direct Bilirubin Indirect Bilirubin AST ALT Alkaline Phosphatase Ammonia Troponin T Total Protein Albumin Albumin/Globulin Ratio Urine Color Urine Turbidity Urine pH Ur Specific [place] Urine Protein Urine Glucose (UA) Urine Ketones Urine Blood Urine Nitrite Urine Bilirubin Urine Ictotest Urine Urobilinogen Ur Leukocyte Esterase Urine WBC (Auto) Urine RBC (Auto) U Epithel Cells (Auto) Urine Bacteria (Auto) Amorphous Crystals Hyaline Casts Granular Casts Urine Mucus Plasma/Serum Alcohol 08/17/18 08/17/18 08/17/18 06:20 08:10 08:45 WBC RBC Hgb Hct MCV MCH MCHC RDW Plt Count Add Manual Diff Total Counted Seg Neuts % (Manual) Band Neutrophils % Lymphocytes % (Manual) Reactive Lymphs % (Man) Monocytes % (Manual) Eosinophils % (Manual) Basophils % (Manual) Metamyelocytes % Myelocytes % Promyelocytes % Blast Cells % Nucleated RBC % Seg Neutrophils # Man Band Neutrophils # Lymphocytes # (Manual) Abs React Lymphs (Man) Monocytes # (Manual) Eosinophils # (Manual) Basophils # (Manual) Metamyelocytes # Myelocytes # Promyelocytes # Blast Cells # WBC Morphology Hypersegmented Neuts Hyposegmented Neuts Hypogranular Neuts Smudge Cells Toxic Granulation Toxic Vacuolation Dohle Bodies Pelger-Huet Anomaly Jose Rods Platelet Estimate Clumped Platelets Plt Clumps, EDTA Large Platelets Giant Platelets Platelet Satelliting Plt Morphology Comment RBC Morphology Dimorphic RBCs Polychromasia Hypochromasia Poikilocytosis Anisocytosis Microcytosis Macrocytosis Spherocytes Pappenheimer Bodies Sickle Cells Target Cells Tear Drop Cells Ovalocytes Helmet Cells Watts-Orin Bodies [place] Rings [place] Cells Bite Cells Crenated Cell Elliptocytes Acanthocytes (Spur) Rouleaux Hemoglobin C Crystals Schistocytes Malaria parasites Kush Bodies Hem Pathologist Commnt PT INR APTT POC ABG pH 6.978 L POC ABG pCO2 58.4 H POC ABG pO2 72 L POC ABG HCO3 13.7 POC ABG Total CO2 15 POC ABG O2 Sat 82 POC ABG Base Excess -18 FiO2 100 Sodium Potassium Chloride Carbon Dioxide Anion Gap BUN Creatinine Estimated GFR BUN/Creatinine Ratio Glucose Lactic Acid 10.90 H* Calcium Magnesium Total Bilirubin Direct Bilirubin Indirect Bilirubin AST ALT Alkaline Phosphatase Ammonia Troponin T < 0.010 Total Protein Albumin Albumin/Globulin Ratio Urine Color Urine Turbidity Urine pH Ur Specific [place] Urine Protein Urine Glucose (UA) Urine Ketones Urine Blood Urine Nitrite Urine Bilirubin Urine Ictotest Urine Urobilinogen Ur Leukocyte Esterase Urine WBC (Auto) Urine RBC (Auto) U Epithel Cells (Auto) Urine Bacteria (Auto) Amorphous Crystals Hyaline Casts Granular Casts Urine Mucus Plasma/Serum Alcohol Assessment and Plan 1.acute liver failure/MSOF 2.acute hepatic encephalopathy 3.H/o chronic alcoholic liver disease/ETOH abuse 4.ascites 5.SIRS with lactic acidosis 6.ARF 7.hyponatremia 8.hypokalemia/hypomagnesemia 9.acute metabolic acidosis 10.s/p cardiac arrest -afebrile -WBC 4.0 -H/H 11.9/34.1 -plt 52, INR 3.11 -LFTs-T.edward 13.40, AST 98, ALT 31, alk phos 71 -ammonia 197 -paracentesis pending for ascites -etiology-patient with hx of chronic alcoholic liver disease -clinically, patient is critically ill. Currently unresponsive, intubated and on pressor support with continued hypotension. Prognosis poor. -MELD 34, DF >32 ; no recommendations for corticosteroids at this time due to sepsis, will start on trentol -continue lactulose and xifaxan -vit K challenge to check synthetic liver function -alcohol cessation-alcohol withdrawal protocol -electrolyte management per primary team -continue supportive care -further recommendations to follow <KATHERINE VERGARA R - Last Filed: 08/17/18 16:55> Medications and Allergies Active Meds: Active Medications Albumin Human (Alburx 25% (Albumin)) 12.5 gm IV Q8HR REJI Stop: 08/19/18 06:01 Albuterol/Ipratropium (Duoneb *Not For Prn Use*) 1 ampul IH TIDRT REJI Last Admin: 08/17/18 13:23 Dose: 1 ampul Documented by: Dextrose (D50w (25gm) Syringe) 50 ml IV PRN PRN PRN Reason: Hypoglycemia Hydrophilic Ointment (Vaseline Lip Therapy) 1 applic TP Q2HR PRN PRN Reason: Dry Lips Dextrose/Sodium Chloride (D5ns) 1,000 mls @ 100 mls/hr IV DIRECT REJI Last Admin: 08/17/18 04:32 Dose: 100 mls/hr Documented by: Ceftriaxone Sodium (Rocephin/Ns 2 Gm/100 Ml) 2 gm in 100 mls @ 200 mls/hr IV Q24H REJI; Protocol Last Admin: 08/17/18 07:13 Dose: 200 mls/hr Documented by: Propofol (Diprivan 10 Mg/Ml) 1,000 mg in 100 mls @ 5.1 mls/hr IV TITR REJI; Protocol Dopamine HCl/Dextrose (Intropin Drip 800 Mg/D5w 250 Ml) 800 mg in 250 mls @ 3.563 mls/hr IV TITR REJI; Protocol Last Titration: 08/17/18 13:29 Dose: 20 mcg/kg/min, 35.625 mls/hr Documented by: Norepinephrine (Levophed Drip 4 Mg/Ns 250 Ml) 4 mg in 250 mls @ 7.5 mls/hr IV TITR REJI; Protocol Last Titration: 08/17/18 16:38 Dose: 4 mcg/min, 15 mls/hr Documented by: Vasopressin 20 unit/ Sodium (Chloride) 101 mls @ 9.09 mls/hr IV TITR REJI; Protocol Last Admin: 08/17/18 16:10 Dose: 0.03 units/min, 9.09 mls/hr Documented by: Sodium Bicarbonate 150 meq/ (Dextrose) 1,150 mls @ 125 mls/hr IV DIRECT REJI Stop: 08/20/18 01:11 Last Admin: 08/17/18 16:12 Dose: 125 mls/hr Documented by: Potassium Chloride (Kcl 20meq/100ml) 20 meq in 100 mls @ 100 mls/hr IV ONCE ONE Stop: 08/17/18 17:59 Multi-Ingred Cream/Lotion/Oil/Oint (Artificial Tears Ophth Oint) 1 applic OU Q4HR PRN PRN Reason: Dry Eye(s) Ondansetron HCl (Zofran) 4 mg IV Q8H PRN PRN Reason: Nausea And Vomiting Last Admin: 08/17/18 04:32 Dose: 4 mg Documented by: Pentoxifylline (Trental) 400 mg PO Q8HR REJI Sodium Chloride (Sodium Chloride Flush Syringe 10 Ml) 10 ml IV BID REJI Last Admin: 08/17/18 13:38 Dose: 10 ml Documented by: Sodium Chloride (Sodium Chloride Flush Syringe 10 Ml) 10 ml IV PRN PRN PRN Reason: LINE FLUSH Exam - Constitutional Vital Signs: Temp Pulse Resp BP Pulse Ox 98.3 F 93 H 22 83/40 100 08/17/18 00:03 08/17/18 16:16 08/17/18 16:16 08/17/18 16:16 08/17/18 16:16 - Labs CBC & Chem 7: 08/17/18 00:30 08/17/18 00:30 Lab Results: Laboratory Results - last 24 hr 08/17/18 08/17/18 08/17/18 00:30 00:30 00:30 WBC 4.0 L RBC 2.78 L Hgb 11.9 Hct 34.1 L MCV 123 H MCH 43 H MCHC 35 H RDW 22.4 H Plt Count 52 L Add Manual Diff Complete Total Counted 100 Seg Neuts % (Manual) 12.0 L Band Neutrophils % 87.0 Lymphocytes % (Manual) 1.0 L Reactive Lymphs % (Man) 0 Monocytes % (Manual) 0 Eosinophils % (Manual) 0 Basophils % (Manual) 0 Metamyelocytes % 0 Myelocytes % 0 Promyelocytes % 0 Blast Cells % 0 Nucleated RBC % Not Reportable Seg Neutrophils # Man 0.5 L Band Neutrophils # 3.5 Lymphocytes # (Manual) 0.0 L Abs React Lymphs (Man) 0.0 Monocytes # (Manual) 0.0 Eosinophils # (Manual) 0.0 Basophils # (Manual) 0.0 Metamyelocytes # 0.0 Myelocytes # 0.0 Promyelocytes # 0.0 Blast Cells # 0.0 WBC Morphology Not Reportable Hypersegmented Neuts Not Reportable Hyposegmented Neuts Not Reportable Hypogranular Neuts Not Reportable Smudge Cells Not Reportable Toxic Granulation Not Reportable Toxic Vacuolation Not Reportable Dohle Bodies Not Reportable Pelger-Huet Anomaly Not Reportable Jose Rods Not Reportable Platelet Estimate Consistent w auto Clumped Platelets Not Reportable Plt Clumps, EDTA Not Reportable Large Platelets Not Reportable Giant Platelets Not Reportable Platelet Satelliting Not Reportable Plt Morphology Comment Not Reportable RBC Morphology Not Reportable Dimorphic RBCs Not Reportable Polychromasia 1+ Hypochromasia Not Reportable Poikilocytosis Not Reportable Anisocytosis 2+ Microcytosis Not Reportable Macrocytosis 1+ Spherocytes Not Reportable Pappenheimer Bodies Not Reportable Sickle Cells Not Reportable Target Cells Not Reportable Tear Drop Cells Not Reportable Ovalocytes Not Reportable Helmet Cells Not Reportable Watts-[place]in Bodies Not Reportable [place] Rings Not Reportable [place] Cells Not Reportable Bite Cells Not Reportable Crenated Cell Not Reportable Elliptocytes Not Reportable Acanthocytes (Spur) Not Reportable Rouleaux Not Reportable Hemoglobin C Crystals Not Reportable Schistocytes Not Reportable Malaria parasites Not Reportable Kush Bodies Not Reportable Hem Pathologist Commnt No PT 34.2 H INR 3.11 H APTT 47.6 H POC ABG pH POC ABG pCO2 POC ABG pO2 POC ABG HCO3 POC ABG Total CO2 POC ABG O2 Sat POC ABG Base Excess FiO2 Sodium 120 L Potassium 3.3 L Chloride 74.5 L Carbon Dioxide 13 L Anion Gap 36 BUN 7 L Creatinine 1.7 H Estimated GFR 43 BUN/Creatinine Ratio 4 Glucose 62 L Lactic Acid Calcium 7.6 L Magnesium Total Bilirubin Direct Bilirubin Indirect Bilirubin AST ALT Alkaline Phosphatase Ammonia Troponin T C-Reactive Protein Total Protein Albumin Albumin/Globulin Ratio Urine Color Urine Turbidity Urine pH Ur Specific [place] Urine Protein Urine Glucose (UA) Urine Ketones Urine Blood Urine Nitrite Urine Bilirubin Urine Ictotest Urine Urobilinogen Ur Leukocyte Esterase Urine WBC (Auto) Urine RBC (Auto) U Epithel Cells (Auto) Urine Bacteria (Auto) Amorphous Crystals Hyaline Casts Granular Casts Urine Mucus Plasma/Serum Alcohol 08/17/18 08/17/18 08/17/18 00:30 00:30 00:30 WBC RBC Hgb Hct MCV MCH MCHC RDW Plt Count Add Manual Diff Total Counted Seg Neuts % (Manual) Band Neutrophils % Lymphocytes % (Manual) Reactive Lymphs % (Man) Monocytes % (Manual) Eosinophils % (Manual) Basophils % (Manual) Metamyelocytes % Myelocytes % Promyelocytes % Blast Cells % Nucleated RBC % Seg Neutrophils # Man Band Neutrophils # Lymphocytes # (Manual) Abs React Lymphs (Man) Monocytes # (Manual) Eosinophils # (Manual) Basophils # (Manual) Metamyelocytes # Myelocytes # Promyelocytes # Blast Cells # WBC Morphology Hypersegmented Neuts Hyposegmented Neuts Hypogranular Neuts Smudge Cells Toxic Granulation Toxic Vacuolation Dohle Bodies Pelger-Huet Anomaly Jose Rods Platelet Estimate Clumped Platelets Plt Clumps, EDTA Large Platelets Giant Platelets Platelet Satelliting Plt Morphology Comment RBC Morphology Dimorphic RBCs Polychromasia Hypochromasia Poikilocytosis Anisocytosis Microcytosis Macrocytosis Spherocytes Pappenheimer Bodies Sickle Cells Target Cells Tear Drop Cells Ovalocytes Helmet Cells Watts-[place]in Bodies [place] Rings [place] Cells Bite Cells Crenated Cell Elliptocytes Acanthocytes (Spur) Rouleaux Hemoglobin C Crystals Schistocytes Malaria parasites Kush Bodies Hem Pathologist Commnt PT INR APTT POC ABG pH POC ABG pCO2 POC ABG pO2 POC ABG HCO3 POC ABG Total CO2 POC ABG O2 Sat POC ABG Base Excess FiO2 Sodium Potassium Chloride Carbon Dioxide Anion Gap BUN Creatinine Estimated GFR BUN/Creatinine Ratio Glucose Lactic Acid 16.80 H* Calcium Magnesium Total Bilirubin Direct Bilirubin Indirect Bilirubin AST ALT Alkaline Phosphatase Ammonia 197.0 H Troponin T C-Reactive Protein Total Protein Albumin Albumin/Globulin Ratio Urine Color Urine Turbidity Urine pH Ur Specific [place] Urine Protein Urine Glucose (UA) Urine Ketones Urine Blood Urine Nitrite Urine Bilirubin Urine Ictotest Urine Urobilinogen Ur Leukocyte Esterase Urine WBC (Auto) Urine RBC (Auto) U Epithel Cells (Auto) Urine Bacteria (Auto) Amorphous Crystals Hyaline Casts Granular Casts Urine Mucus Plasma/Serum Alcohol < 0.01 08/17/18 08/17/18 08/17/18 00:30 01:53 02:00 WBC RBC Hgb Hct MCV MCH MCHC RDW Plt Count Add Manual Diff Total Counted Seg Neuts % (Manual) Band Neutrophils % Lymphocytes % (Manual) Reactive Lymphs % (Man) Monocytes % (Manual) Eosinophils % (Manual) Basophils % (Manual) Metamyelocytes % Myelocytes % Promyelocytes % Blast Cells % Nucleated RBC % Seg Neutrophils # Man Band Neutrophils # Lymphocytes # (Manual) Abs React Lymphs (Man) Monocytes # (Manual) Eosinophils # (Manual) Basophils # (Manual) Metamyelocytes # Myelocytes # Promyelocytes # Blast Cells # WBC Morphology Hypersegmented Neuts Hyposegmented Neuts Hypogranular Neuts Smudge Cells Toxic Granulation Toxic Vacuolation Dohle Bodies Pelger-Huet Anomaly Jose Rods Platelet Estimate Clumped Platelets Plt Clumps, EDTA Large Platelets Giant Platelets Platelet Satelliting Plt Morphology Comment RBC Morphology Dimorphic RBCs Polychromasia Hypochromasia Poikilocytosis Anisocytosis Microcytosis Macrocytosis Spherocytes Pappenheimer Bodies Sickle Cells Target Cells Tear Drop Cells Ovalocytes Helmet Cells Watts-Orin Bodies [place] Cells Bite Cells Crenated Cell Elliptocytes Acanthocytes (Spur) Rouleaux Hemoglobin C Crystals Schistocytes Malaria parasites Kush Bodies Hem Pathologist Commnt PT INR APTT POC ABG pH POC ABG pCO2 POC ABG pO2 POC ABG HCO3 POC ABG Total CO2 POC ABG O2 Sat POC ABG Base Excess FiO2 Sodium Potassium Chloride Carbon Dioxide Anion Gap BUN Creatinine Estimated GFR BUN/Creatinine Ratio Glucose Lactic Acid 16.60 H* Calcium Magnesium Total Bilirubin 13.40 H Direct Bilirubin 7.2 H Indirect Bilirubin 6.2 AST 98 H ALT 31 Alkaline Phosphatase 71 Ammonia Troponin T C-Reactive Protein Total Protein 6.6 Albumin 1.8 L Albumin/Globulin Ratio 0.4 Urine Color Red Urine Turbidity Cloudy Urine pH 5.0 Ur Specific [place] 1.013 Urine Protein 30 mg/dl Urine Glucose (UA) Neg Urine Ketones Neg Urine Blood Lg Urine Nitrite Neg Urine Bilirubin Sm Urine Ictotest Positive Urine Urobilinogen 4.0 Ur Leukocyte Esterase Neg Urine WBC (Auto) 7.0 H Urine RBC (Auto) 11.0 U Epithel Cells (Auto) 1.0 Urine Bacteria (Auto) 2+ Amorphous Crystals 2+ Hyaline Casts 7 Granular Casts 10 Urine Mucus 3+ Plasma/Serum Alcohol 08/17/18 08/17/18 08/17/18 03:23 03:23 04:21 WBC RBC Hgb Hct MCV MCH MCHC RDW Plt Count Add Manual Diff Total Counted Seg Neuts % (Manual) Band Neutrophils % Lymphocytes % (Manual) Reactive Lymphs % (Man) Monocytes % (Manual) Eosinophils % (Manual) Basophils % (Manual) Metamyelocytes % Myelocytes % Promyelocytes % Blast Cells % Nucleated RBC % Seg Neutrophils # Man Band Neutrophils # Lymphocytes # (Manual) Abs React Lymphs (Man) Monocytes # (Manual) Eosinophils # (Manual) Basophils # (Manual) Metamyelocytes # Myelocytes # Promyelocytes # Blast Cells # WBC Morphology Hypersegmented Neuts Hyposegmented Neuts Hypogranular Neuts Smudge Cells Toxic Granulation Toxic Vacuolation Dohle Bodies Pelger-Huet Anomaly Jose Rods Platelet Estimate Clumped Platelets Plt Clumps, EDTA Large Platelets Giant Platelets Platelet Satelliting Plt Morphology Comment RBC Morphology Dimorphic RBCs Polychromasia Hypochromasia Poikilocytosis Anisocytosis Microcytosis Macrocytosis Spherocytes Pappenheimer Bodies Sickle Cells Target Cells Tear Drop Cells Ovalocytes Helmet Cells [place]in Bodies [place] Cells Bite Cells Crenated Cell Elliptocytes Acanthocytes (Spur) Rouleaux Hemoglobin C Crystals Schistocytes Malaria parasites Kush Bodies Hem Pathologist Commnt PT INR APTT POC ABG pH 7.293 L POC ABG pCO2 POC ABG pO2 66 L POC ABG HCO3 12.5 POC ABG Total CO2 13 POC ABG O2 Sat 91 POC ABG Base Excess -14 FiO2 40 Sodium Potassium Chloride Carbon Dioxide Anion Gap BUN Creatinine Estimated GFR BUN/Creatinine Ratio Glucose Lactic Acid 16.50 H* Calcium Magnesium 1.50 L Total Bilirubin Direct Bilirubin Indirect Bilirubin AST ALT Alkaline Phosphatase Ammonia Troponin T C-Reactive Protein Total Protein Albumin Albumin/Globulin Ratio Urine Color Urine Turbidity Urine pH Ur Specific [place] Urine Protein Urine Glucose (UA) Urine Ketones Urine Blood Urine Nitrite Urine Bilirubin Urine Ictotest Urine Urobilinogen Ur Leukocyte Esterase Urine WBC (Auto) Urine RBC (Auto) U Epithel Cells (Auto) Urine Bacteria (Auto) Amorphous Crystals Hyaline Casts Granular Casts Urine Mucus Plasma/Serum Alcohol 08/17/18 08/17/18 08/17/18 06:20 08:10 08:45 WBC RBC Hgb Hct MCV MCH MCHC RDW Plt Count Add Manual Diff Total Counted Seg Neuts % (Manual) Band Neutrophils % Lymphocytes % (Manual) Reactive Lymphs % (Man) Monocytes % (Manual) Eosinophils % (Manual) Basophils % (Manual) Metamyelocytes % Myelocytes % Promyelocytes % Blast Cells % Nucleated RBC % Seg Neutrophils # Man Band Neutrophils # Lymphocytes # (Manual) Abs React Lymphs (Man) Monocytes # (Manual) Eosinophils # (Manual) Basophils # (Manual) Metamyelocytes # Myelocytes # Promyelocytes # Blast Cells # WBC Morphology Hypersegmented Neuts Hyposegmented Neuts Hypogranular Neuts Smudge Cells Toxic Granulation Toxic Vacuolation Dohle Bodies Pelger-Huet Anomaly Jose Rods Platelet Estimate Clumped Platelets Plt Clumps, EDTA Large Platelets Giant Platelets Platelet Satelliting Plt Morphology Comment RBC Morphology Dimorphic RBCs Polychromasia Hypochromasia Poikilocytosis Anisocytosis Microcytosis Macrocytosis Spherocytes Pappenheimer Bodies Sickle Cells Target Cells Tear Drop Cells Ovalocytes Helmet Cells Watts-[place]in Bodies [place] Rings [place] Cells Bite Cells Crenated Cell Elliptocytes Acanthocytes (Spur) Rouleaux Hemoglobin C Crystals Schistocytes Malaria parasites Kush Bodies Hem Pathologist Commnt PT INR APTT POC ABG pH 6.978 L POC ABG pCO2 58.4 H POC ABG pO2 72 L POC ABG HCO3 13.7 POC ABG Total CO2 15 POC ABG O2 Sat 82 POC ABG Base Excess -18 FiO2 100 Sodium Potassium Chloride Carbon Dioxide Anion Gap BUN Creatinine Estimated GFR BUN/Creatinine Ratio Glucose Lactic Acid 10.90 H* Calcium Magnesium Total Bilirubin Direct Bilirubin Indirect Bilirubin AST ALT Alkaline Phosphatase Ammonia Troponin T < 0.010 C-Reactive Protein Total Protein Albumin Albumin/Globulin Ratio Urine Color Urine Turbidity Urine pH Ur Specific [place] Urine Protein Urine Glucose (UA) Urine Ketones Urine Blood Urine Nitrite Urine Bilirubin Urine Ictotest Urine Urobilinogen Ur Leukocyte Esterase Urine WBC (Auto) Urine RBC (Auto) U Epithel Cells (Auto) Urine Bacteria (Auto) Amorphous Crystals Hyaline Casts Granular Casts Urine Mucus Plasma/Serum Alcohol 08/17/18 08/17/18 08/17/18 15:16 15:16 15:16 WBC RBC Hgb Hct MCV MCH MCHC RDW Plt Count Add Manual Diff Total Counted Seg Neuts % (Manual) Band Neutrophils % Lymphocytes % (Manual) Reactive Lymphs % (Man) Monocytes % (Manual) Eosinophils % (Manual) Basophils % (Manual) Metamyelocytes % Myelocytes % Promyelocytes % Blast Cells % Nucleated RBC % Seg Neutrophils # Man Band Neutrophils # Lymphocytes # (Manual) Abs React Lymphs (Man) Monocytes # (Manual) Eosinophils # (Manual) Basophils # (Manual) Metamyelocytes # Myelocytes # Promyelocytes # Blast Cells # WBC Morphology Hypersegmented Neuts Hyposegmented Neuts Hypogranular Neuts Smudge Cells Toxic Granulation Toxic Vacuolation Dohle Bodies Pelger-Huet Anomaly Jose Rods Platelet Estimate Clumped Platelets Plt Clumps, EDTA Large Platelets Giant Platelets Platelet Satelliting Plt Morphology Comment RBC Morphology Dimorphic RBCs Polychromasia Hypochromasia Poikilocytosis Anisocytosis Microcytosis Macrocytosis Spherocytes Pappenheimer Bodies Sickle Cells Target Cells Tear Drop Cells Ovalocytes Helmet Cells Watts-[place]in Bodies [place] Cells Bite Cells Crenated Cell Elliptocytes Acanthocytes (Spur) Rouleaux Hemoglobin C Crystals Schistocytes Malaria parasites Kush Bodies Hem Pathologist Commnt PT INR APTT POC ABG pH POC ABG pCO2 POC ABG pO2 POC ABG HCO3 POC ABG Total CO2 POC ABG O2 Sat POC ABG Base Excess FiO2 Sodium Potassium Chloride Carbon Dioxide Anion Gap BUN Creatinine Estimated GFR BUN/Creatinine Ratio Glucose Lactic Acid 19.70 H* Calcium Magnesium Total Bilirubin Direct Bilirubin Indirect Bilirubin AST ALT Alkaline Phosphatase Ammonia 321.0 H Troponin T < 0.010 C-Reactive Protein Total Protein Albumin Albumin/Globulin Ratio Urine Color Urine Turbidity Urine pH Ur Specific [place] Urine Protein Urine Glucose (UA) Urine Ketones Urine Blood Urine Nitrite Urine Bilirubin Urine Ictotest Urine Urobilinogen Ur Leukocyte Esterase Urine WBC (Auto) Urine RBC (Auto) U Epithel Cells (Auto) Urine Bacteria (Auto) Amorphous Crystals Hyaline Casts Granular Casts Urine Mucus Plasma/Serum Alcohol 08/17/18 08/17/18 15:16 15:25 WBC RBC Hgb Hct MCV MCH MCHC RDW Plt Count Add Manual Diff Total Counted Seg Neuts % (Manual) Band Neutrophils % Lymphocytes % (Manual) Reactive Lymphs % (Man) Monocytes % (Manual) Eosinophils % (Manual) Basophils % (Manual) Metamyelocytes % Myelocytes % Promyelocytes % Blast Cells % Nucleated RBC % Seg Neutrophils # Man Band Neutrophils # Lymphocytes # (Manual) Abs React Lymphs (Man) Monocytes # (Manual) Eosinophils # (Manual) Basophils # (Manual) Metamyelocytes # Myelocytes # Promyelocytes # Blast Cells # WBC Morphology Hypersegmented Neuts Hyposegmented Neuts Hypogranular Neuts Smudge Cells Toxic Granulation Toxic Vacuolation Dohle Bodies Pelger-Huet Anomaly Jose Rods Platelet Estimate Clumped Platelets Plt Clumps, EDTA Large Platelets Giant Platelets Platelet Satelliting Plt Morphology Comment RBC Morphology Dimorphic RBCs Polychromasia Hypochromasia Poikilocytosis Anisocytosis Microcytosis Macrocytosis Spherocytes Pappenheimer Bodies Sickle Cells Target Cells Tear Drop Cells Ovalocytes Helmet Cells Watts-[place]in Bodies [place] Cells Bite Cells Crenated Cell Elliptocytes Acanthocytes (Spur) Rouleaux Hemoglobin C Crystals Schistocytes Malaria parasites Kush Bodies Hem Pathologist Commnt PT INR APTT POC ABG pH 7.191 L POC ABG pCO2 POC ABG pO2 85 POC ABG HCO3 8.7 POC ABG Total CO2 9 POC ABG O2 Sat 94 POC ABG Base Excess -19 FiO2 100 Sodium Potassium Chloride Carbon Dioxide Anion Gap BUN Creatinine Estimated GFR BUN/Creatinine Ratio Glucose Lactic Acid Calcium Magnesium Total Bilirubin Direct Bilirubin Indirect Bilirubin AST ALT Alkaline Phosphatase Ammonia Troponin T C-Reactive Protein 2.30 H Total Protein Albumin Albumin/Globulin Ratio Urine Color Urine Turbidity Urine pH Ur Specific [place] Urine Protein Urine Glucose (UA) Urine Ketones Urine Blood Urine Nitrite Urine Bilirubin Urine Ictotest Urine Urobilinogen Ur Leukocyte Esterase Urine WBC (Auto) Urine RBC (Auto) U Epithel Cells (Auto) Urine Bacteria (Auto) Amorphous Crystals Hyaline Casts Granular Casts Urine Mucus Plasma/Serum Alcohol Assessment and Plan Pt seen and examined. No family available. Pt unresponsive, intubated, and on pressors. No corneal reflexes. No evidence of active bleed. Will monitor. Prognosis dismal.
[2018-08-17] MEDS ORDERED: LEVOPHED DRIP 4 MG/NS 250 ML 4 MG/250 ML BAG IV ONE (14:44)
[2018-08-17] MEDS: LEVOPHED DRIP 4 MG/NS 250 ML 4 MG/250 ML BAG IV SCH (14:46)
[2018-08-17] MEDS ORDERED: CEPHULAC ONE (15:09)
--- NOTE | 2018-08-17 15:27 | Consultation ---
History of Present Illness Consult date: 08/17/18 Requesting physician: CHELE AMEZCUA Reason for consult: other (Acute Hypoxemic Resp Failure; S/P Cardiac Arrest; Severe Sepsis with Shock) History of present illness: PULMONARY/CCM CONSULT NOTE (Full dictation # [id number]) Please see dictated notes for full details Past History Past Medical History: liver disease Past Surgical History: No surgical history Social history: alcohol abuse (he stated that his last drink was about one week ago. He denies tobacco or illicit drug use) Family history: other (unable to obtain due to altered mental status) Medications and Allergies Allergies Allergy/AdvReac Type Severity Reaction Status Date / Time No Known Allergies Allergy Unverified 04/02/18 15:12 Home Medications Medication Instructions Recorded Confirmed Last Taken Type Folic Acid [Folvite] 1 mg PO QDAY #30 tablet 04/13/18 08/17/18 Unknown Rx Sertraline [Zoloft] 25 mg PO QDAY #15 tablet 04/13/18 08/17/18 Unknown Rx Thiamine [Vitamin B-1] 100 mg PO QDAY #30 tablet 04/13/18 08/17/18 Unknown Rx busPIRone [Buspar] 7.5 mg PO BID #30 tablet 04/13/18 08/17/18 Unknown Rx Active Meds: Active Medications Albuterol/Ipratropium (Duoneb *Not For Prn Use*) 1 ampul IH TIDRT REJI Last Admin: 08/17/18 13:23 Dose: 1 ampul Documented by: Dextrose (D50w (25gm) Syringe) 50 ml IV PRN PRN PRN Reason: Hypoglycemia Hydrophilic Ointment (Vaseline Lip Therapy) 1 applic TP Q2HR PRN PRN Reason: Dry Lips Dextrose/Sodium Chloride (D5ns) 1,000 mls @ 100 mls/hr IV DIRECT REJI Last Admin: 08/17/18 04:32 Dose: 100 mls/hr Documented by: Ceftriaxone Sodium (Rocephin/Ns 2 Gm/100 Ml) 2 gm in 100 mls @ 200 mls/hr IV Q24H REJI; Protocol Last Admin: 08/17/18 07:13 Dose: 200 mls/hr Documented by: Propofol (Diprivan 10 Mg/Ml) 1,000 mg in 100 mls @ 5.1 mls/hr IV TITR REJI; Protocol Dopamine HCl/Dextrose (Intropin Drip 800 Mg/D5w 250 Ml) 800 mg in 250 mls @ 3.563 mls/hr IV TITR REJI; Protocol Last Titration: 08/17/18 13:29 Dose: 20 mcg/kg/min, 35.625 mls/hr Documented by: Norepinephrine (Levophed Drip 4 Mg/Ns 250 Ml) 4 mg in 250 mls @ 7.5 mls/hr IV TITR REJI; Protocol Last Admin: 08/17/18 14:46 Dose: 2 mcg/min, 7.5 mls/hr Documented by: Phytonadione 10 mg/ Sodium (Chloride) 51 mls @ 100 mls/hr IV ONCE ONE Stop: 08/17/18 15:39 Vasopressin 20 unit/ Sodium (Chloride) 101 mls @ 9.09 mls/hr IV TITR REJI; Protocol Multi-Ingred Cream/Lotion/Oil/Oint (Artificial Tears Ophth Oint) 1 applic OU Q4HR PRN PRN Reason: Dry Eye(s) Ondansetron HCl (Zofran) 4 mg IV Q8H PRN PRN Reason: Nausea And Vomiting Last Admin: 08/17/18 04:32 Dose: 4 mg Documented by: Pentoxifylline (Trental) 400 mg PO Q8HR REJI Sodium Chloride (Sodium Chloride Flush Syringe 10 Ml) 10 ml IV BID REJI Last Admin: 08/17/18 13:38 Dose: 10 ml Documented by: Sodium Chloride (Sodium Chloride Flush Syringe 10 Ml) 10 ml IV PRN PRN PRN Reason: LINE FLUSH Physical Examination Vital signs: Vital Signs Pulse Resp BP Pulse Ox 95 H 19 187/83 92 08/16/18 23:25 08/16/18 23:25 08/16/18 23:25 08/16/18 23:25 Results - Laboratory Findings CBC and BMP: 08/17/18 00:30 08/17/18 00:30 ABG POC ABG pH 6.978 (7.35-7.45) L 08/17/18 08:10 POC ABG pCO2 58.4 (35-45) H 08/17/18 08:10 POC ABG pO2 72 (80-105) L 08/17/18 08:10 POC ABG HCO3 13.7 (22-26 mml/L) 08/17/18 08:10 POC ABG Total CO2 15 (23-27mmol/L) 08/17/18 08:10 POC ABG O2 Sat 82 08/17/18 08:10 PT/INR, D-dimer PT 34.2 Sec. (12.2-14.9) H 08/17/18 00:30 INR 3.11 (0.87-1.13) H 08/17/18 00:30 Abnormal lab findings: Abnormal Labs 08/17/18 08/17/18 08/17/18 00:30 00:30 00:30 WBC 4.0 L RBC 2.78 L Hct 34.1 L MCV 123 H MCH 43 H MCHC 35 H RDW 22.4 H Plt Count 52 L Seg Neuts % (Manual) 12.0 L Lymphocytes % (Manual) 1.0 L Seg Neutrophils # Man 0.5 L Lymphocytes # (Manual) 0.0 L PT 34.2 H INR 3.11 H APTT 47.6 H POC ABG pH POC ABG pCO2 POC ABG pO2 Sodium 120 L Potassium 3.3 L Chloride 74.5 L Carbon Dioxide 13 L BUN 7 L Creatinine 1.7 H Glucose 62 L Lactic Acid Calcium 7.6 L Magnesium Total Bilirubin Direct Bilirubin AST Ammonia Albumin Urine WBC (Auto) 08/17/18 08/17/18 08/17/18 00:30 00:30 00:30 WBC RBC Hct MCV MCH MCHC RDW Plt Count Seg Neuts % (Manual) Lymphocytes % (Manual) Seg Neutrophils # Man Lymphocytes # (Manual) PT INR APTT POC ABG pH POC ABG pCO2 POC ABG pO2 Sodium Potassium Chloride Carbon Dioxide BUN Creatinine Glucose Lactic Acid 16.80 H* Calcium Magnesium Total Bilirubin 13.40 H Direct Bilirubin 7.2 H AST 98 H Ammonia 197.0 H Albumin 1.8 L Urine WBC (Auto) 08/17/18 08/17/18 08/17/18 01:53 02:00 03:23 WBC RBC Hct MCV MCH MCHC RDW Plt Count Seg Neuts % (Manual) Lymphocytes % (Manual) Seg Neutrophils # Man Lymphocytes # (Manual) PT INR APTT POC ABG pH POC ABG pCO2 POC ABG pO2 Sodium Potassium Chloride Carbon Dioxide BUN Creatinine Glucose Lactic Acid 16.60 H* 16.50 H* Calcium Magnesium Total Bilirubin Direct Bilirubin AST Ammonia Albumin Urine WBC (Auto) 7.0 H 08/17/18 08/17/18 08/17/18 03:23 04:21 06:20 WBC RBC Hct MCV MCH MCHC RDW Plt Count Seg Neuts % (Manual) Lymphocytes % (Manual) Seg Neutrophils # Man Lymphocytes # (Manual) PT INR APTT POC ABG pH 7.293 L POC ABG pCO2 POC ABG pO2 66 L Sodium Potassium Chloride Carbon Dioxide BUN Creatinine Glucose Lactic Acid 10.90 H* Calcium Magnesium 1.50 L Total Bilirubin Direct Bilirubin AST Ammonia Albumin Urine WBC (Auto) 08/17/18 08:10 WBC RBC Hct MCV MCH MCHC RDW Plt Count Seg Neuts % (Manual) Lymphocytes % (Manual) Seg Neutrophils # Man Lymphocytes # (Manual) PT INR APTT POC ABG pH 6.978 L POC ABG pCO2 58.4 H POC ABG pO2 72 L Sodium Potassium Chloride Carbon Dioxide BUN Creatinine Glucose Lactic Acid Calcium Magnesium Total Bilirubin Direct Bilirubin AST Ammonia Albumin Urine WBC (Auto)
[2018-08-17] MEDS ORDERED: VITAMIN K (ADULT ONLY) 10 MG in NACL 0.9% 50 ML IV ONE (16:00)
[2018-08-17] MEDS: Vasostrict 20 UNIT in NACL 0.9% 100 ML IV SCH (16:10)
[2018-08-17] MEDS: SODIUM BICARBONATE 150 MEQ in D5W 1,000 ML IV SCH (16:12)
--- NOTE | 2018-08-17 16:16 | Consultation ---
History of Present Illness - Reason for Consult Consult date: 08/17/18 acute renal failure, metabolic acidosis Requesting physician: HEMANT HUGHES - History of Present Illness This is a 47yo CM with history of chronic alcoholic liver disease who was BIBEMS to ER for change of mental status from nearby hotel. Pt was was found to have jaundice, abdominal distention with generalized pain along with shortness of breath. While being worked up in ER pt went into PEA arrest, [facility] was called. He was emergently intubated and later successfully resuscitated. Pt r emains currently on dopamin 20mcg/min, levophed 2mcg along with vasopressin. Labs also showed elevate BUN/Cr at 7/1.7mg/dl (baseline Cr was 0.5mg/dl in the past), along with hyponatremia, hypokalemia, and severe metabolic acidosis with pH 6.9-7, for which renal consult is requested for evaluation of . Pt remains oligoanuric. Currently intubated, sedated, history obtained by chart review. Past History Past Medical History: liver disease Past Surgical History: No surgical history Social history: alcohol abuse (he stated that his last drink was about one week ago. He denies tobacco or illicit drug use) Family history: other (unable to obtain due to altered mental status) Medications and Allergies Allergies Allergy/AdvReac Type Severity Reaction Status Date / Time No Known Allergies Allergy Unverified 04/02/18 15:12 Home Medications Medication Instructions Recorded Confirmed Last Taken Type Folic Acid [Folvite] 1 mg PO QDAY #30 tablet 04/13/18 08/17/18 Unknown Rx Sertraline [Zoloft] 25 mg PO QDAY #15 tablet 04/13/18 08/17/18 Unknown Rx Thiamine [Vitamin B-1] 100 mg PO QDAY #30 tablet 04/13/18 08/17/18 Unknown Rx busPIRone [Buspar] 7.5 mg PO BID #30 tablet 04/13/18 08/17/18 Unknown Rx Active Meds: Active Medications Albumin Human (Alburx 25% (Albumin)) 12.5 gm IV Q8HR [facility] Stop: 08/19/18 06:01 Albuterol/Ipratropium (Duoneb *Not For Prn Use*) 1 ampul IH TIDRT [facility] Last Admin: 08/17/18 13:23 Dose: 1 ampul Documented by: Dextrose (D50w (25gm) Syringe) 50 ml IV PRN PRN PRN Reason: Hypoglycemia Hydrophilic Ointment (Vaseline Lip Therapy) 1 applic TP Q2HR PRN PRN Reason: Dry Lips Dextrose/Sodium Chloride (D5ns) 1,000 mls @ 100 mls/hr IV DIRECT REJI Last Admin: 08/17/18 04:32 Dose: 100 mls/hr Documented by: Ceftriaxone Sodium (Rocephin/Ns 2 Gm/100 Ml) 2 gm in 100 mls @ 200 mls/hr IV Q24H REJI; Protocol Last Admin: 08/17/18 07:13 Dose: 200 mls/hr Documented by: Propofol (Diprivan 10 Mg/Ml) 1,000 mg in 100 mls @ 5.1 mls/hr IV TITR REJI; Protocol Dopamine HCl/Dextrose (Intropin Drip 800 Mg/D5w 250 Ml) 800 mg in 250 mls @ 3.563 mls/hr IV TITR REJI; Protocol Last Titration: 08/17/18 13:29 Dose: 20 mcg/kg/min, 35.625 mls/hr Documented by: Norepinephrine (Levophed Drip 4 Mg/Ns 250 Ml) 4 mg in 250 mls @ 7.5 mls/hr IV TITR REJI; Protocol Last Admin: 08/17/18 14:46 Dose: 2 mcg/min, 7.5 mls/hr Documented by: Phytonadione 10 mg/ Sodium (Chloride) 51 mls @ 100 mls/hr IV ONCE ONE Stop: 08/17/18 16:30 Last Admin: 08/17/18 16:13 Dose: 100 mls/hr Documented by: Vasopressin 20 unit/ Sodium (Chloride) 101 mls @ 9.09 mls/hr IV TITR REJI; Protocol Last Admin: 08/17/18 16:10 Dose: 0.03 units/min, 9.09 mls/hr Documented by: Sodium Bicarbonate 150 meq/ (Dextrose) 1,150 mls @ 125 mls/hr IV DIRECT REJI Stop: 08/20/18 01:11 Last Admin: 08/17/18 16:12 Dose: 125 mls/hr Documented by: Multi-Ingred Cream/Lotion/Oil/Oint (Artificial Tears Ophth Oint) 1 applic OU Q4HR PRN PRN Reason: Dry Eye(s) Ondansetron HCl (Zofran) 4 mg IV Q8H PRN PRN Reason: Nausea And Vomiting Last Admin: 08/17/18 04:32 Dose: 4 mg Documented by: Pentoxifylline (Trental) 400 mg PO Q8HR REJI Sodium Chloride (Sodium Chloride Flush Syringe 10 Ml) 10 ml IV BID REJI Last Admin: 08/17/18 13:38 Dose: 10 ml Documented by: Sodium Chloride (Sodium Chloride Flush Syringe 10 Ml) 10 ml IV PRN PRN PRN Reason: LINE FLUSH Review of Systems ROS unobtainable: due to endotracheal tube, due to mental status Exam - Vital Signs Vital signs: Vital Signs Pulse Resp BP Pulse Ox 95 H 19 187/83 92 08/16/18 23:25 08/16/18 23:25 08/16/18 23:25 08/16/18 23:25 - General Appearance General appearance: chronically ill, sedated on ventilator, intubated, other (jaundiced ) EENT: ATNC, mucous membranes moist Neck: Present: neck supple Respiratory: Decreased Breath Sounds Heart: regular, S1S2 Gastrointestinal: Present: distended Integumentary: other (+ edema b/l LE ) Neurologic: other (intubated, sedated. ) Results - Lab Results 08/17/18 00:30 08/17/18 00:30 Most recent lab results Calcium 7.6 mg/dL (8.4-10.2) L 08/17/18 00:30 Magnesium 1.50 mg/dL (1.7-2.3) L 08/17/18 03:23 Assessment and Plan - Patient Problems (1) Acute tubular necrosis Current Visit: Yes Status: Acute Plan to address problem: FLORES due to ATN in the setting of circulatory shock/liver failure. underlying hepatorenal syndrome cannot be ruled out. cont supportive care for ATN, cont vasopressor support to maintain MAP > 65mmHg, agree with IV bicarb given severe metabolic acidosis. started albumin 12.5g q8hr, pt is already on levophe/vasopressin, for treatment of possible hepatorenal syndrome Pt is too hemodynamically unstable to tolerate renal replacement therapy at present. If pt remains oligoanuric/met acidosis refractory and hemodynamics improve will reassess indication for HD. Overall poor prognosis (2) Cardiogenic shock Current Visit: Yes Status: Acute Plan to address problem: cont vasopressor support to maintain MAP > 65mmhg (3) Encephalopathy Current Visit: Yes Status: Acute Plan to address problem: mostly secondary to hepatic encephalopathy, circulatory shock, uremic encephalpathy contributing. cont lactulose as per GI recs (4) Hepatic failure due to alcoholism Current Visit: Yes Status: Acute Plan to address problem: GI following (5) Lactic acidosis Current Visit: Yes Status: Acute Plan to address problem: due to circulatory shock. cont vasopressor support to maintain MAP > 65mmhg (6) Hypokalemia Current Visit: No Status: Acute Plan to address problem: Supplement with IV KCl 20meq. given concurrent treatment with lactulose/IV bicarb anticipate K to drop recheck K in 6hours and give additional KCl if K remains < 3.5.
[2018-08-17] MEDS: ALBURX 25% (ALBUMIN) IV SCH ×2 (16:53→23:13)
[2018-08-17] MEDS ORDERED: KCL 20MEQ/100ML 20 MEQ/100 ML BAG IV ONE (17:00)
[2018-08-17] MEDS: TRENTAL PO SCH ×2 (17:01→23:28)
[2018-08-17] MEDS ORDERED: INTROPIN DRIP 800 MG/D5W 250 ML 800 MG/250 ML BAG IV ONE (17:09)
[2018-08-17 17:42] LABS: Creatinine,Urine 215.1 mg/dL (0.1-20.0)
--- NOTE | 2018-08-17 18:15 | Vascular Lab Report ---
PROCEDURE: Bilateral lower extremity duplex venous ultrasound. TECHNIQUE: Routine imaging of the deep venous system was performed. This included Doppler spectral a nalysis and color flow imaging. HISTORY: Bilateral leg swelling. COMPARISONS: Right lower extremity duplex venous ultrasound 04/08/2018. FINDINGS: Right leg: The deep venous system is compressible. Flow is confirmed by Doppler evaluation and color imaging. There is normal augmentation of blood flow demonstrated. Left leg: The deep venous system is compressible. Flow is confirmed by Doppler evaluation and color i maging. There is normal augmentation of blood flow demonstrated. IMPRESSION: Normal studies. This document is electronically signed by Tyler Maloney MD., Aug 17 2018 06:13:24 PM ET
[2018-08-17] MEDS ORDERED: D50W (25GM) Syringe IV ONE ×2 (20:06→20:12)
[2018-08-18] MEDS: Vasostrict 20 UNIT in NACL 0.9% 100 ML IV SCH ×2 (00:02→12:24)
[2018-08-18] MEDS: INTROPIN DRIP 800 MG/D5W 250 ML 800 MG/250 ML BAG IV SCH ×3 (00:02→21:07)
--- NOTE | 2018-08-18 01:58 | Consultation ---
PULMONARY CRITICAL CARE CONSULTATION CONSULTING PHYSICIANS: Dr. Portillo. REASON FOR CONSULTATION: Acute respiratory failure, on mechanical ventilator support and decompensated liver failure. CHIEF COMPLAINT AND HISTORY OF PRESENT ILLNESS: As follows: The patient is a 47-year-old male with past medical history significant for chronic alcoholic liver disease, who was brought into the Emergency Room due to confusion. When he showed up, he told the physicians, he has not slept for a few days. He had significant abdominal distention. He was clinically jaundiced and short of breath. It seems like he decompensated rapidly. A code blue was called. He was intubated, resuscitated and we are asked to assist with management. When I stopped by to see him, he was on mechanical ventilator. He still had spontaneous breath, his breathing over the set rate of 30 about 5-6 times, not on any sedation. He was hypotensive. He will remain jaundice. There was no gross bleeding that was obvious. No reported seizure activity. No reported trauma. Tobacco use/abuse history is unknown. This really is as much of the history of presentation as I have. PAST MEDICAL HISTORY: Alcoholic liver disease. PAST SURGICAL HISTORY: Unknown. MEDICATIONS: He was on at the time I stopped by to see were reviewed, pertinent medications included the following: DuoNeb treatments nebulized t.i.d., Rocephin 2 grams IV q. 24 hours. He was on dopamine drip, maxed at 20 mcg per kg per minute. He was also maxed on Levophed at 30 mcg per minute, Zofran 4 mg IV q. 8 hours p.r.n. nausea and vomiting, Trental 400 mg p.o. q. 8 hours, vitamin K received a one-time dose 10 mg IV. ALLERGIES: No known drug allergies. DIET: Thin gentleman, really with central obesity. Acute weight loss or gain history is unknown. FAMILY AND SOCIAL HISTORY: Lives in the community, actually was picked up from a hotel. Alcohol, tobacco, illicit drug use or abuse history is unknown except that we know he has a history of alcohol abuse. The records mention his last drink was about a week ago. Otherwise, unable to obtain secondary to his mental status. REVIEW OF SYSTEMS: Unobtainable secondary to patient's medical and mental condition. Since he has been here, no gross hematochezia or melena. No hematemesis, no bloody ET tube secretions, no witnessed seizures. PHYSICAL EXAMINATION: VITAL SIGNS: At presentation in the Emergency Room, vital signs, he was afebrile, temperature 98.3 degrees Fahrenheit with a pulse of 95, respiratory rate of 19, blood pressure 187/83, O2 sats were 92%, inspired oxygen concentration at that time was not recorded. When I stopped by to see him, O2 sats were 98% that was on the mechanical ventilator, assist control mode, tidal volume 500, rate of 30, PEEP of 6, and 100% FiO2. GENERAL: He is a middle-aged male, normocephalic with the facies of chronic liver disease or decompensated liver disease. The patient obviously jaundiced. HEAD, EYES, EARS, NOSE AND THROAT: He was icteric. No conjunctival erythema. Oropharynx was moist. He had an endotracheal tube around 23 cm, taped at the lips. No gross jugular venous distention, no thyromegaly. Grossly, no palpable lymph nodes in the supraclavicular or submandibular lymph node chains. LUNGS: Auscultation of both lung newby were done, revealed bibasilar inspiratory rales. No active wheezing. HEART: Heart sounds 1 and 2 are heard, regular rate and rhythm at time of my evaluation without rubs or murmurs. ABDOMEN: Distended. Bowel sounds are positive, but hypoactive, did not appear tender. No obvious palpable hepatosplenomegaly. EXTREMITIES: Without overt digital clubbing or cyanosis. He had a 2+ bipedal pitting edema. Pedal pulses were palpable, very weak. NEUROLOGIC: He was essentially obtunded. SKIN: Poor turgor. He was icteric. No obvious cellulitis or rash I could see. LABORATORY DATA: From my review: Admission white cell count 4000, hemoglobin 11.9, hematocrit 34.1, platelet count 52 and 87% band neutrophils reported. INR was 3.11 at presentation. Arterial blood gas at presentation showed a pH of 7.29, pCO2 was not reported, pO2 was 66 that was on 40% FiO2. Most recent gas from about noon or earlier today showed a pH of 7.0, pCO2 of 58 and pO2 of 72 that was on 100% FiO2. Serum sodium 120, potassium 3.3, chloride 75, bicarbonate 13, BUN 7, creatinine 1.7, glucose was 62. Lactic acid level was 16.5, it is down to 10.9 and magnesium was low at 1.5. Total bilirubin elevated at 13.4. AST up at 98. Troponin within normal limits. Ammonia 197. Urinalysis negative for leukocyte esterase and nitrites. Alcohol level was nondetectable. Cultures of blood and tracheal aspirate, no growth to date. CT scan was done on the head at presentation, I have reviewed the report. He also had a chest x-ray done, hypoventilation; layering small pleural effusions, left greater than right; borderline cardiomegaly, lordotic film. Most recent x-ray definitely has the bilateral effusions, appeared to be increasing in size, may be positional. Left PICC line is in place. No gross pneumothorax, no cardiomegaly, no gross bony fractures. A CT of the head, no acute abnormalities. ASSESSMENT: 1. Acute hypoxemic respiratory failure, on mechanical ventilatory support. 2. Bilateral pleural effusions. 3. Decompensated hepatic failure. 4. Coagulopathy, likely secondary to above. 5. Severe metabolic acidosis. 6. Lactic acidosis. 7. Ascites. 8. Severe sepsis with shock. 9. Acute kidney injury. 10. Hyperammonemia. 11. Hypoglycemia. 12. Alcohol abuse history. 13. Leukopenia. 14. Thrombocytopenia. 15. Mixed hypercapnic and hypoxemic respiratory failure. 16. Hyponatremia. 17. Hypokalemia. 18. Hypocalcemia. 19. Hypomagnesemia. PLAN: Stat arterial blood gas will be done. I will put him on a D5 bicarbonate drip due to D5W with 3 amps of bicarbonate as we do expect he is going to be hypoglycemic and also to correct his acid base balance and to help with volume resuscitate him. I will add a third vasopressin at this point, we will target mean arterial pressures of 65 mmHg. Hypoventilate him in the meantime to blow down the CO2. We do agree with empiric broad spectrum antibiotic therapy. I will get a CRP level to help better evaluate the true infectious potential. Lactic acid levels will also be trended. Bronchodilators will be continued as ordered. Ventilator-associated pneumonia bundle has been instituted. Daily sedation assessment trials is off sedation as well as spontaneous breathing trial assessments will be done. We will begin some lactulose via the NG tube for the hyperammonemia. GI consultation has been placed. Cardiology evaluation has been requested. He has been pancultured. Anti-infectives will be deescalated based on results of clinical and microbiologic data. Accu-Cheks will be done q.6 hours. Avoid significant hypoglycemia. We will keep an eye on his platelet count, but hold on platelet transfusion at this point. I will get bilateral lower extremity Dopplers as part of a DVT workup, venous thromboembolic disorder workup. Again, bicarbonate supplementation will be done. Flu and pneumonia vaccination will be addressed per protocol. Thank you very much for the consult. Dr. Portillo will follow along and make further recommendations as picture progresses/becomes clearer. He is critically at very high risk of decompensation and from cardiopulmonary, hepatic, hematologic system deterioration. At this time, I spent about 35-40 minutes of critical care time without overlap and excluding any procedural time that may be necessary. I should mention he currently has a left upper extremity PICC line in place. JOB# [id number] MARISSA/CINDY
[2018-08-18] MEDS: ROCEPHIN/NS 2 GM/100 ML 2 GM/100 ML BAG IV SCH (05:40)
[2018-08-18] MEDS: ALBURX 25% (ALBUMIN) IV SCH ×3 (05:41→21:09)
[2018-08-18] MEDS: LEVOPHED DRIP 4 MG/NS 250 ML 4 MG/250 ML BAG IV SCH ×2 (05:42→23:52)
[2018-08-18 05:59] LABS: Albumin 1.3 g/dL (3.9-5)
--- NOTE | 2018-08-18 07:20 | Progress Note ---
Assessment and Plan s/p Cardiopulmonary arrest with ROSC -Acute respiratory failure with hypoxia -Acute Liver Failure, poor prognosis -Severe sepsis with septic shock -MSOF -Circulatory shock -Acute hepatic encephalopathy -Recurrent massive ascites-2/2 end-stage alcoholic chronic liver disease -SIRS with lactic acidosis, with organ dysfunction suspected Sepsis -ARF-ATN+Probably hepatorenal syndrome -Acute on chronic hyponatremia -Hypokalemia/Hypomagnesemia -Acute metabolic acidosis -Left pleural effusion -Hypoglycemia -Severe protein calorie malnutrition -h/o Chronic alcohol abuse- -MVS, with lung protective strategies -Continue vasopressor support for MAP <65( currently on norepinephrine, dopamine and vasopressin) -Enteric nutrition , start Vital at 10ml, for trophic feeding -Nutrition consult -VTE prophylaxis-SCD, has severe thrombocytopenia -Stress ulcer prophylaxis -VAP bundle addressed -Adjust minute ventilation for better gas exchange -ABG in 2 hours ( current ABG 7.236/76 Bicarb pending -Conitnue bicarbonate infusion -Aspiration precautions, keep HOB >40 -Lung protective strategies -Wean supplemental oxygen for O2 sats>90% -Accuchecks q6h -Hypoglycemia protocol -Mobility for pressure ulcer prevention -Lactulose for hepatic encephalopathy, bowel decontamination -Replace electrolytes as indicated -ID consult for antibiotic management currently on Rocephin -Supportive transfusions -Reversal of coagulopathy Discussed extensively with RT/RN at the bedside. Follow up ABG, lactic acid and BMP at 4pm. I am to be called with results Discussed with hospitalist service, re need to address goals of care. Risk management contacted help locate family CONDITION: CRITICAL PROGNOSIS: POOR TO GRIM CODE STATUS: FULL CODE The high probability of a clinically significant, sudden or life threatening deterioration of the [pulmonary, hepatobiliary, cardiovascular, hematology] system(s) required my full and direct attention, intervention and personal management. The aggregate critical care time was [65] minutes. This time is in addition to time spent performing reported procedures but includes the following: [x] Data Review and interpretation [x] Patient assessment and monitoring of vital signs [x] Documentation [x] Medication orders and management Subjective Date of service: 08/18/18 Interval history: Follow up for: Cardiopulmoanry arrest, severe sepsis with septic shock, hepatic failure, acute hypoxic respiratory failure Seen and examined. Vitals, labs, medications, chart reviewed. Overnight events managed by me remotely. Continues to deteriorate, more coagulopathic, remains on critical infusions with on going decompensation with his hemodynamics, remains unresponsive,pupils remain fixed and dilated. Remains on MVS. Still unable to contact any family Objective - Exam Narrative Exam: General: Unresponsive, on MVS and not sedated, Anasarca NGT with coffee ground substance, icteric Sclera, jaundice HEENT: Pupils fixed and dilated, bleeding Respiratory: Agonal breathing, DIMINISHED Cardiac: Regular, no murmur, S1,S2 Severe abd distension with Ascites, hypoactive BS Msk: leg edema, pitting edema, mottled, scrotal edema Neurology: Not responding neurologically SKIN: Mottled, bleeding diathesis from multiple orifices Vital Signs - 12hr 08/17/18 08/17/18 08/17/18 19:30 19:38 19:48 Temperature Pulse Rate 99 H 101 H Pulse Rate [ 101 H 102 H Anterior Bilateral Throughout] Pulse Rate [ From Monitor] Pulse Rate [ Right Radial] Respiratory 25 H Rate Respiratory 33 H 31 H Rate [Anterior Bilateral Throughout] Blood Pressure 96/63 96/63 O2 Sat by Pulse 94 94 Oximetry 08/17/18 08/17/18 08/17/18 20:00 20:30 20:45 Temperature Pulse Rate 98 H 102 H Pulse Rate [ Anterior Bilateral Throughout] Pulse Rate [ From Monitor] Pulse Rate [ Right Radial] Respiratory 28 H 25 H Rate Respiratory Rate [Anterior Bilateral Throughout] Blood Pressure 113/60 110/68 120/79 O2 Sat by Pulse 93 100 Oximetry 08/17/18 08/17/18 08/17/18 21:00 21:32 21:34 Temperature 96.8 F L 96.8 F L Pulse Rate Pulse Rate [ Anterior Bilateral Throughout] Pulse Rate [ From Monitor] Pulse Rate [ Right Radial] Respiratory 28 H Rate Respiratory Rate [Anterior Bilateral Throughout] Blood Pressure O2 Sat by Pulse Oximetry 08/17/18 08/17/18 08/17/18 21:37 21:44 22:00 Temperature Pulse Rate 101 H Pulse Rate [ Anterior Bilateral Throughout] Pulse Rate [ From Monitor] Pulse Rate [ 98 H 100 H Right Radial] Respiratory Rate Respiratory Rate [Anterior Bilateral Throughout] Blood Pressure 180/144 103/63 O2 Sat by Pulse Oximetry 08/17/18 08/17/18 08/17/18 22:02 23:15 23:40 Temperature 96.4 F L Pulse Rate 103 H Pulse Rate [ Anterior Bilateral Throughout] Pulse Rate [ From Monitor] Pulse Rate [ 92 H Right Radial] Respiratory Rate Respiratory Rate [Anterior Bilateral Throughout] Blood Pressure 124/92 129/64 O2 Sat by Pulse 93 Oximetry 08/18/18 08/18/18 08/18/18 00:00 01:00 02:00 Temperature Pulse Rate Pulse Rate [ Anterior Bilateral Throughout] Pulse Rate [ From Monitor] Pulse Rate [ 100 H 99 H Right Radial] Respiratory 100 H Rate Respiratory Rate [Anterior Bilateral Throughout] Blood Pressure 137/62 123/51 133/76 O2 Sat by Pulse Oximetry 08/18/18 08/18/18 08/18/18 03:00 03:19 03:20 Temperature Pulse Rate 101 H Pulse Rate [ Anterior Bilateral Throughout] Pulse Rate [ From Monitor] Pulse Rate [ 100 H Right Radial] Respiratory 28 H Rate Respiratory Rate [Anterior Bilateral Throughout] Blood Pressure 132/76 132/76 O2 Sat by Pulse 94 Oximetry 08/18/18 08/18/18 08/18/18 03:40 03:45 04:00 Temperature Pulse Rate 101 H 101 H 101 H Pulse Rate [ Anterior Bilateral Throughout] Pulse Rate [ From Monitor] Pulse Rate [ 101 H Right Radial] Respiratory 25 H 26 H 25 H Rate Respiratory Rate [Anterior Bilateral Throughout] Blood Pressure 120/72 O2 Sat by Pulse 95 Oximetry 08/18/18 08/18/18 08/18/18 04:16 04:21 04:30 Temperature Pulse Rate 101 H 101 H Pulse Rate [ Anterior Bilateral Throughout] Pulse Rate [ From Monitor] Pulse Rate [ 101 H Right Radial] Respiratory 26 H 25 H Rate Respiratory Rate [Anterior Bilateral Throughout] Blood Pressure 120/72 113/57 120/72 O2 Sat by Pulse 69 L Oximetry 08/18/18 08/18/18 08/18/18 04:46 05:00 05:16 Temperature Pulse Rate 101 H 100 H 101 H Pulse Rate [ Anterior Bilateral Throughout] Pulse Rate [ 101 H From Monitor] Pulse Rate [ Right Radial] Respiratory 25 H 24 25 H Rate Respiratory Rate [Anterior Bilateral Throughout] Blood Pressure 120/72 145/64 145/64 O2 Sat by Pulse 88 100 79 L Oximetry 08/18/18 08/18/18 08/18/18 05:30 05:46 06:00 Temperature Pulse Rate 101 H 101 H 102 H Pulse Rate [ Anterior Bilateral Throughout] Pulse Rate [ From Monitor] Pulse Rate [ Right Radial] Respiratory 25 H 27 H 25 H Rate Respiratory Rate [Anterior Bilateral Throughout] Blood Pressure 125/66 125/66 138/72 O2 Sat by Pulse 90 Oximetry 08/18/18 08/18/18 08/18/18 06:16 06:30 06:45 Temperature Pulse Rate 100 H 101 H 101 H Pulse Rate [ Anterior Bilateral Throughout] Pulse Rate [ From Monitor] Pulse Rate [ Right Radial] Respiratory 25 H 25 H 25 H Rate Respiratory Rate [Anterior Bilateral Throughout] Blood Pressure 145/64 138/72 O2 Sat by Pulse 94 Oximetry 08/18/18 07:00 Temperature Pulse Rate 102 H Pulse Rate [ Anterior Bilateral Throughout] Pulse Rate [ From Monitor] Pulse Rate [ Right Radial] Respiratory 27 H Rate Respiratory Rate [Anterior Bilateral Throughout] Blood Pressure 139/104 O2 Sat by Pulse Oximetry CBC and BMP: 08/19/18 04:20 08/18/18 20:53 ABG, PT/INR, D-dimer: ABG POC ABG pH 7.236 (7.35-7.45) L 08/18/18 03:53 POC ABG pCO2 58.4 (35-45) H 08/17/18 08:10 POC ABG pO2 76 (80-105) L 08/18/18 03:53 POC ABG HCO3 12.2 (22-26 mml/L) 08/18/18 03:53 POC ABG Total CO2 13 (23-27mmol/L) 08/18/18 03:53 POC ABG O2 Sat 93 08/18/18 03:53 PT/INR, D-dimer PT 34.2 Sec. (12.2-14.9) H 08/17/18 00:30 INR 3.11 (0.87-1.13) H 08/17/18 00:30 Abnormal lab findings: Abnormal Labs 08/17/18 08/17/18 08/17/18 00:30 00:30 00:30 WBC 4.0 L RBC 2.78 L Hct 34.1 L MCV 123 H MCH 43 H MCHC 35 H RDW 22.4 H Plt Count 52 L Seg Neuts % (Manual) 12.0 L Lymphocytes % (Manual) 1.0 L Seg Neutrophils # Man 0.5 L Lymphocytes # (Manual) 0.0 L PT 34.2 H INR 3.11 H APTT 47.6 H POC ABG pH POC ABG pCO2 POC ABG pO2 Sodium 120 L Potassium 3.3 L Chloride 74.5 L Carbon Dioxide 13 L BUN 7 L Creatinine 1.7 H Glucose 62 L POC Glucose Lactic Acid Calcium 7.6 L Magnesium Total Bilirubin Direct Bilirubin AST ALT Ammonia C-Reactive Protein Total Protein Albumin Urine WBC (Auto) Urine Creatinine Urine Total Protein 08/17/18 08/17/18 08/17/18 00:30 00:30 00:30 WBC RBC Hct MCV MCH MCHC RDW Plt Count Seg Neuts % (Manual) Lymphocytes % (Manual) Seg Neutrophils # Man Lymphocytes # (Manual) PT INR APTT POC ABG pH POC ABG pCO2 POC ABG pO2 Sodium Potassium Chloride Carbon Dioxide BUN Creatinine Glucose POC Glucose Lactic Acid 16.80 H* Calcium Magnesium Total Bilirubin 13.40 H Direct Bilirubin 7.2 H AST 98 H ALT Ammonia 197.0 H C-Reactive Protein Total Protein Albumin 1.8 L Urine WBC (Auto) Urine Creatinine Urine Total Protein 08/17/18 08/17/18 08/17/18 01:53 02:00 03:23 WBC RBC Hct MCV MCH MCHC RDW Plt Count Seg Neuts % (Manual) Lymphocytes % (Manual) Seg Neutrophils # Man Lymphocytes # (Manual) PT INR APTT POC ABG pH POC ABG pCO2 POC ABG pO2 Sodium Potassium Chloride Carbon Dioxide BUN Creatinine Glucose POC Glucose Lactic Acid 16.60 H* 16.50 H* Calcium Magnesium Total Bilirubin Direct Bilirubin AST ALT Ammonia C-Reactive Protein Total Protein Albumin Urine WBC (Auto) 7.0 H Urine Creatinine Urine Total Protein 08/17/18 08/17/18 08/17/18 03:23 04:21 06:20 WBC RBC Hct MCV MCH MCHC RDW Plt Count Seg Neuts % (Manual) Lymphocytes % (Manual) Seg Neutrophils # Man Lymphocytes # (Manual) PT INR APTT POC ABG pH 7.293 L POC ABG pCO2 POC ABG pO2 66 L Sodium Potassium Chloride Carbon Dioxide BUN Creatinine Glucose POC Glucose Lactic Acid 10.90 H* Calcium Magnesium 1.50 L Total Bilirubin Direct Bilirubin AST ALT Ammonia C-Reactive Protein Total Protein Albumin Urine WBC (Auto) Urine Creatinine Urine Total Protein 08/17/18 08/17/18 08/17/18 08:10 15:16 15:16 WBC RBC Hct MCV MCH MCHC RDW Plt Count Seg Neuts % (Manual) Lymphocytes % (Manual) Seg Neutrophils # Man Lymphocytes # (Manual) PT INR APTT POC ABG pH 6.978 L POC ABG pCO2 58.4 H POC ABG pO2 72 L Sodium Potassium Chloride Carbon Dioxide BUN Creatinine Glucose POC Glucose Lactic Acid 19.70 H* Calcium Magnesium Total Bilirubin Direct Bilirubin AST ALT Ammonia 321.0 H C-Reactive Protein Total Protein Albumin Urine WBC (Auto) Urine Creatinine Urine Total Protein 08/17/18 08/17/18 08/17/18 15:16 15:25 16:47 WBC RBC Hct MCV MCH MCHC RDW Plt Count Seg Neuts % (Manual) Lymphocytes % (Manual) Seg Neutrophils # Man Lymphocytes # (Manual) PT INR APTT POC ABG pH 7.191 L POC ABG pCO2 POC ABG pO2 Sodium Potassium Chloride Carbon Dioxide BUN Creatinine Glucose POC Glucose Lactic Acid Calcium Magnesium Total Bilirubin Direct Bilirubin AST ALT Ammonia C-Reactive Protein 2.30 H Total Protein Albumin Urine WBC (Auto) Urine Creatinine 215.1 H Urine Total Protein 183 H 08/17/18 08/17/18 08/17/18 17:20 18:20 20:07 WBC RBC Hct MCV MCH MCHC RDW Plt Count Seg Neuts % (Manual) Lymphocytes % (Manual) Seg Neutrophils # Man Lymphocytes # (Manual) PT INR APTT POC ABG pH POC ABG pCO2 POC ABG pO2 Sodium Potassium Chloride Carbon Dioxide BUN Creatinine Glucose POC Glucose < 40 L Lactic Acid 18.80 H* 20.20 H* Calcium Magnesium Total Bilirubin Direct Bilirubin AST ALT Ammonia C-Reactive Protein Total Protein Albumin Urine WBC (Auto) Urine Creatinine Urine Total Protein 08/18/18 08/18/18 03:53 04:46 WBC RBC Hct MCV MCH MCHC RDW Plt Count Seg Neuts % (Manual) Lymphocytes % (Manual) Seg Neutrophils # Man Lymphocytes # (Manual) PT INR APTT POC ABG pH 7.236 L POC ABG pCO2 POC ABG pO2 76 L Sodium 121 L Potassium Chloride 75.3 L Carbon Dioxide 10 L BUN Creatinine 1.6 H Glucose POC Glucose Lactic Acid Calcium 7.0 L Magnesium Total Bilirubin 13.50 H Direct Bilirubin AST 4486 H ALT 607 H Ammonia C-Reactive Protein Total Protein 5.2 L D Albumin 1.3 L Urine WBC (Auto) Urine Creatinine Urine Total Protein
--- NOTE | 2018-08-18 08:37 | XRay Report ---
EXAM: XR CHEST 1V AP HISTORY: follow up respiratory failure TECHNIQUE: AP chest x-ray dated 08/18/2018 at 7:56 AM. COMPARISON: None available. FINDINGS: ET tube in situ with distal tip approximately 7.1 cm above the tawny (adequate position). There is a left upper extremity PICC line with the distal tip in the expected location of the distal SVC (adequ ate position). Recommend careful clinical correlation to ensure venous blood return. There is diffuse bilateral lung parenchymal infiltrates in keeping with acute multilobar bronchopneum onia in the appropriate clinical setting; differential diagnoses includes mild noncardiogenic pulmona ry congestion in the appropriate clinical setting. Clinical correlation is advised. There is increased opacity in the lung bases with loss of definition of the hemidiaphragms in keeping with basilar atelectasis and/or small pleural effusions; cannot rule out a pneumonic infiltrates in the appropriate clinical setting. Clinical correlation is advised. No pneumothorax is seen. The heart size and mediastinum are within normal limits. The visualized bony structures are within normal limits. IMPRESSION: 1. Diffuse bilateral lung parenchymal infiltrates in keeping with acute multilobar bronchopneumonia in the appropriate clinical setting; DDX includes mild to moderate noncardiogenic pulmonary congesti on in the appropriate clinical setting. Recommend clinical correlation and appropriate followup evalu ation as clinically warranted. 2. Increased opacity in the lung bases with loss of definition of the hemidiaphragms in keeping with basilar atelectasis and/or small pleural effusions; cannot rule out a pneumonic infiltrates in the a ppropriate clinical setting. Clinical correlation is advised. This document is electronically signed by Chichi Farias MD., Aug 18 2018 08:36:07 AM ET
[2018-08-18] MEDS: DUONEB *Not for PRN Use IH SCH ×2 (08:46→14:40)
--- NOTE | 2018-08-18 09:00 | XRay Report ---
EXAM: XR ABDOMEN 1V AP HISTORY: NGT placement TECHNIQUE: Supine and erect views COMPARISON: None available. FINDINGS: A nasogastric tube is noted in situ with the distal tip in the right upper quadrant, likely within th e pyloric region of the stomach. There is suggestion of a large intraperitoneal ascites. There are up to 5.6 cm dilated air-filled bowel loops in the central abdomen which may represent ileus and/or fol low obstruction. Correlation with CT may be beneficial for further characterization. There is no gross organomegaly, discernible free intraperitoneal air, or suspicious calcifications se en. The visualized bony structures are within normal limits. IMPRESSION: 1. Suggestion of a large intraperitoneal ascites. 2. Up to 5.6 cm dilated air-filled bowel loops in the central abdomen which may represent ileus and/ or follow obstruction. Correlation with CT may be beneficial for further characterization. 3. No gross organomegaly, free intraperitoneal air, or suspicious calcifications seen. This document is electronically signed by Chichi Farias MD., Aug 18 2018 08:58:35 AM ET
[2018-08-18] MEDS: SODIUM BICARBONATE 150 MEQ in D5W 1,000 ML IV SCH (10:39)
[2018-08-18] MEDS ORDERED: VANCOMYCIN 1,000 MG in NACL 0.9% 500 ML 500 ML IV ONE (10:58)
--- NOTE | 2018-08-18 10:58 | Event Note ---
Date: 08/18/18 Discussed with ID, who will see him in consultation. OK to empirically start Vancomycin and Cefepime.
[2018-08-18] MEDS ORDERED: PROTONIX IV SCH (11:00)
[2018-08-18] MEDS: CEPHULAC PO SCH ×3 (11:34→23:46)
[2018-08-18] MEDS: PEPCID IV SCH ×2 (11:41→21:10)
[2018-08-18] MEDS ORDERED: VITAMIN B-1 100 MG, FOLVITE 1 MG, INFUVITE 10 ML in NACL 0.9% 1000 ML 1,000 ML IV ONE (12:00)
[2018-08-18] MEDS ORDERED: VANCOMYCIN 1,750 MG in NACL 0.9% 500 ML 500 ML IV ONE (12:00)
[2018-08-18] MEDS: TRENTAL PO SCH ×3 (12:12→23:46)
[2018-08-18] MEDS: D50W (25GM) Syringe IV PRN ×2 (14:08→18:37)
--- NOTE | 2018-08-18 15:23 | Progress Note ---
Assessment and Plan 1. Abnormal liver enzymes - c/w alcoholic cirrhosis with acute exacerbation possibly due to alcohol, but LFTs worse today due to ischemic hepatopathy. Pt on lactulose via [place]. - monitor INR for response to vit K as a prognostic factor for liver disease - supportive care Subjective Date of service: 08/18/18 Interval history: Pt in ICU, unresponsive, on ventilator. On pressors, gradually weaning down. No family available. Objective - Constitutional Vitals: Vital Signs - 12hr 08/18/18 08/18/18 08/18/18 03:19 03:20 03:40 Temperature Pulse Rate 101 H 101 H Pulse Rate [ Anterior Bilateral Throughout] Pulse Rate [ From Monitor] Pulse Rate [ Right Radial] Respiratory 28 H 25 H Rate Respiratory Rate [Anterior Bilateral Throughout] Blood Pressure 132/76 O2 Sat by Pulse 94 95 Oximetry 08/18/18 08/18/18 08/18/18 03:45 04:00 04:16 Temperature Pulse Rate 101 H 101 H 101 H Pulse Rate [ Anterior Bilateral Throughout] Pulse Rate [ From Monitor] Pulse Rate [ 101 H Right Radial] Respiratory 26 H 25 H 26 H Rate Respiratory Rate [Anterior Bilateral Throughout] Blood Pressure 120/72 120/72 O2 Sat by Pulse 69 L Oximetry 08/18/18 08/18/18 08/18/18 04:21 04:30 04:46 Temperature Pulse Rate 101 H 101 H Pulse Rate [ Anterior Bilateral Throughout] Pulse Rate [ From Monitor] Pulse Rate [ 101 H Right Radial] Respiratory 25 H 25 H Rate Respiratory Rate [Anterior Bilateral Throughout] Blood Pressure 113/57 120/72 120/72 O2 Sat by Pulse 88 Oximetry 08/18/18 08/18/18 08/18/18 05:00 05:16 05:30 Temperature Pulse Rate 100 H 101 H 101 H Pulse Rate [ Anterior Bilateral Throughout] Pulse Rate [ 101 H From Monitor] Pulse Rate [ Right Radial] Respiratory 24 25 H 25 H Rate Respiratory Rate [Anterior Bilateral Throughout] Blood Pressure 145/64 145/64 125/66 O2 Sat by Pulse 100 79 L Oximetry 08/18/18 08/18/18 08/18/18 05:46 06:00 06:16 Temperature Pulse Rate 101 H 102 H 100 H Pulse Rate [ Anterior Bilateral Throughout] Pulse Rate [ From Monitor] Pulse Rate [ Right Radial] Respiratory 27 H 25 H 25 H Rate Respiratory Rate [Anterior Bilateral Throughout] Blood Pressure 125/66 138/72 145/64 O2 Sat by Pulse 90 Oximetry 08/18/18 08/18/18 08/18/18 06:30 06:45 07:00 Temperature Pulse Rate 101 H 101 H 102 H Pulse Rate [ Anterior Bilateral Throughout] Pulse Rate [ 106 H From Monitor] Pulse Rate [ Right Radial] Respiratory 25 H 25 H 20 Rate Respiratory Rate [Anterior Bilateral Throughout] Blood Pressure 138/72 139/104 O2 Sat by Pulse 94 Oximetry 08/18/18 08/18/18 08/18/18 07:15 07:31 07:45 Temperature 93.3 F L Pulse Rate 101 H 101 H 101 H Pulse Rate [ Anterior Bilateral Throughout] Pulse Rate [ From Monitor] Pulse Rate [ Right Radial] Respiratory 27 H 28 H 30 H Rate Respiratory Rate [Anterior Bilateral Throughout] Blood Pressure 139/104 139/104 139/104 O2 Sat by Pulse 89 Oximetry 08/18/18 08/18/18 08/18/18 08:00 08:15 08:31 Temperature Pulse Rate 92 H 100 H 100 H Pulse Rate [ Anterior Bilateral Throughout] Pulse Rate [ From Monitor] Pulse Rate [ Right Radial] Respiratory 31 H 30 H 30 H Rate Respiratory Rate [Anterior Bilateral Throughout] Blood Pressure 139/104 130/58 130/58 O2 Sat by Pulse Oximetry 08/18/18 08/18/18 08/18/18 08:42 08:45 08:46 Temperature Pulse Rate 98 H 98 H Pulse Rate [ 99 H Anterior Bilateral Throughout] Pulse Rate [ From Monitor] Pulse Rate [ Right Radial] Respiratory 27 H Rate Respiratory 31 H Rate [Anterior Bilateral Throughout] Blood Pressure 130/58 130/58 O2 Sat by Pulse 97 94 Oximetry 08/18/18 08/18/18 08/18/18 09:00 09:15 09:20 Temperature Pulse Rate 101 H 102 H Pulse Rate [ 102 H Anterior Bilateral Throughout] Pulse Rate [ From Monitor] Pulse Rate [ Right Radial] Respiratory 27 H 29 H Rate Respiratory 30 H Rate [Anterior Bilateral Throughout] Blood Pressure 142/78 142/78 O2 Sat by Pulse 96 97 Oximetry 08/18/18 08/18/18 08/18/18 09:31 09:45 10:00 Temperature Pulse Rate 105 H 105 H 104 H Pulse Rate [ Anterior Bilateral Throughout] Pulse Rate [ From Monitor] Pulse Rate [ Right Radial] Respiratory 30 H 30 H 30 H Rate Respiratory Rate [Anterior Bilateral Throughout] Blood Pressure 142/78 142/78 118/79 O2 Sat by Pulse 95 83 L 92 Oximetry 08/18/18 08/18/18 08/18/18 10:15 10:30 10:45 Temperature Pulse Rate 104 H 107 H 105 H Pulse Rate [ Anterior Bilateral Throughout] Pulse Rate [ From Monitor] Pulse Rate [ Right Radial] Respiratory 30 H 30 H 30 H Rate Respiratory Rate [Anterior Bilateral Throughout] Blood Pressure 118/79 142/78 118/79 O2 Sat by Pulse 88 93 94 Oximetry 08/18/18 08/18/18 08/18/18 11:00 11:15 11:31 Temperature Pulse Rate 104 H 104 H 104 H Pulse Rate [ Anterior Bilateral Throughout] Pulse Rate [ From Monitor] Pulse Rate [ Right Radial] Respiratory 30 H 30 H 30 H Rate Respiratory Rate [Anterior Bilateral Throughout] Blood Pressure 136/80 118/79 118/79 O2 Sat by Pulse 92 93 92 Oximetry 08/18/18 08/18/18 08/18/18 11:35 11:45 12:00 Temperature Pulse Rate 104 H 103 H 104 H Pulse Rate [ Anterior Bilateral Throughout] Pulse Rate [ From Monitor] Pulse Rate [ Right Radial] Respiratory 30 H 29 H Rate Respiratory Rate [Anterior Bilateral Throughout] Blood Pressure 136/80 143/59 134/72 O2 Sat by Pulse 93 79 L 95 Oximetry 08/18/18 08/18/18 08/18/18 12:15 12:31 12:45 Temperature Pulse Rate 105 H 104 H 106 H Pulse Rate [ Anterior Bilateral Throughout] Pulse Rate [ From Monitor] Pulse Rate [ Right Radial] Respiratory 30 H 31 H 29 H Rate Respiratory Rate [Anterior Bilateral Throughout] Blood Pressure 134/77 130/59 118/66 O2 Sat by Pulse 81 L 80 L 78 L Oximetry 08/18/18 08/18/18 08/18/18 13:01 13:15 13:30 Temperature Pulse Rate 105 H 106 H 105 H Pulse Rate [ Anterior Bilateral Throughout] Pulse Rate [ From Monitor] Pulse Rate [ Right Radial] Respiratory 30 H 30 H 30 H Rate Respiratory Rate [Anterior Bilateral Throughout] Blood Pressure 109/73 134/69 139/71 O2 Sat by Pulse 92 90 91 Oximetry 08/18/18 08/18/18 13:45 14:40 Temperature Pulse Rate 106 H Pulse Rate [ 105 H Anterior Bilateral Throughout] Pulse Rate [ From Monitor] Pulse Rate [ Right Radial] Respiratory 30 H Rate Respiratory 30 H Rate [Anterior Bilateral Throughout] Blood Pressure 126/70 O2 Sat by Pulse 87 Oximetry General appearance: Present: cachectic, other (Intubated, unresponsive to voice) - EENT Eyes: PERRL, scleral icterus - Cardiovascular Rhythm: other (tachycardia) Heart Sounds: Present: S1 & S2 - Gastrointestinal General gastrointestinal: Present: soft, non-tender, distended - Neurologic Neurologic: other (has corneal reflexes now) - Labs CBC & Chem 7: 08/17/18 00:30 08/18/18 04:46 Labs: Abnormal lab results 08/17/18 08/17/18 08/17/18 Range/Units 15:16 15:16 15:16 POC ABG pH (7.35-7.45) POC ABG pO2 (80-105) Sodium (137-145) mmol/L Chloride (98-107) mmol/L Carbon Dioxide (22-30) mmol/L Creatinine (0.8-1.5) mg/dL POC Glucose (70-105) Lactic Acid 19.70 H* (0.7-2.0) mmol/L Calcium (8.4-10.2) mg/dL Total Bilirubin (0.1-1.2) mg/dL AST (5-40) units/L ALT (7-56) units/L Ammonia 321.0 H (25-60) umol/L C-Reactive Protein 2.30 H (0.00-1.30) mg/dL Total Protein (6.3-8.2) g/dL Albumin (3.9-5) g/dL Urine Creatinine (0.1-20.0) mg/dL Urine Total Protein (5-11.8) mg/dL 08/17/18 08/17/18 08/17/18 Range/Units 15:25 16:47 17:20 POC ABG pH 7.191 L (7.35-7.45) POC ABG pO2 (80-105) Sodium (137-145) mmol/L Chloride (98-107) mmol/L Carbon Dioxide (22-30) mmol/L Creatinine (0.8-1.5) mg/dL POC Glucose (70-105) Lactic Acid 18.80 H* (0.7-2.0) mmol/L Calcium (8.4-10.2) mg/dL Total Bilirubin (0.1-1.2) mg/dL AST (5-40) units/L ALT (7-56) units/L Ammonia (25-60) umol/L C-Reactive Protein (0.00-1.30) mg/dL Total Protein (6.3-8.2) g/dL Albumin (3.9-5) g/dL Urine Creatinine 215.1 H (0.1-20.0) mg/dL Urine Total Protein 183 H (5-11.8) mg/dL 08/17/18 08/17/18 08/18/18 Range/Units 18:20 20:07 03:53 POC ABG pH 7.236 L (7.35-7.45) POC ABG pO2 76 L (80-105) Sodium (137-145) mmol/L Chloride (98-107) mmol/L Carbon Dioxide (22-30) mmol/L Creatinine (0.8-1.5) mg/dL POC Glucose < 40 L (70-105) Lactic Acid 20.20 H* (0.7-2.0) mmol/L Calcium (8.4-10.2) mg/dL Total Bilirubin (0.1-1.2) mg/dL AST (5-40) units/L ALT (7-56) units/L Ammonia (25-60) umol/L C-Reactive Protein (0.00-1.30) mg/dL Total Protein (6.3-8.2) g/dL Albumin (3.9-5) g/dL Urine Creatinine (0.1-20.0) mg/dL Urine Total Protein (5-11.8) mg/dL 08/18/18 08/18/18 08/18/18 Range/Units 04:46 10:26 14:08 POC ABG pH (7.35-7.45) POC ABG pO2 (80-105) Sodium 121 L (137-145) mmol/L Chloride 75.3 L (98-107) mmol/L Carbon Dioxide 10 L (22-30) mmol/L Creatinine 1.6 H (0.8-1.5) mg/dL POC Glucose 42 L 47 L (70-105) Lactic Acid (0.7-2.0) mmol/L Calcium 7.0 L (8.4-10.2) mg/dL Total Bilirubin 13.50 H (0.1-1.2) mg/dL AST 4486 H (5-40) units/L ALT 607 H (7-56) units/L Ammonia (25-60) umol/L C-Reactive Protein (0.00-1.30) mg/dL Total Protein 5.2 L D (6.3-8.2) g/dL Albumin 1.3 L (3.9-5) g/dL Urine Creatinine (0.1-20.0) mg/dL Urine Total Protein (5-11.8) mg/dL Medications & Allergies - Medications Allergies/Adverse Reactions: Allergies No Known Allergies Allergy (Unverified 04/02/18 15:12) Home Medications: Home Medications Medication Instructions Recorded Confirmed Last Taken Type Folic Acid [Folvite] 1 mg PO QDAY #30 tablet 04/13/18 08/17/18 Unknown Rx Sertraline [Zoloft] 25 mg PO QDAY #15 tablet 04/13/18 08/17/18 Unknown Rx Thiamine [Vitamin B-1] 100 mg PO QDAY #30 tablet 04/13/18 08/17/18 Unknown Rx busPIRone [Buspar] 7.5 mg PO BID #30 tablet 04/13/18 08/17/18 Unknown Rx Active Medications: Generic Name Dose Route Start Last Admin Trade Name Freq PRN Reason Stop Dose Admin Albumin Human 12.5 gm 08/17/18 17:00 08/18/18 05:41 Alburx 25% (Albumin) IV 08/19/18 06:01 12.5 gm Q8HR REJI Administration Albuterol/Ipratropium 1 ampul 08/17/18 08:00 08/18/18 14:40 Duoneb *Not For Prn Use* IH 1 ampul TIDRT REJI Administration Dextrose 50 ml 08/18/18 10:47 08/18/18 14:08 D50w (25gm) Syringe IV 50 ml PRN PRN Administration Hypoglycemia Famotidine 10 mg 08/18/18 12:00 08/18/18 11:41 Pepcid IV 10 mg BID REJI Administration Hydrophilic Ointment 1 applic 08/17/18 06:20 Vaseline Lip Therapy TP Q2HR PRN Dry Lips Propofol 1,000 mg in 100 mls @ 5.1 mls/hr 08/17/18 07:00 Diprivan 10 Mg/Ml IV TITR REJI Protocol 5 MCG/KG/MIN Dopamine HCl/Dextrose 800 mg in 250 mls @ 3.563 mls/hr 08/17/18 08:30 05/08/03 15:10 Intropin Drip 800 Mg/D5w 250 Ml IV Infused TITR REJI Titration Protocol 2 MCG/KG/MIN Norepinephrine 4 mg in 250 mls @ 7.5 mls/hr 08/17/18 15:00 08/18/18 05:42 Levophed Drip 4 Mg/Ns 250 Ml IV 4 mcg/min TITR REJI 15 mls/hr Administration Protocol 2 MCG/MIN Vasopressin 20 unit/ Sodium 101 mls @ 9.09 mls/hr 08/17/18 16:00 08/18/18 12:24 Chloride IV 0.03 units/min TITR REJI 9.09 mls/hr Administration Protocol 0.03 UNITS/MIN Sodium Bicarbonate 150 meq/ 1,150 mls @ 125 mls/hr 08/17/18 16:00 08/18/18 10:39 Dextrose IV 08/20/18 01:11 125 mls/hr DIRECT REJI Administration Thiamine HCl 100 mg/ Folic 1,011.2 mls @ 250 mls/hr 08/18/18 12:00 Acid 1 mg/ Multivitamins/ IV 08/18/18 16:02 Minerals 10 ml/ Sodium ONCE ONE Chloride Cefepime HCl 0.5 gm/ Sodium 100 mls @ 200 mls/hr 08/18/18 14:00 Chloride IV Q8HR REJI Protocol Lactulose 20 gm 08/18/18 12:00 08/18/18 11:34 Cephulac PO 20 gm Q6HR REJI Administration Multi-Ingred Cream/Lotion/Oil/Oint 1 applic 08/17/18 06:20 Artificial Tears Ophth Oint OU Q4HR PRN Dry Eye(s) Ondansetron HCl 4 mg 08/17/18 02:57 08/17/18 04:32 Zofran IV 4 mg Q8H PRN Administration Nausea And Vomiting Pentoxifylline 400 mg 08/17/18 16:00 08/18/18 12:12 Trental PO 400 mg Q8HR REJI Administration Sodium Chloride 10 ml 08/17/18 10:00 08/17/18 23:27 Sodium Chloride Flush Syringe 10 Ml IV 10 ml BID REJI Administration Sodium Chloride 10 ml 08/17/18 02:57 Sodium Chloride Flush Syringe 10 Ml IV PRN PRN LINE FLUSH
--- NOTE | 2018-08-18 15:43 | Progress Note ---
Assessment and Plan - Patient Problems (1) Acute tubular necrosis Current Visit: Yes Status: Acute Plan to address problem: Acute kidney failure and acute tubular necrosis secondary to hypotension and/or sepsis. Other consideration is hepatorenal syndrome. Patient remains on vasopressors. Kidney indices not significantly worse but patient is oliguric. Continue medical management. Follow-up intake and output. Patient is a poor candidate for renal replacement therapy. Patients prognosis poor. No family around to discuss with. We'll reevaluate tomorrow. (2) Hyponatremia Current Visit: Yes Status: Acute Plan to address problem: Sodium not significantly changed. (3) Encephalopathy Current Visit: Yes Status: Acute Plan to address problem: Hepatic encephalopathy. 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 Follow-up level (7) Cardiogenic shock Current Visit: Yes Status: Acute Plan to address problem: Wean vasopressors as tolerated Subjective Date of service: 08/18/18 Principal diagnosis: FLORES Interval history: Patient seen lying in bed in ICU. Intubated, sedated,. No family at bedside. Patient still on vasopressor Objective - Exam Narrative Exam: Middle aged male lying in bed intubated on ventilator HEENT: NCAT, pink oral mucous membrane Neck: Supple, no venous distention CVS: S1S2 RRR with no murmur, rub or gallop Chest: Coarse breath sounds Abdomen: Distended, firm, nontender, no organomegaly, Extremities: 2-3+ edema Skin: Areas of ecchymosis noted Genitourinary deferred Neuro: Awake, alert no focal deficits - Vital Signs Vital signs: Vital Signs - 12hr 08/18/18 08/18/18 08/18/18 03:40 03:45 04:00 Temperature Pulse Rate 101 H 101 H 101 H Pulse Rate [ Anterior Bilateral Throughout] Pulse Rate [ From Monitor] Pulse Rate [ 101 H Right Radial] Respiratory 25 H 26 H 25 H Rate Respiratory Rate [Anterior Bilateral Throughout] Blood Pressure 120/72 O2 Sat by Pulse 95 Oximetry 05/04/19 05/04/19 05/04/19 04:16 04:21 04:30 Temperature Pulse Rate 101 H 101 H Pulse Rate [ Anterior Bilateral Throughout] Pulse Rate [ From Monitor] Pulse Rate [ 101 H Right Radial] Respiratory 26 H 25 H Rate Respiratory Rate [Anterior Bilateral Throughout] Blood Pressure 120/72 113/57 120/72 O2 Sat by Pulse 69 L Oximetry 08/18/18 08/18/18 08/18/18 04:46 05:00 05:16 Temperature Pulse Rate 101 H 100 H 101 H Pulse Rate [ Anterior Bilateral Throughout] Pulse Rate [ 101 H From Monitor] Pulse Rate [ Right Radial] Respiratory 25 H 24 25 H Rate Respiratory Rate [Anterior Bilateral Throughout] Blood Pressure 120/72 145/64 145/64 O2 Sat by Pulse 88 100 79 L Oximetry 08/18/18 08/18/18 08/18/18 05:30 05:46 06:00 Temperature Pulse Rate 101 H 101 H 102 H Pulse Rate [ Anterior Bilateral Throughout] Pulse Rate [ From Monitor] Pulse Rate [ Right Radial] Respiratory 25 H 27 H 25 H Rate Respiratory Rate [Anterior Bilateral Throughout] Blood Pressure 125/66 125/66 138/72 O2 Sat by Pulse 90 Oximetry 08/18/18 08/18/18 08/18/18 06:16 06:30 06:45 Temperature Pulse Rate 100 H 101 H 101 H Pulse Rate [ Anterior Bilateral Throughout] Pulse Rate [ From Monitor] Pulse Rate [ Right Radial] Respiratory 25 H 25 H 25 H Rate Respiratory Rate [Anterior Bilateral Throughout] Blood Pressure 145/64 138/72 O2 Sat by Pulse 94 Oximetry 08/18/18 08/18/18 08/18/18 07:00 07:15 07:31 Temperature 93.3 F L Pulse Rate 102 H 101 H 101 H Pulse Rate [ Anterior Bilateral Throughout] Pulse Rate [ 106 H From Monitor] Pulse Rate [ Right Radial] Respiratory 20 27 H 28 H Rate Respiratory Rate [Anterior Bilateral Throughout] Blood Pressure 139/104 139/104 139/104 O2 Sat by Pulse Oximetry 08/18/18 08/18/18 08/18/18 07:45 08:00 08:15 Temperature Pulse Rate 101 H 92 H 100 H Pulse Rate [ Anterior Bilateral Throughout] Pulse Rate [ From Monitor] Pulse Rate [ Right Radial] Respiratory 30 H 31 H 30 H Rate Respiratory Rate [Anterior Bilateral Throughout] Blood Pressure 139/104 139/104 130/58 O2 Sat by Pulse 89 Oximetry 08/18/18 08/18/18 08/18/18 08:31 08:42 08:45 Temperature Pulse Rate 100 H 98 H 98 H Pulse Rate [ Anterior Bilateral Throughout] Pulse Rate [ From Monitor] Pulse Rate [ Right Radial] Respiratory 30 H 27 H Rate Respiratory Rate [Anterior Bilateral Throughout] Blood Pressure 130/58 130/58 130/58 O2 Sat by Pulse 97 94 Oximetry 08/18/18 08/18/18 08/18/18 08:46 09:00 09:15 Temperature Pulse Rate 101 H 102 H Pulse Rate [ 99 H Anterior Bilateral Throughout] Pulse Rate [ From Monitor] Pulse Rate [ Right Radial] Respiratory 27 H 29 H Rate Respiratory 31 H Rate [Anterior Bilateral Throughout] Blood Pressure 142/78 142/78 O2 Sat by Pulse 96 97 Oximetry 08/18/18 08/18/18 08/18/18 09:20 09:31 09:45 Temperature Pulse Rate 105 H 105 H Pulse Rate [ 102 H Anterior Bilateral Throughout] Pulse Rate [ From Monitor] Pulse Rate [ Right Radial] Respiratory 30 H 30 H Rate Respiratory 30 H Rate [Anterior Bilateral Throughout] Blood Pressure 142/78 142/78 O2 Sat by Pulse 95 83 L Oximetry 08/18/18 08/18/18 08/18/18 10:00 10:15 10:30 Temperature Pulse Rate 104 H 104 H 107 H Pulse Rate [ Anterior Bilateral Throughout] Pulse Rate [ From Monitor] Pulse Rate [ Right Radial] Respiratory 30 H 30 H 30 H Rate Respiratory Rate [Anterior Bilateral Throughout] Blood Pressure 118/79 118/79 142/78 O2 Sat by Pulse 92 88 93 Oximetry 08/18/18 08/18/18 08/18/18 10:45 11:00 11:15 Temperature Pulse Rate 105 H 104 H 104 H Pulse Rate [ Anterior Bilateral Throughout] Pulse Rate [ From Monitor] Pulse Rate [ Right Radial] Respiratory 30 H 30 H 30 H Rate Respiratory Rate [Anterior Bilateral Throughout] Blood Pressure 118/79 136/80 118/79 O2 Sat by Pulse 94 92 93 Oximetry 08/18/18 08/18/18 08/18/18 11:31 11:35 11:45 Temperature Pulse Rate 104 H 104 H 103 H Pulse Rate [ Anterior Bilateral Throughout] Pulse Rate [ From Monitor] Pulse Rate [ Right Radial] Respiratory 30 H 30 H Rate Respiratory Rate [Anterior Bilateral Throughout] Blood Pressure 118/79 136/80 143/59 O2 Sat by Pulse 92 93 79 L Oximetry 08/18/18 08/18/18 08/18/18 12:00 12:15 12:31 Temperature Pulse Rate 104 H 105 H 104 H Pulse Rate [ Anterior Bilateral Throughout] Pulse Rate [ From Monitor] Pulse Rate [ Right Radial] Respiratory 29 H 30 H 31 H Rate Respiratory Rate [Anterior Bilateral Throughout] Blood Pressure 134/72 134/77 130/59 O2 Sat by Pulse 95 81 L 80 L Oximetry 08/18/18 08/18/18 08/18/18 12:45 13:01 13:15 Temperature Pulse Rate 106 H 105 H 106 H Pulse Rate [ Anterior Bilateral Throughout] Pulse Rate [ From Monitor] Pulse Rate [ Right Radial] Respiratory 29 H 30 H 30 H Rate Respiratory Rate [Anterior Bilateral Throughout] Blood Pressure 118/66 109/73 134/69 O2 Sat by Pulse 78 L 92 90 Oximetry 08/18/18 08/18/18 08/18/18 13:30 13:45 14:40 Temperature Pulse Rate 105 H 106 H Pulse Rate [ 105 H Anterior Bilateral Throughout] Pulse Rate [ From Monitor] Pulse Rate [ Right Radial] Respiratory 30 H 30 H Rate Respiratory 30 H Rate [Anterior Bilateral Throughout] Blood Pressure 139/71 126/70 O2 Sat by Pulse 91 87 Oximetry - Lab 08/17/18 00:30 08/18/18 04:46 Most recent lab results Calcium 7.0 mg/dL (8.4-10.2) L 08/18/18 04:46 Magnesium 1.80 mg/dL (1.7-2.3) 08/18/18 04:46 Urine Creatinine 215.1 mg/dL (0.1-20.0) H 08/17/18 16:47 Urine Sodium 13 mmol/L 08/17/18 16:47 Urine Total Protein 183 mg/dL (5-11.8) H 08/17/18 16:47 Medications & Allergies - Medications Allergies/Adverse Reactions: Allergies No Known Allergies Allergy (Unverified 04/02/18 15:12) Home Medications: Home Medications Medication Instructions Recorded Confirmed Last Taken Type Folic Acid [Folvite] 1 mg PO QDAY #30 tablet 04/13/18 08/17/18 Unknown Rx Sertraline [Zoloft] 25 mg PO QDAY #15 tablet 04/13/18 08/17/18 Unknown Rx Thiamine [Vitamin B-1] 100 mg PO QDAY #30 tablet 04/13/18 08/17/18 Unknown Rx busPIRone [Buspar] 7.5 mg PO BID #30 tablet 04/13/18 08/17/18 Unknown Rx Active Medications: Generic Name Dose Route Start Last Admin Trade Name Freq PRN Reason Stop Dose Admin Albumin Human 12.5 gm 08/17/18 17:00 08/18/18 05:41 Alburx 25% (Albumin) IV 08/19/18 06:01 12.5 gm Q8HR REJI Administration Albuterol/Ipratropium 1 ampul 08/17/18 08:00 08/18/18 14:40 Duoneb *Not For Prn Use* IH 1 ampul TIDRT REJI Administration Dextrose 50 ml 08/18/18 10:47 08/18/18 14:08 D50w (25gm) Syringe IV 50 ml PRN PRN Administration Hypoglycemia Famotidine 10 mg 08/18/18 12:00 08/18/18 11:41 Pepcid IV 10 mg BID REJI Administration Hydrophilic Ointment 1 applic 08/17/18 06:20 Vaseline Lip Therapy TP Q2HR PRN Dry Lips Propofol 1,000 mg in 100 mls @ 5.1 mls/hr 08/17/18 07:00 Diprivan 10 Mg/Ml IV TITR REJI Protocol 5 MCG/KG/MIN Dopamine HCl/Dextrose 800 mg in 250 mls @ 3.563 mls/hr 08/17/18 08:30 08/18/18 15:10 Intropin Drip 800 Mg/D5w 250 Ml IV Infused TITR REJI Titration Protocol 2 MCG/KG/MIN Norepinephrine 4 mg in 250 mls @ 7.5 mls/hr 08/17/18 15:00 08/18/18 05:42 Levophed Drip 4 Mg/Ns 250 Ml IV 4 mcg/min TITR REJI 15 mls/hr Administration Protocol 2 MCG/MIN Vasopressin 20 unit/ Sodium 101 mls @ 9.09 mls/hr 08/17/18 16:00 08/18/18 12:24 Chloride IV 0.03 units/min TITR REJI 9.09 mls/hr Administration Protocol 0.03 UNITS/MIN Sodium Bicarbonate 150 meq/ 1,150 mls @ 125 mls/hr 08/17/18 16:00 08/18/18 10:39 Dextrose IV 08/20/18 01:11 125 mls/hr DIRECT REJI Administration Thiamine HCl 100 mg/ Folic 1,011.2 mls @ 250 mls/hr 08/18/18 12:00 Acid 1 mg/ Multivitamins/ IV 08/18/18 16:02 Minerals 10 ml/ Sodium ONCE ONE Chloride Cefepime HCl 0.5 gm/ Sodium 100 mls @ 200 mls/hr 08/18/18 14:00 Chloride IV Q8HR ERJI Protocol Phytonadione 10 mg/ Sodium 51 mls @ 100 mls/hr 08/18/18 16:00 Chloride IV 08/18/18 16:30 ONCE ONE Lactulose 20 gm 08/18/18 12:00 08/18/18 11:34 Cephulac PO 20 gm Q6HR REJI Administration Multi-Ingred Cream/Lotion/Oil/Oint 1 applic 08/17/18 06:20 Artificial Tears Ophth Oint OU Q4HR PRN Dry Eye(s) Ondansetron HCl 4 mg 08/17/18 02:57 08/17/18 04:32 Zofran IV 4 mg Q8H PRN Administration Nausea And Vomiting Pentoxifylline 400 mg 08/17/18 16:00 08/18/18 12:12 Trental PO 400 mg Q8HR REJI Administration Sodium Chloride 10 ml 08/17/18 10:00 08/17/18 23:27 Sodium Chloride Flush Syringe 10 Ml IV 10 ml BID REJI Administration Sodium Chloride 10 ml 08/17/18 02:57 Sodium Chloride Flush Syringe 10 Ml IV PRN PRN LINE FLUSH
[2018-08-18] MEDS ORDERED: VITAMIN K (ADULT ONLY) 10 MG in NACL 0.9% 50 ML IV ONE (16:00)
[2018-08-18] MEDS ORDERED: D10W 1,000 ML IV SCH (21:00)
[2018-08-18 21:04] LABS: Hematocrit 20.7 % (35.5-45.6); Hemoglobin 6.9 gm/dl (11.8-15.2); Mean Corpuscular HGB Conc 33 % (32-34); Red Blood Count 1.61 M/mm3 (3.65-5.03)
[2018-08-18 21:17] LABS: Mean Corpuscular Volume 129 fl (84-94); Red Cell Distribution Width 23.5 % (13.2-15.2)
[2018-08-18 21:22] LABS: Albumin 1.6 g/dL (3.9-5); Calcium 6.4 mg/dL (8.4-10.2)
[2018-08-18] MEDS: SODIUM CHLORIDE FLUSH SYRINGE 10 ML IV SCH ×2 (21:22→23:45)
[2018-08-18 22:06] LABS: Band Neutrophils # (Manual) 1.4 K/mm3; Basophils % (Manual) 0 % (0.0-1.8); Total Cells Counted 100
[2018-08-18 22:07] LABS: Anisocytosis 2+; Macrocytosis 2+
[2018-08-18 22:08] LABS: Burr Cells 2+; Hypochromasia 2+; Poikilocytosis 2+; Target Cells Few
[2018-08-18 22:09] LABS: Platelet Estimate Appears Decreased
[2018-08-18 22:10] LABS: Platelet Count 23 K/mm3 (140-440)
[2018-08-18] MEDS ORDERED: D50W (25GM) Vial IV ONE (23:00)
[2018-08-18] MEDS: MAXIPIME 0.5 GM in NACL 0.9% 100 ML IV SCH ×2 (23:43→23:44)
[2018-08-19] MEDS: D50W (25GM) Syringe IV PRN ×3 (00:33→07:55)
[2018-08-19 03:03] LABS: Hemoglobin 6.4 gm/dl (11.8-15.2)
[2018-08-19] MEDS: DUONEB *Not for PRN Use IH SCH ×2 (03:32→07:14)
[2018-08-19 03:37] LABS: Hematocrit 20.1 % (35.5-45.6)
[2018-08-19 03:42] LABS: INR > 17.67 (0.87-1.13)
--- NOTE | 2018-08-19 04:37 | XRay Report ---
PROCEDURE: XR CHEST 1V AP TECHNIQUE: Chest radiograph single view. HISTORY: follow up respiratory failure COMPARISONS: 08/18/2018 . FINDINGS: Heart: Normal. Mediastinum/Vessels: Normal. Lungs/Pleural space: There are bilateral perihilar and lower lobe infiltrates. There is no pneumotho rax.. Bony thorax: No acute osseous abnormality. Life support devices: Endotracheal tube is in the proximal trachea. NG tube is in the stomach. There is a left-sided PICC line. The tip is in the superior vena cava.. IMPRESSION: The heart size is normal.. There are bilateral perihilar and lower lobe infiltrates. There is no pneumothorax.. Endotracheal tube is in the proximal trachea. NG tube is in the stomach. There is a left-sided PICC l ine. The tip is in the superior vena cava.. This document is electronically signed by Blanco Jonas MD., Aug 19 2018 04:35:14 AM ET
[2018-08-19 04:44] LABS: Hemoglobin 6.4 gm/dl (11.8-15.2)
[2018-08-19 04:46] LABS: Hematocrit 20.4 % (35.5-45.6)
[2018-08-19] MEDS: CEPHULAC PO SCH ×2 (05:01→14:01)
[2018-08-19] MEDS: ALBURX 25% (ALBUMIN) IV SCH (05:01)
[2018-08-19] MEDS: MAXIPIME 0.5 GM in NACL 0.9% 100 ML IV SCH (05:01)
[2018-08-19] MEDS: LEVOPHED DRIP 4 MG/NS 250 ML 4 MG/250 ML BAG IV SCH ×3 (06:00→10:35)
[2018-08-19 06:15] LABS: INR > 17.67 (0.87-1.13)
[2018-08-19] MEDS ORDERED: NACL 0.9% 500 ML 500 ML IV ONE ×2 (06:44→07:10)
--- NOTE | 2018-08-19 07:33 | Event Note ---
Date: 08/19/18 Pt's platelet was PT/INR 124/17.67, H&H was 6.4/20.1, pt had petichei, echymosis and generalized edema with large blisters filled with fluid. GI (Jemal Valdez), was informed about pt's condition and acute bleeding, No intervention was proposed at this time due to pt's condition.
--- NOTE | 2018-08-19 10:23 | Progress Note ---
Assessment and Plan Assessment and plan: Patient is a 47-year-old man with history of chronic alcoholic liver disease who was brought to the ED via EMS for AMS, confusion. Per report, patient was brought from a nearby hotel due to confusion. While in ED, in went into cardiac arrest with PEA. He was emergently intubated and later successfully resuscitated. -Acute Liver Failure, poor prognosis: GI consulted and discussed with the team, patient according to them will not benefit from any aggressive input, continue current care -MSOF: brain,renal, liver, lung, heart, skin -Circulatory shock: start IV dopamine drip, until Central line obtained -Acute hepatic encephalopathy-On lactulose and rifaximin-GI consulted -Acute respiratory failure with hypoxia-Status post intubation on mechanical ventilator-Pulmonology consulted -Recurrent massive ascites-2/2 end-stage alcoholic chronic liver disease-IR consulted for paracentesis-Patient would benefit from albumin -SIRS with lactic acidosis, with organ dysfunction suspected Sepsis, poa- Probably secondary to SBP-On IV Rocephin-Paracentesis pending -ARF-ATN+Probably hepatorenal syndrome-Nephrology consulted -Acute on chronic hyponatremia-On fluid restriction, will monitor sodium level -Hypokalemia/Hypomagnesemia--On repletion, will monitor levels -Acute metabolic acidosis-will monitor bicarbonate level -Left pleural effusion, in liver failure -Hypoglycemia, he is dying-On dextrose IV fluid and hypoglycemic protocol -Severe protein calorie malnutrition-Dietitian consulted -h/o Chronic alcohol abuse-Patient continues to drink alcohol-He'll be placed on alcohol withdrawal protocol DVT prophylaxis with SCD Follow up Cardiac arrest. Patient is Doing very bad, I do NOT think patient will survive. I have asked for assistance in locating family/next of kin. Disposition: Patient will be admitted to the ICU. poor prognosis: Prolonged inpatient services 31 minutes Discussed with pulmonary late entry The high probability of a clinically significant, sudden or life threatening deterioration of the [pulmonary] system(s) required my full and direct attention, intervention and personal management. The aggregate critical care time was [45] minutes. This time is in addition to time spent performing reported procedures but includes the following: [x] Data Review and interpretation [x] Patient assessment and monitoring of vital signs [x] Documentation [x] Medication orders and management History Interval history: Patient seen and examined, unresponsive. no new complaints from nursing staff. Hospitalist Physical - Physical exam Narrative exam: General: Unresponsive, on MVS and not sedated, Anasarca NGT with coffee ground substance, icteric Sclera, juandice HEENT: Pupils fixed and dilated, bleeding Respiratory: Agonal breathing, DIMINISHED Cardiac: Regular, no murmur Severe abd distension with Ascites, hypoactive BS Msk: leg edema, pitting edema, mottled Neurology: Not responding neurologically - Constitutional Vitals: Temp Pulse Resp BP Pulse Ox 97.8 F 103 H 30 H 80/53 71 L 08/19/18 08:00 08/19/18 08:45 08/19/18 08:45 08/19/18 08:45 08/19/18 05:40 General appearance: Present: cachectic, other (Intubated, unresponsive to voice) Results - Labs CBC & Chem 7: 08/19/18 04:20 08/18/18 20:53 Labs: Laboratory Last Values WBC 2.7 K/mm3 (4.5-11.0) L 08/18/18 20:53 RBC 1.61 M/mm3 (3.65-5.03) L 08/18/18 20:53 Hgb 6.4 gm/dl (11.8-15.2) L 08/19/18 04:20 Hct 20.4 % (35.5-45.6) L 08/19/18 04:20 MCV 129 fl (84-94) H 08/18/18 20:53 MCH 43 pg (28-32) H 08/18/18 20:53 MCHC 33 % (32-34) 08/18/18 20:53 RDW 23.5 % (13.2-15.2) H 08/18/18 20:53 Plt Count 23 K/mm3 (140-440) L 08/18/18 20:53 Add Manual Diff Complete 08/18/18 20:53 Total Counted 100 08/18/18 20:53 Seg Neuts % (Manual) 21.0 % (40.0-70.0) L 08/18/18 20:53 Band Neutrophils % 52.0 % 08/18/18 20:53 Lymphocytes % (Manual) 17.0 % (13.4-35.0) 08/18/18 20:53 Reactive Lymphs % (Man) 1.0 % 08/18/18 20:53 Monocytes % (Manual) 6.0 % (0.0-7.3) 08/18/18 20:53 Eosinophils % (Manual) 1.0 % (0.0-4.3) 08/18/18 20:53 Basophils % (Manual) 0 % (0.0-1.8) 08/18/18 20:53 Metamyelocytes % 2.0 % 08/18/18 20:53 Myelocytes % 0 % 08/18/18 20:53 Promyelocytes % 0 % 08/18/18 20:53 Blast Cells % 0 % 08/18/18 20:53 Nucleated RBC % 29.0 % (0.0-0.9) H 08/18/18 20:53 Seg Neutrophils # Man 0.6 K/mm3 (1.8-7.7) L 08/18/18 20:53 Band Neutrophils # 1.4 K/mm3 08/18/18 20:53 Lymphocytes # (Manual) 0.5 K/mm3 (1.2-5.4) L 08/18/18 20:53 Abs React Lymphs (Man) 0.0 K/mm3 08/18/18 20:53 Monocytes # (Manual) 0.2 K/mm3 (0.0-0.8) 08/18/18 20:53 Eosinophils # (Manual) 0.0 K/mm3 (0.0-0.4) 08/18/18 20:53 Basophils # (Manual) 0.0 K/mm3 (0.0-0.1) 08/18/18 20:53 Metamyelocytes # 0.1 K/mm3 08/18/18 20:53 Myelocytes # 0.0 K/mm3 08/18/18 20:53 Promyelocytes # 0.0 K/mm3 08/18/18 20:53 Blast Cells # 0.0 K/mm3 08/18/18 20:53 WBC Morphology Not Reportable 08/18/18 20:53 Hypersegmented Neuts Not Reportable 08/18/18 20:53 Hyposegmented Neuts Not Reportable 08/18/18 20:53 Hypogranular Neuts Not Reportable 08/18/18 20:53 Smudge Cells Not Reportable 08/18/18 20:53 Toxic Granulation Not Reportable 08/18/18 20:53 Toxic Vacuolation Not Reportable 08/18/18 20:53 Dohle Bodies Not Reportable 08/18/18 20:53 Pelger-Huet Anomaly Not Reportable 08/18/18 20:53 Jose Rods Not Reportable 08/18/18 20:53 Platelet Estimate Appears decreased 08/18/18 20:53 Clumped Platelets Not Reportable 08/18/18 20:53 Plt Clumps, EDTA Not Reportable 08/18/18 20:53 Large Platelets Not Reportable 08/18/18 20:53 Giant Platelets Not Reportable 08/18/18 20:53 Platelet Satelliting Not Reportable 08/18/18 20:53 Plt Morphology Comment Not Reportable 08/18/18 20:53 RBC Morphology Not Reportable 08/18/18 20:53 Dimorphic RBCs Not Reportable 08/18/18 20:53 Polychromasia 1+ 08/18/18 20:53 Hypochromasia 2+ 08/18/18 20:53 Poikilocytosis 2+ 08/18/18 20:53 Anisocytosis 2+ 08/18/18 20:53 Microcytosis Not Reportable 08/18/18 20:53 Macrocytosis 2+ 08/18/18 20:53 Spherocytes Not Reportable 08/18/18 20:53 Pappenheimer Bodies Not Reportable 08/18/18 20:53 Sickle Cells Not Reportable 08/18/18 20:53 Target Cells Few 08/18/18 20:53 Tear Drop Cells Not Reportable 08/18/18 20:53 Ovalocytes Not Reportable 08/18/18 20:53 Helmet Cells Not Reportable 08/18/18 20:53 [place] Bodies Not Reportable 08/18/18 20:53 [place] Rings Not Reportable 08/18/18 20:53 [place] Cells 2+ 08/18/18 20:53 Bite Cells Not Reportable 08/18/18 20:53 Crenated Cell Not Reportable 08/18/18 20:53 Elliptocytes Not Reportable 08/18/18 20:53 Acanthocytes (Spur) Not Reportable 08/18/18 20:53 Rouleaux Not Reportable 08/18/18 20:53 Hemoglobin C Crystals Not Reportable 08/18/18 20:53 Schistocytes Not Reportable 08/18/18 20:53 Malaria parasites Not Reportable 08/18/18 20:53 [place] Bodies Not Reportable 08/18/18 20:53 Hem Pathologist Commnt No 08/18/18 20:53 PT > 120.0 Sec. (12.2-14.9) H 08/19/18 04:20 INR > 17.67 (0.87-1.13) H* 08/19/18 04:20 APTT 47.6 Sec. (24.2-36.6) H 08/17/18 00:30 POC ABG pH 7.064 (7.35-7.45) L 08/19/18 05:57 POC ABG pCO2 35.5 (35-45) 08/19/18 05:57 POC ABG pO2 52 (80-105) L 08/19/18 05:57 POC ABG HCO3 10.1 (22-26 mml/L) 08/19/18 05:57 POC ABG Total CO2 11 (23-27mmol/L) 08/19/18 05:57 POC ABG O2 Sat 71 08/19/18 05:57 POC ABG Base Excess -20 ((-2) - (+3)mmol/L) 08/19/18 05:57 FiO2 100 % 08/19/18 05:57 Sodium 123 mmol/L (137-145) L 08/18/18 20:53 Potassium 3.8 mmol/L (3.6-5.0) 08/18/18 20:53 Chloride 75.6 mmol/L (98-107) L 08/18/18 20:53 Carbon Dioxide 13 mmol/L (22-30) L 08/18/18 20:53 Anion Gap 38 mmol/L 08/18/18 20:53 BUN 9 mg/dL (9-20) 08/18/18 20:53 Creatinine 2.6 mg/dL (0.8-1.5) H D 08/18/18 20:53 Estimated GFR 26 ml/min 08/18/18 20:53 BUN/Creatinine Ratio 3 % 08/18/18 20:53 Glucose 65 mg/dL (75-100) L 08/18/18 20:53 POC Glucose < 40 (70-105) L 08/19/18 10:01 Lactic Acid 20.20 mmol/L (0.7-2.0) H* 08/17/18 18:20 Calcium 6.4 mg/dL (8.4-10.2) L 08/18/18 20:53 Magnesium 1.80 mg/dL (1.7-2.3) 08/18/18 04:46 Total Bilirubin 12.00 mg/dL (0.1-1.2) H 08/18/18 20:53 Direct Bilirubin 7.2 mg/dL (0-0.2) H 08/17/18 00:30 Indirect Bilirubin 6.2 mg/dL 08/17/18 00:30 AST 2987 units/L (5-40) H 08/18/18 20:53 ALT 493 units/L (7-56) H 08/18/18 20:53 Alkaline Phosphatase 63 units/L (35-129) 08/18/18 20:53 Ammonia 225.0 umol/L (25-60) H 08/19/18 04:20 Troponin T < 0.010 ng/mL (0.00-0.029) 08/17/18 15:16 C-Reactive Protein 2.30 mg/dL (0.00-1.30) H 08/17/18 15:16 Total Protein 4.1 g/dL (6.3-8.2) L D 08/18/18 20:53 Albumin 1.6 g/dL (3.9-5) L 08/18/18 20:53 Albumin/Globulin Ratio 0.6 % 08/18/18 20:53 Urine Color Red (Yellow) 08/17/18 02:00 Urine Turbidity Cloudy (Clear) 08/17/18 02:00 Urine pH 5.0 (5.0-7.0) 08/17/18 02:00 Ur Specific [place] 1.013 (1.003-1.030) 08/17/18 02:00 Urine Protein 30 mg/dl mg/dL (Negative) 08/17/18 02:00 Urine Glucose (UA) Neg mg/dL (Negative) 08/17/18 02:00 Urine Ketones Neg mg/dL (Negative) 08/17/18 02:00 Urine Blood Lg (Negative) 08/17/18 02:00 Urine Nitrite Neg (Negative) 08/17/18 02:00 Urine Bilirubin Sm (Negative) 08/17/18 02:00 Urine Ictotest Positive (Negative) 08/17/18 02:00 Urine Urobilinogen 4.0 mg/dL (<2.0) 08/17/18 02:00 Ur Leukocyte Esterase Neg (Negative) 08/17/18 02:00 Urine WBC (Auto) 7.0 /HPF (0.0-6.0) H 08/17/18 02:00 Urine RBC (Auto) 11.0 /HPF (0.0-6.0) 08/17/18 02:00 U Epithel Cells (Auto) 1.0 /HPF (0-13.0) 08/17/18 02:00 Urine Bacteria (Auto) 2+ /HPF (Negative) 08/17/18 02:00 Amorphous Crystals 2+ 08/17/18 02:00 Hyaline Casts 7 /LPF 08/17/18 02:00 Granular Casts 10 /LPF 08/17/18 02:00 Urine Mucus 3+ /HPF 08/17/18 02:00 Urine Creatinine 215.1 mg/dL (0.1-20.0) H 08/17/18 16:47 Urine Sodium 13 mmol/L 08/17/18 16:47 Urine Total Protein 183 mg/dL (5-11.8) H 08/17/18 16:47 Plasma/Serum Alcohol < 0.01 % (0-0.07) 08/17/18 00:30 Blood Type O POSITIVE 08/19/18 07:30 Antibody Screen Negative 08/19/18 07:30 Crossmatch See Detail 08/19/18 07:30 Active Medications - Current Medications Current Medications: Generic Name Dose Route Start Last Admin Trade Name Freq PRN Reason Stop Dose Admin Albumin Human 12.5 gm 08/19/18 10:22 Alburx 25% (Albumin) IV 08/19/18 10:23 ONCE ONE Albuterol/Ipratropium 1 ampul 08/17/18 08:00 08/19/18 07:14 Duoneb *Not For Prn Use* IH 1 ampul TIDRT REJI Administration Dextrose 50 ml 08/18/18 10:47 08/19/18 07:55 D50w (25gm) Syringe IV 50 ml PRN PRN Administration Hypoglycemia Famotidine 10 mg 08/18/18 12:00 08/18/18 21:10 Pepcid IV 10 mg BID REJI Administration Hydrophilic Ointment 1 applic 08/17/18 06:20 Vaseline Lip Therapy TP Q2HR PRN Dry Lips Propofol 1,000 mg in 100 mls @ 5.1 mls/hr 08/17/18 07:00 Diprivan 10 Mg/Ml IV TITR REJI Protocol 5 MCG/KG/MIN Dopamine HCl/Dextrose 800 mg in 250 mls @ 3.563 mls/hr 08/17/18 08:30 08/18/18 21:07 Intropin Drip 800 Mg/D5w 250 Ml IV 5 mcg/kg/min TITR REJI 8.906 mls/hr Administration Protocol 2 MCG/KG/MIN Norepinephrine 4 mg in 250 mls @ 7.5 mls/hr 08/17/18 15:00 08/19/18 08:42 Levophed Drip 4 Mg/Ns 250 Ml IV 30 mcg/min TITR REJI 112.5 mls/hr Administration Protocol 2 MCG/MIN Vasopressin 20 unit/ Sodium 101 mls @ 9.09 mls/hr 08/17/18 16:00 08/18/18 12:24 Chloride IV 0.03 units/min TITR REJI 9.09 mls/hr Administration Protocol 0.03 UNITS/MIN Sodium Bicarbonate 150 meq/ 1,150 mls @ 125 mls/hr 08/17/18 16:00 08/18/18 10:39 Dextrose IV 08/20/18 01:11 125 mls/hr DIRECT REJI Administration Cefepime HCl 0.5 gm/ Sodium 100 mls @ 200 mls/hr 08/18/18 14:00 08/19/18 05:01 Chloride IV 200 mls/hr Q8HR REJI Administration Protocol Dextrose 1,000 mls @ 75 mls/hr 08/18/18 21:00 08/18/18 21:01 D10w IV 50 mls/hr DIRECT REJI Administration Lactulose 20 gm 08/18/18 12:00 08/19/18 05:01 Cephulac PO 20 gm Q6HR REJI Administration Multi-Ingred Cream/Lotion/Oil/Oint 1 applic 08/17/18 06:20 Artificial Tears Ophth Oint OU Q4HR PRN Dry Eye(s) Ondansetron HCl 4 mg 08/17/18 02:57 08/17/18 04:32 Zofran IV 4 mg Q8H PRN Administration Nausea And Vomiting Pentoxifylline 400 mg 08/17/18 16:00 08/18/18 23:46 Trental PO Not Given Q8HR REJI Sodium Chloride 10 ml 08/17/18 10:00 08/18/18 23:45 Sodium Chloride Flush Syringe 10 Ml IV 10 ml BID REJI Administration Sodium Chloride 10 ml 08/17/18 02:57 Sodium Chloride Flush Syringe 10 Ml IV PRN PRN LINE FLUSH Nutrition/Malnutrition Assess - Dietary Evaluation Nutrition/Malnutrition Findings: Nutrition Notes Start: 08/17/18 09:45 Freq: Status: Active Protocol: Document 08/18/18 09:25 KILEY (Rec: 08/18/18 09:28 KILEY [email or web address]) Nutrition Notes 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 Pt currently being followed by RD. Awaiting TF consult when medically feasible. Nutrition Intervention Follow-Up By: 08/20/18 Additional Comments F/U: TF consult, vent status
--- NOTE | 2018-08-19 10:44 | Progress Note ---
Assessment and Plan Assessment and plan: Patient is a 47-year-old man with history of chronic alcoholic liver disease who was brought to the ED via EMS for AMS, confusion. Per report, patient was brought from a nearby hotel due to confusion. While in ED, in went into cardiac arrest with PEA. He was emergently intubated and later successfully resuscitated. patient unfortunately has declined significantly with evidence of cardiopulmon spencer-hepatorenal failure consistent with multi-organ failure. Extensive coagulopathy not responsive to Vitamin K Patient is persistently hypoglycemic Despite Dextrose fluids, Will give bolus Will give Additional vitamin K and FFP today -Acute Liver Failure, poor prognosis: GI consulted and discussed with the team, patient according to them will not benefit from any aggressive input, continue current care -MSOF: brain,renal, liver, lung, heart, skin -Circulatory shock: Continue IV dopamine drip, -Acute hepatic encephalopathy-On lactulose and rifaximin-GI consulted -Acute respiratory failure with hypoxia-Status post intubation on mechanical ventilator-Pulmonology consulted -Recurrent massive ascites-2/2 end-stage alcoholic chronic liver disease-IR consulted for paracentesis-Patient would benefit from albumin -SIRS with lactic acidosis, with organ dysfunction suspected Sepsis, poa- Probably secondary to SBP-On IV Rocephin-Paracentesis pending -ARF-ATN+Probably hepatorenal syndrome-Nephrology consulted -Acute on chronic hyponatremia-On fluid restriction, will monitor sodium level -Hypokalemia/Hypomagnesemia--On repletion, will monitor levels -Acute metabolic acidosis-will monitor bicarbonate level -Left pleural effusion, in liver failure -Hypoglycemia, he is dying-On dextrose IV fluid and hypoglycemic protocol -Severe protein calorie malnutrition-Dietitian consulted -h/o Chronic alcohol abuse-Patient continues to drink alcohol-HE WAS PLACED ON CIWA DVT prophylaxis with SCD Follow up Cardiac arrest. Patient is Doing very bad, I do NOT think patient will survive. I have asked for assistance in locating family/next of kin, still awaiting. Patient unfortunately is actively , Ethics has been consulted. CARE IS FUTILE Disposition: Patient will be admitted to the ICU. poor prognosis: Prolonged inpatient services 31 minutes Discussed with pulmonary The high probability of a clinically significant, sudden or life threatening deterioration of the [pulmonary] system(s) required my full and direct attention, intervention and personal management. The aggregate critical care time was [45] minutes. This time is in addition to time spent performing reported procedures but includes the following: [x] Data Review and interpretation [x] Patient assessment and monitoring of vital signs [x] Documentation [x] Medication orders and management History Interval history: Patient seen and examined, unresponsive. worsening mottling of the skin, severe anemia, awaiting transfusion, very hypotensive despite maxed out pressors. multiple attempt to reach family has not yeilded any result Hospitalist Physical - Physical exam Narrative exam: General: Unresponsive, on MVS and not sedated, Anasarca NGT with coffee ground substance, icteric Sclera, juandice HEENT: Pupils fixed and dilated, bleeding Respiratory: Agonal breathing, DIMINISHED Cardiac: Regular, no murmur Severe abd distension with Ascites, hypoactive BS Msk: leg edema, pitting edema, mottled, scrotal edema Neurology: Not responding neurologically SKIN: Muttled, bleeding diathesis from multiple oricfice - Constitutional Vitals: Temp Pulse Resp BP Pulse Ox 97.8 F 103 H 30 H 80/53 71 L 08/19/18 08:00 08/19/18 08:45 08/19/18 08:45 08/19/18 08:45 08/19/18 05:40 General appearance: Present: cachectic, other (Intubated, unresponsive to voice) Results - Labs CBC & Chem 7: 08/19/18 04:20 08/18/18 20:53 Labs: Laboratory Last Values WBC 2.7 K/mm3 (4.5-11.0) L 08/18/18 20:53 RBC 1.61 M/mm3 (3.65-5.03) L 08/18/18 20:53 Hgb 6.4 gm/dl (11.8-15.2) L 08/19/18 04:20 Hct 20.4 % (35.5-45.6) L 08/19/18 04:20 MCV 129 fl (84-94) H 08/18/18 20:53 MCH 43 pg (28-32) H 08/18/18 20:53 MCHC 33 % (32-34) 08/18/18 20:53 RDW 23.5 % (13.2-15.2) H 08/18/18 20:53 Plt Count 23 K/mm3 (140-440) L 08/18/18 20:53 Add Manual Diff Complete 08/18/18 20:53 Total Counted 100 08/18/18 20:53 Seg Neuts % (Manual) 21.0 % (40.0-70.0) L 08/18/18 20:53 Band Neutrophils % 52.0 % 08/18/18 20:53 Lymphocytes % (Manual) 17.0 % (13.4-35.0) 08/18/18 20:53 Reactive Lymphs % (Man) 1.0 % 08/18/18 20:53 Monocytes % (Manual) 6.0 % (0.0-7.3) 08/18/18 20:53 Eosinophils % (Manual) 1.0 % (0.0-4.3) 08/18/18 20:53 Basophils % (Manual) 0 % (0.0-1.8) 08/18/18 20:53 Metamyelocytes % 2.0 % 08/18/18 20:53 Myelocytes % 0 % 08/18/18 20:53 Promyelocytes % 0 % 08/18/18 20:53 Blast Cells % 0 % 08/18/18 20:53 Nucleated RBC % 29.0 % (0.0-0.9) H 08/18/18 20:53 Seg Neutrophils # Man 0.6 K/mm3 (1.8-7.7) L 08/18/18 20:53 Band Neutrophils # 1.4 K/mm3 08/18/18 20:53 Lymphocytes # (Manual) 0.5 K/mm3 (1.2-5.4) L 08/18/18 20:53 Abs React Lymphs (Man) 0.0 K/mm3 08/18/18 20:53 Monocytes # (Manual) 0.2 K/mm3 (0.0-0.8) 08/18/18 20:53 Eosinophils # (Manual) 0.0 K/mm3 (0.0-0.4) 08/18/18 20:53 Basophils # (Manual) 0.0 K/mm3 (0.0-0.1) 08/18/18 20:53 Metamyelocytes # 0.1 K/mm3 08/18/18 20:53 Myelocytes # 0.0 K/mm3 08/18/18 20:53 Promyelocytes # 0.0 K/mm3 08/18/18 20:53 Blast Cells # 0.0 K/mm3 08/18/18 20:53 WBC Morphology Not Reportable 08/18/18 20:53 Hypersegmented Neuts Not Reportable 08/18/18 20:53 Hyposegmented Neuts Not Reportable 08/18/18 20:53 Hypogranular Neuts Not Reportable 08/18/18 20:53 Smudge Cells Not Reportable 08/18/18 20:53 Toxic Granulation Not Reportable 08/18/18 20:53 Toxic Vacuolation Not Reportable 08/18/18 20:53 Dohle Bodies Not Reportable 08/18/18 20:53 Pelger-Huet Anomaly Not Reportable 08/18/18 20:53 Jose Rods Not Reportable 08/18/18 20:53 Platelet Estimate Appears decreased 08/18/18 20:53 Clumped Platelets Not Reportable 08/18/18 20:53 Plt Clumps, EDTA Not Reportable 08/18/18 20:53 Large Platelets Not Reportable 08/18/18 20:53 Giant Platelets Not Reportable 08/18/18 20:53 Platelet Satelliting Not Reportable 08/18/18 20:53 Plt Morphology Comment Not Reportable 08/18/18 20:53 RBC Morphology Not Reportable 08/18/18 20:53 Dimorphic RBCs Not Reportable 08/18/18 20:53 Polychromasia 1+ 08/18/18 20:53 Hypochromasia 2+ 08/18/18 20:53 Poikilocytosis 2+ 08/18/18 20:53 Anisocytosis 2+ 08/18/18 20:53 Microcytosis Not Reportable 08/18/18 20:53 Macrocytosis 2+ 08/18/18 20:53 Spherocytes Not Reportable 08/18/18 20:53 Pappenheimer Bodies Not Reportable 08/18/18 20:53 Sickle Cells Not Reportable 08/18/18 20:53 Target Cells Few 08/18/18 20:53 Tear Drop Cells Not Reportable 08/18/18 20:53 Ovalocytes Not Reportable 08/18/18 20:53 Helmet Cells Not Reportable 08/18/18 20:53 Watts-Strafford Bodies Not Reportable 08/18/18 20:53 [place] Rings Not Reportable 08/18/18 20:53 Little Neck Cells 2+ 08/18/18 20:53 Bite Cells Not Reportable 08/18/18 20:53 Crenated Cell Not Reportable 08/18/18 20:53 Elliptocytes Not Reportable 08/18/18 20:53 Acanthocytes (Spur) Not Reportable 08/18/18 20:53 Rouleaux Not Reportable 08/18/18 20:53 Hemoglobin C Crystals Not Reportable 08/18/18 20:53 Schistocytes Not Reportable 08/18/18 20:53 Malaria parasites Not Reportable 08/18/18 20:53 Kush Bodies Not Reportable 08/18/18 20:53 Hem Pathologist Commnt No 08/18/18 20:53 PT > 120.0 Sec. (12.2-14.9) H 08/19/18 04:20 INR > 17.67 (0.87-1.13) H* 08/19/18 04:20 APTT 47.6 Sec. (24.2-36.6) H 08/17/18 00:30 POC ABG pH 7.064 (7.35-7.45) L 08/19/18 05:57 POC ABG pCO2 35.5 (35-45) 08/19/18 05:57 POC ABG pO2 52 (80-105) L 08/19/18 05:57 POC ABG HCO3 10.1 (22-26 mml/L) 08/19/18 05:57 POC ABG Total CO2 11 (23-27mmol/L) 08/19/18 05:57 POC ABG O2 Sat 71 08/19/18 05:57 POC ABG Base Excess -20 ((-2) - (+3)mmol/L) 08/19/18 05:57 FiO2 100 % 08/19/18 05:57 Sodium 123 mmol/L (137-145) L 08/18/18 20:53 Potassium 3.8 mmol/L (3.6-5.0) 08/18/18 20:53 Chloride 75.6 mmol/L (98-107) L 08/18/18 20:53 Carbon Dioxide 13 mmol/L (22-30) L 08/18/18 20:53 Anion Gap 38 mmol/L 08/18/18 20:53 BUN 9 mg/dL (9-20) 08/18/18 20:53 Creatinine 2.6 mg/dL (0.8-1.5) H D 08/18/18 20:53 Estimated GFR 26 ml/min 08/18/18 20:53 BUN/Creatinine Ratio 3 % 08/18/18 20:53 Glucose 65 mg/dL (75-100) L 08/18/18 20:53 POC Glucose < 40 (70-105) L 08/19/18 10:01 Lactic Acid 20.20 mmol/L (0.7-2.0) H* 08/17/18 18:20 Calcium 6.4 mg/dL (8.4-10.2) L 08/18/18 20:53 Magnesium 1.80 mg/dL (1.7-2.3) 08/18/18 04:46 Total Bilirubin 12.00 mg/dL (0.1-1.2) H 08/18/18 20:53 Direct Bilirubin 7.2 mg/dL (0-0.2) H 08/17/18 00:30 Indirect Bilirubin 6.2 mg/dL 08/17/18 00:30 AST 2987 units/L (5-40) H 08/18/18 20:53 ALT 493 units/L (7-56) H 08/18/18 20:53 Alkaline Phosphatase 63 units/L (35-129) 08/18/18 20:53 Ammonia 225.0 umol/L (25-60) H 08/19/18 04:20 Troponin T < 0.010 ng/mL (0.00-0.029) 08/17/18 15:16 C-Reactive Protein 2.30 mg/dL (0.00-1.30) H 08/17/18 15:16 Total Protein 4.1 g/dL (6.3-8.2) L D 08/18/18 20:53 Albumin 1.6 g/dL (3.9-5) L 08/18/18 20:53 Albumin/Globulin Ratio 0.6 % 08/18/18 20:53 Urine Color Red (Yellow) 08/17/18 02:00 Urine Turbidity Cloudy (Clear) 08/17/18 02:00 Urine pH 5.0 (5.0-7.0) 08/17/18 02:00 Ur Specific [place] 1.013 (1.003-1.030) 08/17/18 02:00 Urine Protein 30 mg/dl mg/dL (Negative) 08/17/18 02:00 Urine Glucose (UA) Neg mg/dL (Negative) 08/17/18 02:00 Urine Ketones Neg mg/dL (Negative) 08/17/18 02:00 Urine Blood Lg (Negative) 08/17/18 02:00 Urine Nitrite Neg (Negative) 08/17/18 02:00 Urine Bilirubin Sm (Negative) 08/17/18 02:00 Urine Ictotest Positive (Negative) 08/17/18 02:00 Urine Urobilinogen 4.0 mg/dL (<2.0) 08/17/18 02:00 Ur Leukocyte Esterase Neg (Negative) 08/17/18 02:00 Urine WBC (Auto) 7.0 /HPF (0.0-6.0) H 08/17/18 02:00 Urine RBC (Auto) 11.0 /HPF (0.0-6.0) 08/17/18 02:00 U Epithel Cells (Auto) 1.0 /HPF (0-13.0) 08/17/18 02:00 Urine Bacteria (Auto) 2+ /HPF (Negative) 08/17/18 02:00 Amorphous Crystals 2+ 08/17/18 02:00 Hyaline Casts 7 /LPF 08/17/18 02:00 Granular Casts 10 /LPF 08/17/18 02:00 Urine Mucus 3+ /HPF 08/17/18 02:00 Urine Creatinine 215.1 mg/dL (0.1-20.0) H 08/17/18 16:47 Urine Sodium 13 mmol/L 08/17/18 16:47 Urine Total Protein 183 mg/dL (5-11.8) H 08/17/18 16:47 Plasma/Serum Alcohol < 0.01 % (0-0.07) 08/17/18 00:30 Blood Type O POSITIVE 08/19/18 07:30 Antibody Screen Negative 08/19/18 07:30 Crossmatch See Detail 08/19/18 07:30 Active Medications - Current Medications Current Medications: Generic Name Dose Route Start Last Admin Trade Name Freq PRN Reason Stop Dose Admin Albumin Human 12.5 gm 08/19/18 11:00 Alburx 25% (Albumin) IV 08/19/18 11:01 ONCE ONE Albuterol/Ipratropium 1 ampul 08/17/18 08:00 08/19/18 07:14 Duoneb *Not For Prn Use* IH 1 ampul TIDRT REJI Administration Dextrose 50 ml 08/18/18 10:47 08/19/18 07:55 D50w (25gm) Syringe IV 50 ml PRN PRN Administration Hypoglycemia Famotidine 10 mg 08/18/18 12:00 08/18/18 21:10 Pepcid IV 10 mg BID REJI Administration Hydrophilic Ointment 1 applic 08/17/18 06:20 Vaseline Lip Therapy TP Q2HR PRN Dry Lips Propofol 1,000 mg in 100 mls @ 5.1 mls/hr 08/17/18 07:00 Diprivan 10 Mg/Ml IV TITR REJI Protocol 5 MCG/KG/MIN Dopamine HCl/Dextrose 800 mg in 250 mls @ 3.563 mls/hr 08/17/18 08:30 08/18/18 21:07 Intropin Drip 800 Mg/D5w 250 Ml IV 5 mcg/kg/min TITR REJI 8.906 mls/hr Administration Protocol 2 MCG/KG/MIN Norepinephrine 4 mg in 250 mls @ 7.5 mls/hr 08/17/18 15:00 08/19/18 10:35 Levophed Drip 4 Mg/Ns 250 Ml IV 30 mcg/min TITR REJI 112.5 mls/hr Administration Protocol 2 MCG/MIN Vasopressin 20 unit/ Sodium 101 mls @ 9.09 mls/hr 08/17/18 16:00 08/18/18 12:24 Chloride IV 0.03 units/min TITR REJI 9.09 mls/hr Administration Protocol 0.03 UNITS/MIN Sodium Bicarbonate 150 meq/ 1,150 mls @ 125 mls/hr 08/17/18 16:00 08/18/18 10:39 Dextrose IV 08/20/18 01:11 125 mls/hr DIRECT REJI Administration Cefepime HCl 0.5 gm/ Sodium 100 mls @ 200 mls/hr 08/18/18 14:00 08/19/18 05:01 Chloride IV 200 mls/hr Q8HR REJI Administration Protocol Dextrose 1,000 mls @ 75 mls/hr 08/18/18 21:00 08/18/18 21:01 D10w IV 50 mls/hr DIRECT REJI Administration Phytonadione 10 mg/ Sodium 51 mls @ 100 mls/hr 08/19/18 11:00 Chloride IV 08/19/18 11:30 ONCE ONE Lactulose 20 gm 08/18/18 12:00 08/19/18 05:01 Cephulac PO 20 gm Q6HR REJI Administration Multi-Ingred Cream/Lotion/Oil/Oint 1 applic 08/17/18 06:20 Artificial Tears Ophth Oint OU Q4HR PRN Dry Eye(s) Ondansetron HCl 4 mg 08/17/18 02:57 08/17/18 04:32 Zofran IV 4 mg Q8H PRN Administration Nausea And Vomiting Pentoxifylline 400 mg 08/17/18 16:00 08/18/18 23:46 Trental PO Not Given Q8HR REJI Sodium Chloride 10 ml 08/17/18 10:00 08/18/18 23:45 Sodium Chloride Flush Syringe 10 Ml IV 10 ml BID REJI Administration Sodium Chloride 10 ml 08/17/18 02:57 Sodium Chloride Flush Syringe 10 Ml IV PRN PRN LINE FLUSH Nutrition/Malnutrition Assess - Dietary Evaluation Nutrition/Malnutrition Findings: Nutrition Notes Start: 08/17/18 09:45 Freq: Status: Active Protocol: Document 08/18/18 09:25 KILEY (Rec: 08/18/18 09:28 [facility] [email or web address]) Nutrition Notes Need for Assessment generated from: body coverer Initial or Follow up Brief Note Current Diet NPO Subjective/Other Information Pt screened for skin risk ( Surinder score: 8) and chewing difficulty. Pt currently being followed by RD. Awaiting TF consult when medically feasible. Nutrition Intervention Follow-Up By: 08/20/18 Additional Comments F/U: TF consult, vent status - Attestation Statement I have reviewed and agreed w/ Malnutrition eval & tx plan: Yes
[2018-08-19] MEDS ORDERED: VITAMIN K (ADULT ONLY) 10 MG in NACL 0.9% 50 ML IV ONE (11:00)
[2018-08-19] MEDS ORDERED: ALBURX 25% (ALBUMIN) IV ONE (11:00)
[2018-08-19] MEDS ORDERED: ADRENALIN ONE (11:15)
[2018-08-19] MEDS ORDERED: CALCIUM CHLORIDE IV ONE (11:15)
--- NOTE | 2018-08-19 11:31 | Event Note ---
Date: 08/19/18 Code blue called. Bradycardia inital rhythm, atropin given, became asytole. Full ACLS implemented, with Epi, calcium, sodium bicarb, and dextros given in addition to CPR and was resuscitated. Sinus rythm with occassional PVC obtained. Fluid Bolus aslo given during code. still no family grave prognosis.
--- NOTE | 2018-08-19 11:35 | Progress Note ---
Assessment and Plan s/p Cardiopulmonary arrest with ROSC -Acute respiratory failure with hypoxia -Acute Liver Failure, poor prognosis -Severe sepsis with septic shock -MSOF -Circulatory shock -Acute hepatic encephalopathy -Recurrent massive ascites-2/2 end-stage alcoholic chronic liver disease -SIRS with lactic acidosis, with organ dysfunction suspected Sepsis -ARF-ATN+Probably hepatorenal syndrome -Acute on chronic hyponatremia -Hypokalemia/Hypomagnesemia -Acute metabolic acidosis -Left pleural effusion -Hypoglycemia -Severe protein calorie malnutrition -h/o Chronic alcohol abuse- -Supportive care Anticipate he will have another arrest, and may not have ROSC. Discussed extensively with the hospitalist service, RT and RN. Subjective Date of service: 08/19/18 Principal diagnosis: FLORES Interval history: Follow up for: Cardiopulmoanry arrest, severe sepsis with septic shock, hepatic failure, acute hypoxic respiratory failure Seen and examined. Vitals, labs, medications, chart reviewed. Overnight events managed by me remotely. Continues to deteriorate, more coagulopathic, remains on critical infusions with on going decompensation with his hemodynamics, remains unresponsive,pupils remain fixed and dilated. Remains on MVS. Still unable to contact any family Code blue this morning, with ROSC Objective - Exam Narrative Exam: General: Unresponsive, on MVS and not sedated, Anasarca NGT with coffee ground substance, icteric Sclera, jaundice HEENT: Pupils fixed and dilated, bleeding Respiratory: Agonal breathing, DIMINISHED Cardiac: Regular, no murmur, S1,S2 Severe abd distension with Ascites, hypoactive BS Msk: leg edema, pitting edema, mottled, scrotal edema Neurology: Not responding neurologically SKIN: Mottled, bleeding diathesis from multiple orifices Vital Signs - 12hr 08/18/18 08/19/18 08/19/18 23:45 00:00 00:15 Temperature 92.8 F L Pulse Rate 96 H 97 H 95 H Pulse Rate [ Anterior Bilateral Throughout] Pulse Rate [ From Monitor] Respiratory 30 H 30 H 30 H Rate Respiratory Rate [Anterior Bilateral Throughout] Blood Pressure 100/44 124/52 124/52 O2 Sat by Pulse 82 L 82 L 81 L Oximetry 08/19/18 08/19/18 08/19/18 00:30 00:45 01:00 Temperature Pulse Rate 96 H 97 H 94 H Pulse Rate [ Anterior Bilateral Throughout] Pulse Rate [ 94 H From Monitor] Respiratory 24 30 H 30 H Rate Respiratory Rate [Anterior Bilateral Throughout] Blood Pressure 118/69 118/69 107/56 O2 Sat by Pulse 80 L 73 L Oximetry 08/19/18 08/19/18 08/19/18 01:15 01:30 01:45 Temperature Pulse Rate 94 H 95 H 95 H Pulse Rate [ Anterior Bilateral Throughout] Pulse Rate [ From Monitor] Respiratory 30 H 30 H 30 H Rate Respiratory Rate [Anterior Bilateral Throughout] Blood Pressure 107/56 105/52 105/52 O2 Sat by Pulse 78 L 78 L 78 L Oximetry 08/19/18 08/19/18 08/19/18 02:00 02:15 02:30 Temperature 97.5 F L Pulse Rate 98 H 98 H 100 H Pulse Rate [ Anterior Bilateral Throughout] Pulse Rate [ From Monitor] Respiratory 30 H 30 H 30 H Rate Respiratory Rate [Anterior Bilateral Throughout] Blood Pressure 114/52 114/52 105/54 O2 Sat by Pulse 77 L 76 L 74 L Oximetry 08/19/18 08/19/18 08/19/18 02:45 03:00 03:01 Temperature Pulse Rate 100 H 100 H Pulse Rate [ Anterior Bilateral Throughout] Pulse Rate [ 110 H From Monitor] Respiratory 24 30 H 29 H Rate Respiratory Rate [Anterior Bilateral Throughout] Blood Pressure 105/54 90/18 O2 Sat by Pulse 77 L Oximetry 08/19/18 08/19/18 08/19/18 03:15 03:31 03:45 Temperature Pulse Rate 106 H 107 H 110 H Pulse Rate [ Anterior Bilateral Throughout] Pulse Rate [ From Monitor] Respiratory 27 H 29 H 30 H Rate Respiratory Rate [Anterior Bilateral Throughout] Blood Pressure 92/42 107/48 107/48 O2 Sat by Pulse 66 L 74 L 64 L Oximetry 08/19/18 08/19/18 08/19/18 04:00 04:15 04:30 Temperature 98.7 F Pulse Rate 111 H 112 H 114 H Pulse Rate [ Anterior Bilateral Throughout] Pulse Rate [ From Monitor] Respiratory 30 H 30 H 30 H Rate Respiratory Rate [Anterior Bilateral Throughout] Blood Pressure 107/46 107/46 109/47 O2 Sat by Pulse 55 L 43 L 61 L Oximetry 08/19/18 08/19/18 08/19/18 04:45 05:00 05:15 Temperature Pulse Rate 107 H 103 H 112 H Pulse Rate [ Anterior Bilateral Throughout] Pulse Rate [ 113 H From Monitor] Respiratory 30 H 29 H 30 H Rate Respiratory Rate [Anterior Bilateral Throughout] Blood Pressure 109/47 128/61 128/61 O2 Sat by Pulse Oximetry 08/19/18 08/19/18 08/19/18 05:30 05:40 05:45 Temperature Pulse Rate 115 H 113 H 115 H Pulse Rate [ Anterior Bilateral Throughout] Pulse Rate [ From Monitor] Respiratory 30 H 29 H Rate Respiratory Rate [Anterior Bilateral Throughout] Blood Pressure 120/64 128/61 120/64 O2 Sat by Pulse 71 L Oximetry 08/19/18 08/19/18 08/19/18 06:00 06:06 06:15 Temperature Pulse Rate 107 H 104 H 104 H Pulse Rate [ Anterior Bilateral Throughout] Pulse Rate [ From Monitor] Respiratory 30 H 30 H Rate Respiratory Rate [Anterior Bilateral Throughout] Blood Pressure 114/35 114/35 114/35 O2 Sat by Pulse Oximetry 08/19/18 08/19/18 08/19/18 06:31 06:45 07:00 Temperature Pulse Rate 110 H 114 H 112 H Pulse Rate [ Anterior Bilateral Throughout] Pulse Rate [ From Monitor] Respiratory 30 H 30 H 30 H Rate Respiratory Rate [Anterior Bilateral Throughout] Blood Pressure 114/35 88/40 80/53 O2 Sat by Pulse Oximetry 08/19/18 08/19/18 08/19/18 07:05 07:14 07:15 Temperature Pulse Rate 112 H 113 H Pulse Rate [ 113 H Anterior Bilateral Throughout] Pulse Rate [ From Monitor] Respiratory 30 H Rate Respiratory 30 H Rate [Anterior Bilateral Throughout] Blood Pressure 80/53 80/53 O2 Sat by Pulse Oximetry 08/19/18 08/19/18 08/19/18 07:31 07:45 08:00 Temperature 97.8 F Pulse Rate 115 H 115 H Pulse Rate [ Anterior Bilateral Throughout] Pulse Rate [ From Monitor] Respiratory 30 H 30 H Rate Respiratory Rate [Anterior Bilateral Throughout] Blood Pressure 80/53 80/53 O2 Sat by Pulse Oximetry 08/19/18 08/19/18 08/19/18 08:01 08:15 08:31 Temperature Pulse Rate 108 H 104 H 102 H Pulse Rate [ Anterior Bilateral Throughout] Pulse Rate [ From Monitor] Respiratory 30 H 30 H 30 H Rate Respiratory Rate [Anterior Bilateral Throughout] Blood Pressure 80/53 80/53 80/53 O2 Sat by Pulse Oximetry 08/19/18 08:45 Temperature Pulse Rate 103 H Pulse Rate [ Anterior Bilateral Throughout] Pulse Rate [ From Monitor] Respiratory 30 H Rate Respiratory Rate [Anterior Bilateral Throughout] Blood Pressure 80/53 O2 Sat by Pulse Oximetry CBC and BMP: 08/19/18 04:20 08/18/18 20:53 ABG, PT/INR, D-dimer: ABG POC ABG pH 7.064 (7.35-7.45) L 08/19/18 05:57 POC ABG pCO2 35.5 (35-45) 08/19/18 05:57 POC ABG pO2 52 (80-105) L 08/19/18 05:57 POC ABG HCO3 10.1 (22-26 mml/L) 08/19/18 05:57 POC ABG Total CO2 11 (23-27mmol/L) 08/19/18 05:57 POC ABG O2 Sat 71 08/19/18 05:57 PT/INR, D-dimer PT > 120.0 Sec. (12.2-14.9) H 08/19/18 04:20 INR > 17.67 (0.87-1.13) H* 08/19/18 04:20 Abnormal lab findings: Abnormal Labs 08/17/18 08/17/18 08/17/18 00:30 00:30 00:30 WBC 4.0 L RBC 2.78 L Hgb Hct 34.1 L MCV 123 H MCH 43 H MCHC 35 H RDW 22.4 H Plt Count 52 L Seg Neuts % (Manual) 12.0 L Lymphocytes % (Manual) 1.0 L Nucleated RBC % Seg Neutrophils # Man 0.5 L Lymphocytes # (Manual) 0.0 L PT 34.2 H INR 3.11 H APTT 47.6 H POC ABG pH POC ABG pCO2 POC ABG pO2 Sodium 120 L Potassium 3.3 L Chloride 74.5 L Carbon Dioxide 13 L BUN 7 L Creatinine 1.7 H Glucose 62 L POC Glucose Lactic Acid Calcium 7.6 L Magnesium Total Bilirubin Direct Bilirubin AST ALT Ammonia C-Reactive Protein Total Protein Albumin Urine WBC (Auto) Urine Creatinine Urine Total Protein Crossmatch 08/17/18 08/17/18 08/17/18 00:30 00:30 00:30 WBC RBC Hgb Hct MCV MCH MCHC RDW Plt Count Seg Neuts % (Manual) Lymphocytes % (Manual) Nucleated RBC % Seg Neutrophils # Man Lymphocytes # (Manual) PT INR APTT POC ABG pH POC ABG pCO2 POC ABG pO2 Sodium Potassium Chloride Carbon Dioxide BUN Creatinine Glucose POC Glucose Lactic Acid 16.80 H* Calcium Magnesium Total Bilirubin 13.40 H Direct Bilirubin 7.2 H AST 98 H ALT Ammonia 197.0 H C-Reactive Protein Total Protein Albumin 1.8 L Urine WBC (Auto) Urine Creatinine Urine Total Protein Crossmatch 08/17/18 08/17/18 08/17/18 01:53 02:00 03:23 WBC RBC Hgb Hct MCV MCH MCHC RDW Plt Count Seg Neuts % (Manual) Lymphocytes % (Manual) Nucleated RBC % Seg Neutrophils # Man Lymphocytes # (Manual) PT INR APTT POC ABG pH POC ABG pCO2 POC ABG pO2 Sodium Potassium Chloride Carbon Dioxide BUN Creatinine Glucose POC Glucose Lactic Acid 16.60 H* 16.50 H* Calcium Magnesium Total Bilirubin Direct Bilirubin AST ALT Ammonia C-Reactive Protein Total Protein Albumin Urine WBC (Auto) 7.0 H Urine Creatinine Urine Total Protein Crossmatch 08/17/18 08/17/18 08/17/18 03:23 04:21 06:20 WBC RBC Hgb Hct MCV MCH MCHC RDW Plt Count Seg Neuts % (Manual) Lymphocytes % (Manual) Nucleated RBC % Seg Neutrophils # Man Lymphocytes # (Manual) PT INR APTT POC ABG pH 7.293 L POC ABG pCO2 POC ABG pO2 66 L Sodium Potassium Chloride Carbon Dioxide BUN Creatinine Glucose POC Glucose Lactic Acid 10.90 H* Calcium Magnesium 1.50 L Total Bilirubin Direct Bilirubin AST ALT Ammonia C-Reactive Protein Total Protein Albumin Urine WBC (Auto) Urine Creatinine Urine Total Protein Crossmatch 08/17/18 08/17/18 08/17/18 08:10 15:16 15:16 WBC RBC Hgb Hct MCV MCH MCHC RDW Plt Count Seg Neuts % (Manual) Lymphocytes % (Manual) Nucleated RBC % Seg Neutrophils # Man Lymphocytes # (Manual) PT INR APTT POC ABG pH 6.978 L POC ABG pCO2 58.4 H POC ABG pO2 72 L Sodium Potassium Chloride Carbon Dioxide BUN Creatinine Glucose POC Glucose Lactic Acid 19.70 H* Calcium Magnesium Total Bilirubin Direct Bilirubin AST ALT Ammonia 321.0 H C-Reactive Protein Total Protein Albumin Urine WBC (Auto) Urine Creatinine Urine Total Protein Crossmatch 08/17/18 08/17/18 08/17/18 15:16 15:25 16:47 WBC RBC Hgb Hct MCV MCH MCHC RDW Plt Count Seg Neuts % (Manual) Lymphocytes % (Manual) Nucleated RBC % Seg Neutrophils # Man Lymphocytes # (Manual) PT INR APTT POC ABG pH 7.191 L POC ABG pCO2 POC ABG pO2 Sodium Potassium Chloride Carbon Dioxide BUN Creatinine Glucose POC Glucose Lactic Acid Calcium Magnesium Total Bilirubin Direct Bilirubin AST ALT Ammonia C-Reactive Protein 2.30 H Total Protein Albumin Urine WBC (Auto) Urine Creatinine 215.1 H Urine Total Protein 183 H Crossmatch 08/17/18 08/17/18 08/17/18 17:20 18:20 20:07 WBC RBC Hgb Hct MCV MCH MCHC RDW Plt Count Seg Neuts % (Manual) Lymphocytes % (Manual) Nucleated RBC % Seg Neutrophils # Man Lymphocytes # (Manual) PT INR APTT POC ABG pH POC ABG pCO2 POC ABG pO2 Sodium Potassium Chloride Carbon Dioxide BUN Creatinine Glucose POC Glucose < 40 L Lactic Acid 18.80 H* 20.20 H* Calcium Magnesium Total Bilirubin Direct Bilirubin AST ALT Ammonia C-Reactive Protein Total Protein Albumin Urine WBC (Auto) Urine Creatinine Urine Total Protein Crossmatch 08/18/18 08/18/18 08/18/18 03:53 04:46 10:26 WBC RBC Hgb Hct MCV MCH MCHC RDW Plt Count Seg Neuts % (Manual) Lymphocytes % (Manual) Nucleated RBC % Seg Neutrophils # Man Lymphocytes # (Manual) PT INR APTT POC ABG pH 7.236 L POC ABG pCO2 POC ABG pO2 76 L Sodium 121 L Potassium Chloride 75.3 L Carbon Dioxide 10 L BUN Creatinine 1.6 H Glucose POC Glucose 42 L Lactic Acid Calcium 7.0 L Magnesium Total Bilirubin 13.50 H Direct Bilirubin AST 4486 H ALT 607 H Ammonia C-Reactive Protein Total Protein 5.2 L D Albumin 1.3 L Urine WBC (Auto) Urine Creatinine Urine Total Protein Crossmatch 08/18/18 08/18/18 08/18/18 14:08 17:44 18:07 WBC RBC Hgb Hct MCV MCH MCHC RDW Plt Count Seg Neuts % (Manual) Lymphocytes % (Manual) Nucleated RBC % Seg Neutrophils # Man Lymphocytes # (Manual) PT INR APTT POC ABG pH 7.132 L POC ABG pCO2 POC ABG pO2 53 L Sodium Potassium Chloride Carbon Dioxide BUN Creatinine Glucose POC Glucose 47 L 65 L Lactic Acid Calcium Magnesium Total Bilirubin Direct Bilirubin AST ALT Ammonia C-Reactive Protein Total Protein Albumin Urine WBC (Auto) Urine Creatinine Urine Total Protein Crossmatch 08/18/18 08/18/18 08/18/18 18:38 20:53 20:53 WBC 2.7 L RBC 1.61 L Hgb 6.9 L D Hct 20.7 L D MCV 129 H MCH 43 H MCHC RDW 23.5 H Plt Count 23 L Seg Neuts % (Manual) 21.0 L Lymphocytes % (Manual) Nucleated RBC % 29.0 H Seg Neutrophils # Man 0.6 L Lymphocytes # (Manual) 0.5 L PT INR APTT POC ABG pH POC ABG pCO2 POC ABG pO2 Sodium 123 L Potassium Chloride 75.6 L Carbon Dioxide 13 L BUN Creatinine 2.6 H D Glucose 65 L POC Glucose < 40 L Lactic Acid Calcium 6.4 L Magnesium Total Bilirubin 12.00 H Direct Bilirubin AST 2987 H ALT 493 H Ammonia C-Reactive Protein Total Protein 4.1 L D Albumin 1.6 L Urine WBC (Auto) Urine Creatinine Urine Total Protein Crossmatch 08/18/18 08/18/18 08/18/18 20:53 23:27 23:36 WBC RBC Hgb Hct MCV MCH MCHC RDW Plt Count Seg Neuts % (Manual) Lymphocytes % (Manual) Nucleated RBC % Seg Neutrophils # Man Lymphocytes # (Manual) PT INR APTT POC ABG pH POC ABG pCO2 POC ABG pO2 Sodium Potassium Chloride Carbon Dioxide BUN Creatinine Glucose POC Glucose 50 L < 40 L Lactic Acid Calcium Magnesium Total Bilirubin Direct Bilirubin AST ALT Ammonia 185.0 H C-Reactive Protein Total Protein Albumin Urine WBC (Auto) Urine Creatinine Urine Total Protein Crossmatch 08/19/18 08/19/18 08/19/18 00:47 00:50 02:30 WBC RBC Hgb Hct MCV MCH MCHC RDW Plt Count Seg Neuts % (Manual) Lymphocytes % (Manual) Nucleated RBC % Seg Neutrophils # Man Lymphocytes # (Manual) PT > 120.0 H INR > 17.67 H* APTT POC ABG pH POC ABG pCO2 POC ABG pO2 Sodium Potassium Chloride Carbon Dioxide BUN Creatinine Glucose POC Glucose 64 L 166 H Lactic Acid Calcium Magnesium Total Bilirubin Direct Bilirubin AST ALT Ammonia C-Reactive Protein Total Protein Albumin Urine WBC (Auto) Urine Creatinine Urine Total Protein Crossmatch 08/19/18 08/19/18 08/19/18 02:30 04:20 04:20 WBC RBC Hgb 6.4 L 6.4 L Hct 20.1 L 20.4 L MCV MCH MCHC RDW Plt Count Seg Neuts % (Manual) Lymphocytes % (Manual) Nucleated RBC % Seg Neutrophils # Man Lymphocytes # (Manual) PT INR APTT POC ABG pH POC ABG pCO2 POC ABG pO2 Sodium Potassium Chloride Carbon Dioxide BUN Creatinine Glucose POC Glucose Lactic Acid Calcium Magnesium Total Bilirubin Direct Bilirubin AST ALT Ammonia 225.0 H C-Reactive Protein Total Protein Albumin Urine WBC (Auto) Urine Creatinine Urine Total Protein Crossmatch 08/19/18 08/19/18 08/19/18 04:20 04:36 05:34 WBC RBC Hgb Hct MCV MCH MCHC RDW Plt Count Seg Neuts % (Manual) Lymphocytes % (Manual) Nucleated RBC % Seg Neutrophils # Man Lymphocytes # (Manual) PT > 120.0 H INR > 17.67 H* APTT POC ABG pH 7.065 L POC ABG pCO2 POC ABG pO2 Sodium Potassium Chloride Carbon Dioxide BUN Creatinine Glucose POC Glucose < 40 L Lactic Acid Calcium Magnesium Total Bilirubin Direct Bilirubin AST ALT Ammonia C-Reactive Protein Total Protein Albumin Urine WBC (Auto) Urine Creatinine Urine Total Protein Crossmatch 08/19/18 08/19/18 08/19/18 05:39 05:57 07:30 WBC RBC Hgb Hct MCV MCH MCHC RDW Plt Count Seg Neuts % (Manual) Lymphocytes % (Manual) Nucleated RBC % Seg Neutrophils # Man Lymphocytes # (Manual) PT INR APTT POC ABG pH 7.064 L POC ABG pCO2 POC ABG pO2 52 L Sodium Potassium Chloride Carbon Dioxide BUN Creatinine Glucose POC Glucose 61 L Lactic Acid Calcium Magnesium Total Bilirubin Direct Bilirubin AST ALT Ammonia C-Reactive Protein Total Protein Albumin Urine WBC (Auto) Urine Creatinine Urine Total Protein Crossmatch See Detail 08/19/18 08/19/18 07:52 10:01 WBC RBC Hgb Hct MCV MCH MCHC RDW Plt Count Seg Neuts % (Manual) Lymphocytes % (Manual) Nucleated RBC % Seg Neutrophils # Man Lymphocytes # (Manual) PT INR APTT POC ABG pH POC ABG pCO2 POC ABG pO2 Sodium Potassium Chloride Carbon Dioxide BUN Creatinine Glucose POC Glucose < 40 L < 40 L Lactic Acid Calcium Magnesium Total Bilirubin Direct Bilirubin AST ALT Ammonia C-Reactive Protein Total Protein Albumin Urine WBC (Auto) Urine Creatinine Urine Total Protein Crossmatch
[2018-08-19] MEDS: Vasostrict 20 UNIT in NACL 0.9% 100 ML IV SCH (11:41)
[2018-08-19] MEDS ORDERED: NACL 0.9% 500 ML 500 ML ONE (11:50)
[2018-08-19] MEDS: PEPCID IV SCH (13:59)
[2018-08-19 16:36] VITALS: BP 213/90
--- NOTE | 2018-08-20 06:49 | Death Summary ---
Summary - Providers Date of service: 08/19/18 Consults: 08/17/18 03:04 Consult to Dietitian/Nutrition [CONS] Routine Physician Instructions: Reason For Exam: Reason for Consult: Malnutrition 08/17/18 03:36 Consult to Interventional Radiology [CONS] Routine Consulting Provider: TEMI SAUNDERS Reason For Exam: recurrent ascites 08/17/18 03:39 Consult to Physician [CONS] Routine Comment: Consulting Provider: JADE LY Physician Instructions: Reason For Exam: hepatic encephalopathy 08/17/18 04:31 Consult to Physician [CONS] Routine Comment: Consulting Provider: RICARDO VAUGHN Physician Instructions: Reason For Exam: arf 08/17/18 06:19 Consult to Physician [CONS] Routine Comment: Consulting Provider: CATIA WHITLEY Physician Instructions: Reason For Exam: acute respt failure 08/17/18 06:21 Consult to Dietitian/Nutrition [CONS] Routine Physician Instructions: Reason For Exam: Reason for Consult: Evaluate nutritional intake 08/17/18 08:06 Consult to PICC Line RN [CONS] Stat Reason For Exam: Vasopressors Type Line:: PICC 08/17/18 23:08 Consult to Wound/ET Nurse [CONS] Routine Reason For Exam: wound eval 08/18/18 10:03 Consult to Physician [CONS] Routine Comment: Consulting Provider: NIMISHA WU Physician Instructions: Reason For Exam: SBP Attending: LUCIO VILLEGAS MD - summary Date of admission: 08/17/18 02:57 Date of : 08/19/18 Significant findings: Patient is a 47-year-old man with history of chronic alcoholic liver disease who was brought to the ED via EMS for AMS, confusion. Per report, patient was brought from a nearby hotel due to confusion. While in ED, in went into cardiac arrest with PEA. He was emergently intubated and later successfully resuscitated. patient unfortunately has declined significantly with evidence of cardiopulmonary-hepatorenal failure consistent with multi-organ failure. Extensive coagulopathy not responsive to Vitamin K Patient is persistently hypoglycemic Despite Dextrose fluids, Will give bolus Will give Additional vitamin K and FFP today Patient today had 2 periods of cardiopulmonary arrest requiring resusitation efforts which initally was successfull but ultimately was not and patient wa pronounced at 1221. No family available to inform -Acute alcholic hepatic failure -MSOF -Circulatory shock -Acute hepatic encephalopathy -Acute respiratory failure with hypoxia -Recurrent massive ascites-2/2 end-stage alcoholic chronic liver disease -SIRS with lactic acidosis, with organ dysfunction suspected Sepsis -ARF-ATN+Probably hepatorenal syndrome -Acute on chronic hyponatremia -Hypokalemia/Hypomagnesemia -Acute metabolic acidosis -Left pleural effusion -Hypoglycemia -Severe protein calorie malnutrition -h/o Chronic alcohol abuse-Patient
== END 2018-08-19 15:00 | DRG 871 ==
LOC: ED 23:01 → IMCU 08-17 02:57 → CC1 08-17 06:37
PROVIDERS: ADMIT Internal Medicine; ATTEND Internal Medicine
PROC: 02HV33Z Insertion of Infusion Device into Superior Vena Cava, Percutaneous Approach (ICD-10-PCS; principal; 2018-08-17)
PROC: 4A033R1 Measurement of Arterial Saturation, Peripheral, Percutaneous Approach (ICD-10-PCS; 2018-08-17)
PROC: 5A1945Z Respiratory Ventilation, 24-96 Consecutive Hours (ICD-10-PCS; 2018-08-17)
PROC: 0BH17EZ Insertion of Endotracheal Airway into Trachea, Via Natural or Artificial Opening (ICD-10-PCS; 2018-08-17)
PROC: 30233K1 Transfusion of Nonautologous Frozen Plasma into Peripheral Vein, Percutaneous Approach (ICD-10-PCS; 2018-08-19)
DX: A41.9 Sepsis, unspecified organism (principal); J96.01 Acute respiratory failure with hypoxia; E43 Unspecified severe protein-calorie malnutrition; N17.0 Acute kidney failure with tubular necrosis; K76.7 Hepatorenal syndrome; R65.21 Severe sepsis with septic shock; J96.02 Acute respiratory failure with hypercapnia; E87.1 Hypo-osmolality and hyponatremia; E87.2 Acidosis; D61.818 Other pancytopenia; J91.8 Pleural effusion in other conditions classified elsewhere; F10.19 Alcohol abuse with unspecified alcohol-induced disorder; D68.4 Acquired coagulation factor deficiency; E72.20 Disorder of urea cycle metabolism, unspecified; E83.51 Hypocalcemia; E16.2 Hypoglycemia, unspecified; I46.9 Cardiac arrest, cause unspecified; K70.31 Alcoholic cirrhosis of liver with ascites; I50.9 Heart failure, unspecified; E87.6 Hypokalemia; E83.42 Hypomagnesemia; Y90.0 Blood alcohol level of less than 20 mg/100 ml; K70.40 Alcoholic hepatic failure without coma; Z68.38 Body mass index [BMI] 38.0-38.9, adult
CPT/HCPCS: 36415; 36600; 70450; 71045; 74018; 80048; 80053; 80076; 80320; 81001; 82140; 82570; 82803; 82962; 83735; 84156; 84300; 84484; 85007; 85014; 85018; 85025; 85610; 85730; 86140; 86850; 86900; 86901; 86920; 87040; 87070; 87076; 87186; 87205; 93005; 93010; 93970; 94002; 94003; 94640; G0378; G0480; J0171; J0692; J0696; J1265; J2405; J3370; J3411; J3430; J3475; J3480; J7030; J7040; J7042; J7070; P9017; P9047